=== PATIENT | male | born 1945 | race Caucasian/White ===

== ENCOUNTER 2020-04-03 17:05 | Inpatient (IN) | payer MEDICARE, OTHER ==
[~2020-04-03] VITALS: Ht 180.3 cm; Wt 101.6 kg
--- OUTSIDE RECORDS SUMMARY | ~2020-04-03 | XMS | Clinical Summary ---
Demographics + + + | Address | [address] | | | [place] [address] | + + + | Home Phone | | + + + | Preferred Language | Unknown | + + + | Marital Status | | + + + | Mandaen Affiliation | Unknown | + + + | Race | White | + + + | Ethnic Group | Unknown | + + + Author + + + | Author | [facility] | | | and [place] | + + + | Organization | [facility] | | | and [place] | + + + | Address | Unknown | + + + | Phone | Unavailable | + + + Support + + +---------+ + | Name | Relationship | Address | Phone | + + +---------+ + | Freya Rodriguez | ECON | Unknown | | + + +---------+ + Care Team Providers + +------+ + | Care [place] Supervisor Name | Role | Phone | + +------+ + | No, Physician | PCP | Unavailable | + +------+ + Allergies Not on File Medications Not on file Active Problems Not on file Social History + +-------+ +--------+------+ | Tobacco Use | Types | Packs/Day | Years | Date | | | | | Used | | + +-------+ +--------+------+ | Never Assessed | | | | | + +-------+ +--------+------+ + + + | Sex Assigned at | Date Recorded | | | | + + + | Not on file | | + + + Last Filed Vital Signs Not on file Plan of Treatment + + +-------+ + | Health Maintenance | Due Date | Last | Comments | | | | Done | | + + +-------+ + | Vaccine: | | | | | Dtap/Tdap/Td (1 - | 5 | | | | Tdap) | | | | + + +-------+ + | Vaccine: Zoster (1 | | | | | of 2) | 6 | | | + + +-------+ + | Vaccine: | | | | | Pneumococcal 65+ (1 | 1 | | | | of 1 - PPSV23) | | | | + + +-------+ + | Vaccine: Influenza | | | | | (#1) | 0 | | | + + +-------+ + Results Not on filefrom Last 3 Months"
--- OUTSIDE RECORDS SUMMARY | ~2020-04-03 | XMS | Encounter Summary ---
Demographics + + + | Address | [address] | | | [place] [address] | + + + | Home Phone | | + + + | Preferred Language | Unknown | + + + | Marital Status | | + + + | Judaism Affiliation | Unknown | + + + | Race | White | + + + | Ethnic Group | Unknown | + + + Author + + + | Author | [facility] | | | and [place] | + + + | Organization | [facility] | | | [...] Team Providers + +------+ + | Care County Demonstrator Name | Role | Phone | + +------+ + | Hernando Cummings DO | PCP | | + +------+ + Encounter Details +--------+ + + + + | Date | Type | Department | Care Team | Description | +--------+ + + + + | 06/23/ | Hospital | [facility] | Hernando Cummings | | | 2006 | Encounter | [facility] KEREN Smith DO [address] | | | | | [address] | [place] | | | | | [place], | [address] | | | | | [place] [address] | | | | | | [phone] | | | +--------+ + + + + Social History + +-------+ +--------+------+ | Tobacco [...] on file | | + + + documented as of this encounter Plan of Treatment Not on filedocumented as of this encounter Visit Diagnoses Not on filedocumented in this encounter"
--- OUTSIDE RECORDS SUMMARY | ~2020-04-03 | XMS | Encounter Summary ---
Demographics + + + | Address | [address] | | | [place] [address] | + + + | Home Phone | | + + + | Preferred Language | Unknown | + + + | Marital Status | | + + + | Nondenominational Affiliation | Unknown | + + + | Race | White | + + + | Ethnic Group | Unknown | + + + Author + + + | Author | [facility] | | | and [place] | + + + | Organization | [facility] | | | and [...] Team Providers + +------+ + | Care Post Framer Name | Role | Phone | + +------+ + | Hernando Cummings DO | PCP | | + +------+ + Encounter Details +--------+ + + + + | Date | Type | Department | Care Team | Description | +--------+ + + + + | 07/01/ | Hospital | [facility] | Hernando Cummings | | | 2006 | Encounter | [facility] IP Warren Smith DO [address] | | | | | [address] | [place] | | | | | [place], | [address] | | | | | [place] [address] | | | | | | [phone] | | | +--------+ + + + [...]
--- OUTSIDE RECORDS SUMMARY | ~2020-04-03 | XMS | Encounter Summary ---
Demographics + + + | Address | [address] | | | [place] [address] | + + + | Home Phone | | + + + | Preferred Language | Unknown | + + + | Marital Status | | + + + | Restoration Affiliation | Unknown | + + + [...] Team Providers + +------+ + | Care Senior Director Of [employer] Name | Role | Phone | + +------+ + PCP | Unavailable | + +------+ + Encounter Details +--------+ + + + + | Date | Type | Department | Care Team | Description | +--------+ + + + + | 10/26/ | Hospital | [facility] | PHYSICIAN, GUEST | | | 1989 | Encounter | [facility] | Physician, Er | | | | | [address]ERGENCY [address] | | | | | | [place] | | | | | | [address] | | | | | | [phone] | | | +--------+ + + + [...]
--- OUTSIDE RECORDS SUMMARY | ~2020-04-03 | XMS | Encounter Summary ---
Demographics + + + | Address | [address] | | | [place] [address] | + + + | Home Phone | | + + + | Preferred Language | Unknown | + + + | Marital Status | | + + + | Yazidi Affiliation | Unknown | + + + | Race | White | + + + | Ethnic Group | Unknown | + + + Author + + + | Author | [facility] | | | and [place] | + + + | Organization | [facility] | | | and [...] Team Providers + +------+ + | Care Tile Edger Name | Role | Phone | + +------+ + | Hernando Cummings DO | PCP | | + +------+ + Encounter Details +--------+ + + + + | Date | Type | Department | Care Team | Description | +--------+ + + + + | 05/19/ | Hospital | DO NOT USE-BAKARI | Hernando Cummings | | | 2006 - | Encounter | [facility] | DO [address] | | | | | [place] | [place] | | | 07/15/ | | | [address] | | | 2006 | | | | | +--------+ + + + [...] + + documented as of this encounter Discharge Summaries [facility] - 04/22/2008 12:00 AM PDT 13 5:43 AM PDTdocumented in this encounter [facility] 04/22/2008 12:00 AM PDT 13 5:43 AM PDTdocumented in this encounter H&P Notes [facility] 04/22/2008 12:00 AM PDT 13 5:43 AM PDTdocumented in this encounter Procedure Notes [facility] SC[facility] - 04/22/2008 12:00 AM PDT 13 5:43 AM PDTdocumented in this encounter Miscellaneous Notes Patient Care Conference - [facility] - 04/23/2008 12:00 AM PDT lan of Care - [facility] - 04/22/2008 12:00 AM PDT lan of Care - [facility] - 04/22/2008 12:00 AM PDT lan of Care - ON[facility] - 04/22/2008 12:00 AM PDT iscellaneous - ONBASE [facility]AN [facility] - 04/22/2008 12:00 AM P DT iscellaneous - ONBASE [facility] - 04/22/2008 12:00 AM PDT iscellaneous - ON[facility] - 04/22/2008 12:00 AM PDT sych - ON[facility] SC[facility] - 04/22/2008 12:00 AM PDTElectron ically signed by Andrez Thompson at 04/23/2013 5:43 AM PDTdocumented in this encounter Plan of Treatment Not on filedocumented as of this encounter Visit Diagnoses Not on filedocumented in this encounter"
--- OUTSIDE RECORDS SUMMARY | ~2020-04-03 | XMS | Encounter Summary ---
Demographics + + + | Address | [address] | | | [place] [address] | + + + | Home Phone | | + + + | Preferred Language | Unknown | + + + | Marital Status | | + + + | Holiness Affiliation | Unknown | + + + | Race | White | + + + | Ethnic Group | Unknown | + + + Author + + + | Author | [facility] | | | and [place] | + + + | Organization | [facility] | | | [...] Team Providers + +------+ + | Care Horse Race Timer Name | Role | Phone | + +------+ + | Hernando Cummings DO | PCP | | + +------+ + Encounter Details +--------+ + + + + | Date | Type | Department | Care Team | Description | +--------+ + + + + | 05/31/ | Hospital | [facility] | Hernando Cummings | | | 2006 | Encounter | [facility] IP Warern Smith DO [address] | | | | | [address] | [place] | | | | | [place], | [address] | | | | | [place] [address] | | | | | | [phone] | | | +--------+ + + + [...]
--- OUTSIDE RECORDS SUMMARY | ~2020-04-03 | XMS | Encounter Summary ---
Demographics + + + | Address | [address] | | | [place] [address] | + + + | Home Phone | | + + + | Preferred Language | Unknown | + + + | Marital Status | | + + + | Taoist Affiliation | Unknown | + + + | Race | White | + + + | Ethnic Group | Unknown | + + + Author + + + | Author | [facility] | | | and [place] | + + + | Organization | [facility] | | [...] Team Providers + +------+ + | Care Medical Lab Assistant Name | Role | Phone | + +------+ + | Hernando Cummings DO | PCP | | + +------+ + Encounter Details +--------+ + + + + | Date | Type | Department | Care Team | Description | +--------+ + + + + | 06/17/ | Hospital | [facility] | Hernando Cummings | | | 2006 | Encounter | [facility] KEREN Smith DO [address] | | | | | [address] | [place] | | | | | [place], | [address] | | | | | [place] [address] | | | | | | [phone] | | | +--------+ + + + [...]
--- OUTSIDE RECORDS SUMMARY | ~2020-04-03 | XMS | Clinical Summary ---
Demographics + + + | Address | [address] | | | [place] [address] | + + + | Home Phone | | + + + | Preferred Language | Unknown | + + + | Marital Status | | + + + | Jehovah'S Witness Affiliation | Unknown | + + + | Race | White | + + + | Ethnic Group | Unknown | + + + Author + + + | Author | [facility] | | | and [place] | + + + | Organization | [facility] | | | [...] Team Providers + +------+ + | Care Spring Layer Name | Role | Phone | + [...]
--- OUTSIDE RECORDS SUMMARY | ~2020-04-03 | XMS | Encounter Summary ---
Demographics + + + | Address | [address] | | | [place] [address] | + + + | Home Phone | | + + + | Preferred Language | Unknown | + + + | Marital Status | | + + + | Temple Affiliation | Unknown | + + + | Race | White | + + + | Ethnic Group | Unknown | + + + Author + + + | Author | [facility] | | | and [place] | + + + | Organization | [facility] | | [...] Team Providers + +------+ + | Care Counterperson Name | Role | Phone | + [...] [facility] IP Warren Smith DO [address] | | | | | [address] | [place] | | | | | [place], | [address] | | | | | [place] [address] | | | | | | [phone] | | | +--------+ + + + [...]
--- OUTSIDE RECORDS SUMMARY | ~2020-04-03 | XMS | Encounter Summary ---
Demographics + + + | Address | [address] | | | [place] [address] | + + + | Home Phone | | + + + | Preferred Language | Unknown | + + + | Marital Status | | + + + | Buddhism Affiliation | Unknown | + + + | Race | White | + + + | Ethnic Group | Unknown | + + + Author + + + | Author | [facility] | | | and [place] | + + + | Organization | [facility] | | | [...] Team Providers + +------+ + | Care Institutional Nutrition Consultant Name | Role | Phone | + [...] | | | [place] | [place] | | | 07/15/ | | | [address] | | | 2006 | | | [...] documented as of this encounter Discharge Summaries [facility] SC[facility] - 04/22/2008 12:00 AM PDT 13 5:43 AM PDTdocumented in this encounter [facility] 04/22/2008 12:00 AM PDT 13 5:43 AM PDTdocumented in this encounter H&P Notes [facility] 04/22/2008 12:00 AM PDT 13 5:43 AM PDTdocumented in this encounter Procedure Notes [facility] - 04/22/2008 12:00 AM PDT 13 5:43 AM PDTdocumented in this encounter Miscellaneous Notes Patient Care Conference - [facility] SC[facility] - 04/23/2008 12:00 AM PDT lan of Care - [facility] - 04/22/2008 12:00 AM PDT lan of Care - [facility] - 04/22/2008 12:00 AM PDT lan of Care - ON[facility] - 04/22/2008 12:00 AM PDT iscellaneous - ONBASE SCAN [facility] - 04/22/2008 12:00 AM P DT iscellaneous - ONBASE [facility] - 04/22/2008 12:00 AM PDT iscellaneous - ONBASE SCAN [facility] - 04/22/2008 12:00 AM PDT sych - ONBASE [facility] - 04/22/2008 12:00 AM PDTElectron ically signed by Andrez Thompson at 04/23/2013 5:43 AM PDTdocumented in this encounter Plan of Treatment Not on filedocumented as of this encounter Visit Diagnoses Not on filedocumented in this encounter"
--- OUTSIDE RECORDS SUMMARY | ~2020-04-03 | XMS | Encounter Summary ---
Demographics + + + | Address | [address] | | | [place] [address] | + + + | Home Phone | | + + + | Preferred Language | Unknown | + + + | Marital Status | | + + + | Baptism Affiliation | Unknown | + + + | Race | White | + + + | Ethnic Group | Unknown | + + + Author + + + | Author | [facility] | | | and [place] | + + + | Organization | [facility] | | | and [...] Team Providers + +------+ + | Care Consultant Education Name | Role | Phone | + [...] [facility] IP Warren Smith DO [address] | | | | | [address] | [place] | | | | | [place], | [address] | | | | | [place] [address] | | | | | | [phone] | | | +--------+ + + + [...]
--- OUTSIDE RECORDS SUMMARY | ~2020-04-03 | XMS | Encounter Summary ---
Demographics + + + | Address | [address] | | | [place] [address] | + + + | Home Phone | | + + + | Preferred Language | Unknown | + + + | Marital Status | | + + + | Yazidi Affiliation | Unknown | + + + | Race | White | + + + | Ethnic Group | Unknown | + + + Author + + + | Author | [facility] | | | and [place] | + + + | Organization | [facility] | | | and [...] Team Providers + +------+ + | Care High Lift Operator Name | Role | Phone | + [...] | [facility] KEREN Smith DO [address] | | | | | [address] | [place] | | | | | [place], | [address] | | | | | [place] [address] | | | | | | [phone] | | | +--------+ + + + [...]
--- OUTSIDE RECORDS SUMMARY | ~2020-04-03 | XMS | Encounter Summary ---
Demographics + + + | Address | [address] | | | [place] [address] | + + + | Home Phone | | + + + | Preferred Language | Unknown | + + + | Marital Status | | + + + | Latter-Day Affiliation | Unknown | + + + | Race | White | + + + | Ethnic Group | Unknown | + + + Author + + + | Author | [facility] | | | and [place] | + + + | Organization | [facility] | | | and [...] Team Providers + +------+ + | Care Physiognomist Name | Role | Phone | + +------+ + PCP | Unavailable | + +------+ + Encounter Details +--------+ + + + + | Date | Type | Department | Care Team | Description | +--------+ + + + + | 02/26/ | Hospital | [facility] | Kori Condon MD | | | 1996 | Encounter | [facility] | [place] | | | | | [address] | | | | | | [place], | | | | | | [place] [address] | | | | | | [phone] | | | +--------+ + + + [...]
--- OUTSIDE RECORDS SUMMARY | ~2020-04-03 | XMS | Encounter Summary ---
Demographics + + + | Address | [address] | | | [place] [address] | + + + | Home Phone | | + + + | Preferred Language | Unknown | + + + | Marital Status | | + + + | Yarsani Affiliation | Unknown | + + + | Race | White | + + + | Ethnic Group | Unknown | + + + Author + + + | Author | [facility] | | | and [place] | + + + | Organization | [facility] | | | and [...] Team Providers + +------+ + | Care Pump Room Operator Name | Role | Phone | [...] | | | | | | [place] [address] | | | | | | [phone] | | | +--------+ + + + [...]
--- OUTSIDE RECORDS SUMMARY | ~2020-04-03 | XMS | Encounter Summary ---
Demographics + + + | Address | [address] | | | [place] [address] | + + + | Home Phone | | + + + | Preferred Language | Unknown | + + + | Marital Status | | + + + | Rastafari Affiliation | Unknown | + + + | Race | White | + + + | Ethnic Group | Unknown | + + + Author + + + | Author | [facility] | | | and [place] | + + + | Organization | [facility] | | | [...] Team Providers + +------+ + | Care Group Leader [employer]iconductor Processing Name | Role | Phone | + [...] | [facility] KEREN Smith DO [address] | | | | | [address] | [place] | | | | | [place], | [address] | | | | | [place] [address] | | | | | | [phone] | | | +--------+ + + + [...]
--- OUTSIDE RECORDS SUMMARY | ~2020-04-03 | XMS | Encounter Summary ---
Demographics + + + | Address | [address] | | | [place] [address] | + + + | Home Phone | | + + + | Preferred Language | Unknown | + + + | Marital Status | | + + + | Latter Day Affiliation | Unknown | + + + | Race | White | + + + | Ethnic Group | Unknown | + + + Author + + + | Author | [facility] | | | and [place] | + + + | Organization | [facility] | | | and [...] Team Providers + +------+ + | Care Harness And Bag Inspector Name | Role | Phone | + [...] [place] | | | | | | [address] | | | | | | [phone] | | | +--------+ + + + [...]
[2020-04-03] MEDS ORDERED: ADULT ASPIRIN R81 MG PO (17:18)
[2020-04-03] MEDS ORDERED: VITAMIN B122500 MC1 PO (17:18)
[2020-04-03] MEDS ORDERED: VITAMIN D325 MCG PO (17:19)
--- NOTE | 2020-04-03 20:30 | NUR ---
ADMIT TO RM 128 PER STRETCHER FROM ED. PT IS AWAKE ALERT, ABLE TO MOVE SELF FROM STRETCHER TO BED. WILL REPEAT SOME QUESTIONS. TREMOR NOTED HANDS AND ALSO CHIN WHEN TEMP TAKEN. WHEN ASKED IF TREMOR WAS USUAL PT STATED NO. STATES HE IS DEHYDRATED FROM DOING YARD WORK. HR 140-160'S, DILTIAZEM GTT AT 10MG /HR, INCREASED TO 15MG/HR.
--- NOTE | 2020-04-03 21:25 | NUR ---
PER HE RN CALL PLACED TO DR. MARCIAL REGARDING IVF RATE INCREASE TO 200 MLS/HR AND DILTIAZEM 20 MG/HR. PT HR CURRENTLY 138-140. AFTER DISCUSSION OF PT PAST ETOH HX AND CURRENT SYMPTOMS OF TREMOR AND FORGETFULNESS, DR. MARCIAL TO START CIWA PROTOCOL. FURTHER ORDERS TO BE PLACED BY DR. MARCIAL. WILL UPDATE PRIMARY RN WHEN ADMISSION IS COMPLETE.
--- NOTE | 2020-04-03 21:30 | NUR ---
DILTIAZEMT GTT AT 20MG/HR HE CONTTO BE 130-140.
--- NOTE | 2020-04-03 22:15 | NUR ---
SECON IV STARTED AFTER SEVERAL ATTEMPTS. LAB DRAWN AND BLOOD CULTURES SENT. PT CONT TO BE VERY TALKATIVE AND REPETATIVE. GIVEN 5MG LOPRESSOR IV FOR HR. GIVEN 1MG ATIVAN FOR ANXIETY AND TREMORS.
--- NOTE | 2020-04-03 22:35 | NUR ---
ABLE TO TITRATE DILTIAZEM TO 10MG/HR BY 2215. DR MARCIAL NOTIFIED OF LACTIC ACID VALUE. WILL START 1 LNS BOLUS.
--- NOTE | 2020-04-04 00:30 | NUR ---
RESTING, BUT NOT SLEEPING. PT ASKING IF THE DIGITAL CLOCK ON WALL TALKED, WHEN NURSE MENTIONED THAT IV PUMPS MAKE NOISE PT THEN SPOKE ABOUT THEM SHOWING PICTURES OF PIONEERS. PT IS AWARE HE IS IN THE HOSPTITAL AND HAS PNUEMONIA. IS COOPERATIVE. CONT TO HAVE MILD TO MOD TREMOR. CONT ON DILTIAZEM GTT AT 10MG/HR. HR 95-110.
--- NOTE | 2020-04-04 02:38 | NUR ---
NOT HEARING VOICES NOW . HAS NOT REALLY SLEPT, GIVEN 1MG ATIVAN IV. IS SOMEWHAT ANXIOUS, ALSO CONT TO HAVE TREMORS. DILTIAZEM DEC TO 7.5MG/HR. DR MARCIAL GIVEN UPDATE AT 0120.
--- NOTE | 2020-04-04 03:57 | NUR ---
PT NOT SLEEPING, [employer] TREMORS [employer]. CIWA 18, DR MARCIAL CALLED AND ORDER FOR 2MG ATIVAN IV Q2HR PRN GIVEN.
--- NOTE | 2020-04-04 04:57 | NUR ---
SPEECH RAMBLING AND UNABLE TO FOLLOW INSTRUCTIONS/COMMANDS. REACHING OUT, PICKING THE AIR. UNDERWARE REMOVED AND ATTENDS PLACED. DID ATTEMPT TO HAVE PT VOID IN URINAL BUT PT UNABLE TO. IS VERY DIAPHORETIC.
--- NOTE | 2020-04-04 05:30 | NUR ---
PT SLEEPING. CARDIZEM AT 7.5MG
--- NOTE | 2020-04-04 07:26 | NUR ---
TRYING TO GET OOB. UNABLE TO FULLY SIT UP ON OWN. STATES WANTS TO GET UP. HAD PT TRY TO USE URIAN. VOIDED MFEW ML. DISORIENTED TO DATE TIME PLACE AND EVENT. GIVEN 2 MG ATIVAN IV.
--- NOTE | 2020-04-04 07:30 | NUR ---
REPORT RECIEVED. REMAINS RESTLESS AFTER AIVAN GIVEN. NOT MAKING SENSE WITH WORDS HE IS SAYING.
--- NOTE | 2020-04-04 08:00 | NUR ---
ATTEMPTING TO GET OOB. DIFFICULT TO REASON WITH PATIENT. IS SHORT OF BREATH, INCREASE WITH EXERTION.
--- NOTE | 2020-04-04 08:41 | NUR ---
VERY RESTLESS. IS NOT MAKING ANY SENSE WITH WHAT HE IS SAYING. NOT TRACKING AT ALL. IS ABLE TO FOLLOW COMMANDS, SUCH WIGGLING TOES. HAS BEEN TRYING TO GET OOB. UNABLE TO GET THROUGH TO PATIENT REGARDING NEED TO REMAINS IN BED. BREAKFAST HELD DUE TO CONDITION AT THIS TIME. CARDIZEM INFUSING AT 7.5 MG/HR. IVF PATENT AT 125 ML/HR. ROUNTINE MEDICATIONS GIVEN, INCLUDING LOPRESSOR 5 MG IV. PATIENT WILL NEED CLOSE OBSERVATION. WILL MEDICATE WITH ATIVAN NEEDED.
--- NOTE | 2020-04-04 08:50 | NUR ---
DR. MARCIAL UPDATE ON PATIENT CONDITION. ORDERS RECIEVED TO GIVE ATIVAN 2 MG IV NOW. PATIENT CONTINUES TO ATTEMPT TO GET OOB. IS NOT DIRECTABLE.
--- NOTE | 2020-04-04 10:50 | NUR ---
MORE RESTLESS. ATTEMPTING TO GET OOB. ATIVAN 2 MG IV GIVEN. KATIA LINEN CHANGED. PATIENT IS VERY RESISTANT TO MOVE IN BED. VERY DIFFICULT TO MOVE PATIENT. O2 INCREAED TO 4 L O2 SATS DOWN TO 88 ON 2 L .
--- NOTE | 2020-04-04 12:02 | NUR ---
TALKED WITH PATIENTS VIA PHONE. PATIENT IS MUCH MORE CALM AFTER ATIVAN 2 MG IV GIVEN AT 1055. CARDIZEM GTT REMAINS AT 5 MG/HR. IVF AT 125. HAS NOT VOIDED YET THIS SHIFT. ASSESSMENT DONE. IS MUMBLING FEW WORDS, IS DIFFICULT TO UNDERSTAND.
--- NOTE | 2020-04-04 12:26 | NUR ---
COOPERATIVE EDUCATION DIRECTOR HERE TO DO ECHO AT BEDSIDE.
--- NOTE | 2020-04-04 13:20 | NUR ---
PATIENT REMAINS VERY RESTLESS. DR. MARCIAL HERE TO SEE PATIENT. CONTINUES TO MUMBLE FEW WORDS, UNABLE TO UNDERSTAND. WILL ATTEMPT TO SIT UP IN BED. SWINGS LEGS TO SIDE OF BED.
--- NOTE | 2020-04-04 13:30 | NUR ---
MARTINEZ CATH PLACED WITH RETURN OF DARK ORANGE URINE. PATIENT IS RESTLESS. O2 TO OXYMASK AT [address] MARCIAL AWARE. UA SENT TO LAB. ORDERS RECIEVED. CARDIZEM GTT AT 5 MG/HR. NS AT 125 ML/HR. ATIVAN 2 MG IV REPEATED PATIENT IS SO RESTLESS. HAS BEEN RECIEVING 2 MG ATIVAN Q 2 HRS SINCE 07 THIS AM. LABS DRAWN.
--- NOTE | 2020-04-04 14:30 | NUR ---
DR. MARCIAL UPDATED ON PATIENT CONTINUE AGITATION AND VERY LOW URINE OUTPUT. . AWAITING LABS AT THIS TIME. D
--- NOTE | 2020-04-04 14:35 | EKG ---
[facility] [address] [facility] [place], [place] [address] Signed Atrial fibrillation with rapid ventricular response Possible Anterior infarct , age undetermined Abnormal ECG No previous ECGs available Confirmed by SUSIE MARCIAL MD ([id number]) on 04/04/2020 2:35:40 PM Electronically Signed By: SUSIE MARCIAL MD 04/04/20 1435 PATIENT NAME: ADRIENNE LANDRUM Electrocardiogram DATE OF : 45 PHYSICIAN: SUSIE MARCIAL MD REPORT #: [id number] REPORT IS CONFIDENTIAL AND NOT TO BE RELEASED WITHOUT AUTHORIZATION
--- NOTE | 2020-04-04 15:15 | NUR ---
LAB RESULTS, K= 5.2 BUN AND CREAT ARE INCREASING. NS BOLUS 1000 ML OVER 1 HR HUNG. WILL GIVE LACTULOSE ORDERED. AMMONIA LEVEL 47.
--- NOTE | 2020-04-04 15:45 | NUR ---
VALIUM 5 MG IV GIVEN PER ORDERS. LACTULOSE 200 MG IN 700 ML OF WATER GIVEN [place] ORDERS. TOLERATED POOR. NOT COOPERATIVE., NOT ABLE TO HOLD SOLUTION. PATIENT WAS UNABLE TO HOLD SOLUTION. IT RETURNED QUICKLY TO BED BRIDGES.
--- NOTE | 2020-04-04 16:20 | NUR ---
BOLUS INFUSED. IVF OF NS 125 HUNG. ASSESSMENT DONE. EXTREMLY POOR U/O OF 10ML OF ORANGE LIKE URINE OVER PAST HR. O2 INCREASED TO 8 LITERS EARLIER. REMAINS ON OXYMASK.
--- NOTE | 2020-04-04 16:50 | NUR ---
CARDIZEM GTT INCREASED TO 10 MG/HR HR UP TO 130-140'S.
--- NOTE | 2020-04-04 17:00 | NUR ---
DR. MARCIAL UPDATED ON PATIENT STATUS. IS AWARE OF CURRENT VITAL SIGNS. I/O. DECREASED U/O. O2 DEMAND INCREASE. ABD BREATHING WITH LONG EXP PHASE.
--- NOTE | 2020-04-04 17:40 | NUR ---
DR. MARCIAL IN UNIT. V.O. FOR ABGS GIVEN.
--- NOTE | 2020-04-04 18:14 | NUR ---
ABGS DRAWN. UPPER WHEEZES HEARD. LABORED RESP.
--- NOTE | 2020-04-04 18:35 | NUR ---
ABG RESULTS. PH-7.32, PCO2-40.0, PO2-83, HCO3-19.8. DR. ANIKET HOLGUIN.
--- NOTE | 2020-04-04 19:14 | NUR ---
REPORT TO NEXT SHIFT. CONTINUES ON O2 AT 8 L OXYMASK, CARDIZEM AT 15 MG/HR. HR 110-120 BPM. BP-131/79. IV SITES PATENT. HAS HAD NOTHING BY MOUTH ALL DAY. LAST SEDATION GIVEN AT 1545 THIS AFTERNOON. CONTINUES WITH UPPER AIRWAY WHEEZES WITH INCREASED EXERTION. HAS HAS TREMORS FOR MOST OF DAY. REMIANS CONFUSED TO ALL. FACE IS VERY ALLAN.
--- NOTE | 2020-04-04 20:15 | NUR ---
EVENING MEDS PROVIDED PER ORDER. PATIENT IS RESTLESS, RESPONDS MINIMALLY TO VERBAL COMMANDS. UNABLE TO ANSWER ANY ORIENTATION QUESTIONS. PATIENT REPOSITIONED IN BED. HOB ELEVATED. ABDOMINAL BREATHING NOTED. 8L OXY MASK IN PLACE, O2 SAT 92% AND RR 20'S. AND IS SOFT. MARTINEZ IN PLACE. MINIMAL DARK URINE OUTPUT. HR 120-125, CARDIZEM AT 15 MG/HR.
[2020-04-04] MEDS ORDERED: ENOXAPARIN40 MG/0.4 SUB-Q (20:43)
[2020-04-04] MEDS ORDERED: CEFTRIAXONE2 G1 IV (20:43)
[2020-04-04] MEDS ORDERED: METOPROLOL5 MG/5 M2 IV (20:43)
[2020-04-04] MEDS ORDERED: LACTULOSE10 GM/151 PR (20:44)
[2020-04-04] MEDS ORDERED: LORAZEPAM2 MG/1 M1 IV (20:44)
[2020-04-04] MEDS ORDERED: THIAMINE H100 MG/1 M IV (20:45)
[2020-04-04] MEDS ORDERED: PROTONIX IV40 MG IV (20:45)
--- NOTE | 2020-04-04 21:02 | PATH ---
[facility] [address] [facility] [facility] [place], [place] [address] Signed ORDERING PHYSICIAN: Everton Yañez MD PATIENT NAME: ADRIENNE LANDRUM GENDER: Paulie : 1945 SPECIMEN(S): MOLECULAR PATHOLOGY RESULTS: SARS-CoV-2 Not Detected ADDITIONAL NOTES.: The [place] Fusion SARS-CoV-2 Assay is a multiplex real-time PCR (RT-PCR) in vitro diagnostic test intended for the qualitative detection of RNA from SARS-CoV-2 from individuals who meet COVID-19 clinical and/or epidemiological criteria. In general, SARS-CoV-2 RNA can be detected during the acute phase of infection. Positive results indicate the presence of SARS-CoV-2 RNA. Clinical correlation with patient history and other diagnostic information is necessary to determine patient infection status. Positive results do not rule out bacterial infection or co-infection with other viruses. Negative results do not preclude SARS-CoV-2 infection and should not be used as the sole basis for patient management decisions. Negative results must be combined with other clinical observations, patient history, and epidemiological information. The [place] Fusion SARS-CoV-2 Assay is not yet approved or cleared by the [place] FDA. When there are no FDA-approved or cleared tests available, and other criteria are met, FDA can make tests available under an emergency access mechanism called an Emergency Use Authorization (EUA). The EUA for this test is supported by the [place] of Health and Human Service's (HHS's) declaration that circumstances exist to justify the emergency use of in vitro diagnostics for the detection and/or diagnosis of the virus that causes COVID-19. This EUA will remain in effect for the duration of the COVID-19 declaration justifying emergency of IVDs, unless it is terminated or revoked by FDA, after which the test may no longer be used. The [place] Fusion SARS-CoV-2 Assay is for use only under EUA in US laboratories certified under the Clinical Laboratory Improvement Amendments of 1988 (CLIA) to perform high complexity tests. [facility] is certified under CLIA to perform high complexity PATIENT NAME: ADRIENNE LANDRUM PATHOLOGY DATE OF : 45 REPORT #: [id number] PHYSICIAN: CHARO ESQUIVEL PCP: LEONORA LANDRUM REPORT IS CONFIDENTIAL AND NOT TO BE RELEASED WITHOUT AUTHORIZATION [address] [address] Signed clinical laboratory testing. PERFORMING LABORATORY.: Molecular testing was performed by [facility] [address] [place], [place] [address], [place] [address] ([employer]: Sunny Randhawa D.O.; CLIA#: [id number]) Diagnostician: System Interface Pathologist Electronically Signed 04/04/2020 Copies: ~ PATIENT NAME: ADRIENNE LANDRUM PATHOLOGY DATE OF : 45 REPORT #: [id number] PHYSICIAN: CHARO ESQUIVEL PCP: LEONORA LANDRUM REPORT IS CONFIDENTIAL AND NOT TO BE RELEASED WITHOUT AUTHORIZATION
--- NOTE | 2020-04-04 21:42 | NUR ---
PATIENT RESTING MORE PEACEFULLY. HR 100-110, VS STABLE.
--- NOTE | 2020-04-04 22:49 | NUR ---
2200 [facility] ARRIVED. PATIENT RESTLESS WHEN STIMULATED. PRN ATIVAN GIVEN FOR TRANSFER. PATIENT CONTINUED ON CARDIZEM DRIP AND IV FLUIDS PER ORDER. VS STABLE UPON DEPARTURE. 2215 REPORT GIVEN TO ACCEPTING HOSPITAL. 2220 FAMILY UPDATED
== END 2020-04-04 22:20 | disposition short-term general hospital (02) | DRG 308 ==
LOC: ED 17:05 → CCU 19:30
PROVIDERS: ADMIT Internal Medicine
DX: I48.91 Unspecified atrial fibrillation (principal); N17.0 Acute kidney failure with tubular necrosis; E87.2 Acidosis; F10.231 Alcohol dependence with withdrawal delirium; Z20.828 Contact with and (suspected) exposure to other viral communicable diseases; K21.9 Gastro-esophageal reflux disease without esophagitis; E53.8 Deficiency of other specified B group vitamins; K70.9 Alcoholic liver disease, unspecified; D69.59 Other secondary thrombocytopenia; I42.9 Cardiomyopathy, unspecified; E86.0 Dehydration; Z79.899 Other long term (current) drug therapy; Z79.82 Long term (current) use of aspirin
CPT/HCPCS: 36600; 71045; 80048; 80053; 80076; 81001; 82140; 82607; 82803; 83605; 83615; 83735; 84484; 85025; 85379; 85610; 93005; 93010; 93306; 96374; 96376; 99285-25; C9113; C9803; G0480; J0456; J0696; J1100; J1650; J2060; J2405; J3360; J3411; J7030; J7060

== ENCOUNTER 2023-07-14 22:38 | Inpatient (IN) | payer MEDICARE ==
[~2023-07-14] VITALS: Ht 180.3 cm; Wt 101.6 kg
[~2023-07-14 22:38] MED LIST: ADULT ASPIRIN R81 MG PO; ATORVASTATIN CA40 MG PO; AZO BLADDER CO300 MG PO; B-100 COMPLEX100 MG PO; CEFTRIAXONE2 G1 IV; ENOXAPARIN40 MG/0.4 SUB-Q; K-TAB ER20 MEQ PO; LACTULOSE10 GM/151 PR; LANOXIN125 MCG PO; LASIX20 MG PO; LIDODERM1 EACH TOP; LISINOPRIL5 MG PO; LORAZEPAM2 MG/1 M1 IV; METOPROLOL SUCC25 MG PO; METOPROLOL5 MG/5 M2 IV; OMEPRAZOLE20 MG PO; PROTONIX IV40 MG IV; SIMVASTATIN20 MG PO; SLOW-MAG71.5 MG PO; THIAMINE H100 MG/1 M IV; TOPROL XL100 MG PO; VITAMIN D325 MCG PO; WARFARIN SODIUM5 MG PO; ZESTRIL2.5 MG PO
[2023-07-14 23:21] LABS: BASOPHILS 0.5 % (0-2); EOSINOPHILS 2.3 % (0-6); HEMATOCRIT 24.7 % (35.0-50.0); HEMOGLOBIN 8.6 g/dL (12.0-18.0); LYMPHOCYTES 15.4 % (24-44); MCH 34.6 (27-36); MCHC 34.7 g/dl (30-36); MCV 99.6 fl (81-99); MONOCYTES 10.2 % (0-12); NEUTROPHILS 71.6 % (39-80); PLATELET COUNT 131 K/uL (140-440); RBC 2.48 M/ul (4.3-5.7); RDW 13.7 (10.5-15.0)
[2023-07-14 23:30] LABS: INR 17.92 (0.80-1.30)
[2023-07-14 23:36] LABS: ALBUMIN 3.2 g/dL (3.4-5.0); ANION GAP 16.2 (7-21); BILIRUBIN, TOTAL 0.8 ng/dL (0.2-1.0); BUN/CREATININE RATIO 29.45 (6.0-28.6); CALCIUM 8.3 mg/dL (8.5-10.1); CREATININE, SERUM 1.29 mg/dL (0.70-1.30); POTASSIUM 4.2 mmol/L (3.5-5.1); PROTEIN, TOTAL 6.4 g/dL (6.4-8.2)
[2023-07-15] VITALS (19 sets, daily range): BP systolic 85–159; BP diastolic 43–102
[2023-07-15 00:44] LABS: ABO O; ANTIBODY SCREEN NEGATIVE; RH POSITIVE
--- NOTE | 2023-07-15 07:30 | NUR ---
REPORT RECEIVED FROM [facility] HOUSE FLOAT - PT RESTING IN BED AWAKE AND ALERT. ORIENTED X4. NOTED TO HAVE EMESIS - CLEAR, APPROX 50ML. PT STATES HE HASNT EATEN ANYTHING "ALL DAY" AND THAT IS WHY HE IS NAUSEATED. LAB IN ROOM TO DRAW LABS. NOTED THAT BLOOD BAND DOES NOT HAVE CORRECT LAST NAME, ORDER ENTERED FOR NEW TYPE AND SCREEN. BLOOD BAND REPLACED WITH LAB. LACERATION ON TOP OF HEAD NO LONGER BLEEDING - FRESH MOIST WASH RAG PLACED ON HEAD PER PT REQUEST. LEFT LOWER LEG SIGNIFICANT NON PITTING EDEMA WITH MULTIPLE STAGES OF BRUISING ALL OVER. PT STATES THIS HAS BEEN ONGOING FOR SEVERAL DAYS WITHOUT KNOWN INJURY.
--- NOTE | 2023-07-15 08:05 | NUR ---
PRN MORPHINE 2MG ADMINISTERED FOR 7/10 PAIN IN LEFT LOWER LEG. PEDAL PULSE FOUND WITH DOPPLER - FAINT - CONSISTENT WITH RATE ON HEART MONITOR. PT STATES NAUSEA IS IMPROVED, SIPPING APPLE JUICE. ORAL PROTONIX SWALLOWED WITHOUT DIFFICULTY.
[2023-07-15 08:11] LABS: HEMOGLOBIN 7.7 g/dL (12.0-18.0)
[2023-07-15 08:13] LABS: BASOPHILS 0.3 % (0-2); EOSINOPHILS 0.1 % (0-6); HEMATOCRIT 22.8 % (35.0-50.0); MCH 34.2 (27-36); MCHC 33.9 g/dl (30-36); MCV 100.9 fl (81-99); MONOCYTES 9.5 % (0-12); NEUTROPHILS 84.1 % (39-80); PLATELET COUNT 123 K/uL (140-440); RBC 2.26 M/ul (4.3-5.7); RDW 13.6 (10.5-15.0)
[2023-07-15 08:18] LABS: INR 2.32 (0.80-1.30); PROTIME 24.5 Sec (11.2-14.2)
--- NOTE | 2023-07-15 08:29 | NUR ---
PT RESTING IN BED WITH EYES CLOSED. RR EVEN AND UNLABORED. AT BEDSIDE.
[2023-07-15 09:05] LABS: ABO O; RH POSITIVE
--- NOTE | 2023-07-15 09:05 | NUR ---
PT EXPERIENCING EMESIS - 5MG COMPAZINE ADMINISTERED IV. EMESIS REMAINS CLEAR/LIGHT GREEN IN COLOR. CIWA SCORE REMAINS AT 10, POSISTIVE FOR TREMORS, NAUSEA/VOMITING AND DIAPHORESIS. WILL CONTINUE TO ASSESS.
[2023-07-15 09:06] LABS: ANTIBODY SCREEN NEGATIVE
--- NOTE | 2023-07-15 09:06 | NUR ---
VOMITED 100 ML OF LIGHT YELLOW STOMACH CONTENTS.
--- NOTE | 2023-07-15 09:10 | NUR ---
Spoke with pt for CM assessment. Pt has some trouble giving history. He states he lives with his in a one story home. Per nurse, states he is a heavy drinker. Pt states he is active, he cont. to work and does [place], and [facility]. Pt states he has had problems for a few years with AFIB and he had an incident with his R leg 2-3 years ago and it does not work well. He is unable to remember why/how his leg was injured. He does state he was shipped and had surgery. There was possible neuro injury to leg, he cannot remember. Pt states he has 2 canes, walker, wc, walking sticks, and grab bars in the shower and near the toilet. He states some of the DME was his in laws. Pt denies financial issues as he cont to work. Pt. drives. Pt states he came to the ER after falling and lacerated his head. Pt states he is a but is unsure if he has VA insurance. He asks I call his for details and he states he cannot remember. Dr Rojo arrives and plans on checking pressures in pt swollen leg on the left.
--- NOTE | 2023-07-15 10:00 | NUR ---
THIS RN IN ROOM ROUNDING WITH DR. GARCIA. PT EDUCATED ON S/S OF COMPARTMENT SYNDROME AND ADVISED TO PREFORM NEEDLE COMPARTMENT PRESSURE TEST. CONSENT OBTAINED AND PROCEDURE COMPLETED WITHOUT DIFFICULTY. MEDIAL CALF PRESSURE MEASURED 37 - LATERAL 7. PT ADVISED OF NEED FOR FASCIOTOMY OF LOWER LEG TO RELIEVE PRESSURE TO PREVENT FURTHER TISSUE INJURY. PT STATES HE IS UNSURE AT THIS TIME AND WOULD LIKE TIME TO THINK ABOUT IT.
[2023-07-15 10:35] LABS: INR 2.16 (0.80-1.30); PROTIME 23.2 Sec (11.2-14.2)
--- NOTE | 2023-07-15 10:45 | NUR ---
Requested by staff to return. Spoke with Rn and Dr. would like to complete a fasciotomy to reduce pressure. Pt. is declining and he is concerned his insurance will not cover. Let the pt know, emergency surgery should be covered. He is wanting to wait until tomorrow. He and Dr. Rojo attempted to call the but were unable to reach. I called Freya and she states she is pulling into the parking lot. 1050 into room and speaking with Pt. I updated the , Dr. Rojo would like to complete the surgery [place]. She and patient have multiple questions regarding surgery. Naz from Anesthesia arrives and attempts to answer questions. I texted Dr. Rojo and asked if he could return to the room to answer questions and he arrived at 1055.
--- NOTE | 2023-07-15 10:55 | NUR ---
AND CASE MANAGMENT IN ROOM TO DISCUSS SURGERY AND ANSWER QUESTIONS PT HAS ABOUT MOVING FORWARD. THIS RN AND CASE MANAGEMENT BOTH EDUCATED PT ON HARM ASSOCIATED WITH NOT COMPLETING SURGERY. OR CREW ALSO AVAILABLE AT BEDSIDE FOR QUESTIONS.
--- NOTE | 2023-07-15 11:15 | NUR ---
PT OFF FLOOR TO OR WITH OR STAFF
--- NOTE | 2023-07-15 13:02 | NUR ---
PT BACK FROM OR WITH PACU STAFF AT BEDSIDE FOR RECOVERY
--- NOTE | 2023-07-15 13:36 | EKG ---
[facility] [address] [place] [address] Signed Normal sinus rhythm with sinus arrhythmia Normal ECG When compared with ECG of 03-APR-2020 17:22, Sinus rhythm has replaced Atrial fibrillation Vent. rate has decreased BY 111 BPM Nonspecific T wave abnormality, improved in Inferior leads Nonspecific T wave abnormality no longer evident in Lateral leads Confirmed by REINA PUENTE MD ([id number]) on 07/15/2023 1:35:41 PM Electronically Signed By: REINA PUENTE 07/15/23 1336 PATIENT NAME: ADRIENNE LANDRUM Electrocardiogram DATE OF : 45 PHYSICIAN: REINA PUENTE REPORT #: [id number] REPORT IS CONFIDENTIAL AND NOT TO BE RELEASED WITHOUT AUTHORIZATION
--- NOTE | 2023-07-15 13:45 | NUR ---
RECIEVED REPORT FROM MELVIN CHICAS. PT WAKES TO VOICE EASILY. REPORTS BEING COLD. GIVEN WARM BLANKETS. POST TIBIAL AND PEDAL PULSES FELT. PTS AT BEDISE
--- NOTE | 2023-07-15 14:10 | NUR ---
THIS RN BACK FROM LUNCH BREAK - PT RESTING IN BED ON BACK WITH EYES CLOSED RR EVEN AND UNLABORED. HR MONITOR AND CPOX IN PLACE, WNL. LEFT LEG REMAINS ELEVATED ON PILLOWS. IV SITE PATENT WITH FLUIDS INFUSING WITHOUT DIFFICULTY.
--- NOTE | 2023-07-15 14:11 | NUR ---
07/15/23 1411 Lupe Reyes 1300 PT ARRIVED IN PACU NON RESPONSIVE. CHIN LIFT HELD BY RN. L LEG ELEVATED ON ONE PILLOW WITH TASHA DRAIN PRESENT. 1310 ANESTHESIA AT BEDSIDE. NO CHANGE IN PT STATUS. 1320 PT AWAKENS AND TALKS TO STAFF, THEN FALLS BACK ASLEEP. 1330 OXYGEN MASK REMOVED AND O2 @ 4L VIA NC PLACED. 1340 DR AT BEDSIDE. NEW ORDERS TO ELEVATE LEG ABOVE THE HEART. 3 PILLOWS PLACED UNDER L LEG. 1345 OXYGEN DECREASED TO 2L. REPORT GIVEN TO WAREHOUSE SHIPPING CLERK. BED PLUGGED IN.
[2023-07-15 14:14] LABS: BASOPHILS 0.2 % (0-2); HEMATOCRIT 19.3 % (35.0-50.0); HEMOGLOBIN 6.5 g/dL (12.0-18.0); LYMPHOCYTES 6.6 % (24-44); MCH 34.4 (27-36); MCHC 33.7 g/dl (30-36); MCV 101.8 fl (81-99); MONOCYTES 10.2 % (0-12); PLATELET COUNT 121 K/uL (140-440); RDW 13.7 (10.5-15.0)
[2023-07-15 14:47] LABS: IS CROSSMATCH COMPATIBLE
--- NOTE | 2023-07-15 15:10 | NUR ---
THIS RN IN ROOM TO ASSIST PT WITH URINAL AND ADMINISTER IV ANTIBIOTICS. SUDDEN ONSET OF SVT NOTED ON MONITOR WITH RATES HIGH 200. PT ASYMPTOMATIC, RESTING QUIETLY IN BED. MD NOTIFIED VIA TELEPHONE. ORDER RECEIVED TO PUSH 5MG LOPRESSOR Q5MIN X3. HR SLOWED BUT LARGLY UNRESPONSIVE TO DOSES. ORDER RECEIVED TO PUSH 10MG CARDIZEM IV. RATES SLOWED TO LOW 100'S. PRESSURES REMAIN STABLE TOLERATING MEDICATION PUSHES. EKG COMPLETE - AFIB WITH RVR. MD REMAINS AT BEDSIDE MONITORING PT.
--- NOTE | 2023-07-15 15:35 | NUR ---
1 UNIT PRBC STARTED USING RIGHT AC IV SITE.
--- NOTE | 2023-07-15 16:20 | NUR ---
ASSESSMENT COMPLETE - BLOOD UNIT CONTINUES TO ADMINISTER INTO RIGHT AC IV SITE WITHOUT DIFFICULTY. LEFT LOWER LEG PULSES AUSCULTATED WITH DOPPLER. SURGICAL SITES REMAIN WRAPPED WITH SARA BANDAGE FROM OR - SATURATED WITH SANGUINEOUS DRAINAGE ON SARA WRAP AND CHUX, ELEVATED ON SEVERAL PILLOWS. PT DENIES PAIN OR NAUSEA AT THIS TIME. APPLE JUICE PROVIDED. ABLE TO HOLD URINAL BY SELF TO VOID 50ML URINE. SLIGHT TREMORS NOTED, INCREASING SINCE SURGERY, NEGATIVE FOR OTHER CIWA SCORES AT THIS TIME.
--- NOTE | 2023-07-15 16:26 | NUR ---
medications reconciled using pharmacy records, PCP chart notes, and patient interview from recent AC visit
--- NOTE | 2023-07-15 16:57 | NUR ---
DR. GARCIA UPDATED VIA PHONE CALL ON PT STATUS. IF LATERAL ASPECT CONTINUES TO SATURATE DRESSING OVERBAL ORDERS RECEIVED TO TAKE SARA WRAP DOWN AND REPLACE SOILED GAUZE WITH PLAIN GAUZE AND REWRAP, CALL IF CONCERN FOR LARGE HEMATOMA UNDER FLAP.
--- NOTE | 2023-07-15 17:29 | NUR ---
PRBC INFUSION COMPLETE - VS STABLE, NO REACTION NOTED. DILT DRIP STARTED AT 2.5MG/HR TO TITRATE. PT DENIES PAIN AT THIS TIME. TOLERATING CLEAR LIQS WITHOUT NAUSEA. CIWA SCORE DOES NOT INDICATE NEED FOR ATIVAN AT THIS TIME.
--- NOTE | 2023-07-15 18:18 | NUR ---
PT REMAINS RESTING IN BED - VISITING WITH . DILT DRIP TITRATION TO 10MG/HR. PT COMPLAINS OF NAUSEA - PRN ADMINISTERED. DENIES PAIN AT THIS TIME.
[2023-07-15 18:48] LABS: BASOPHILS 0.3 % (0-2); EOSINOPHILS 0.1 % (0-6); HEMATOCRIT 20.8 % (35.0-50.0); HEMOGLOBIN 7.3 g/dL (12.0-18.0); LYMPHOCYTES 8.1 % (24-44); MCH 34.1 (27-36); MCHC 35.2 g/dl (30-36); MCV 96.8 fl (81-99); MONOCYTES 12.8 % (0-12); NEUTROPHILS 78.7 % (39-80); PLATELET COUNT 109 K/uL (140-440); RBC 2.15 M/ul (4.3-5.7); RDW 14.6 (10.5-15.0)
--- NOTE | 2023-07-15 18:57 | NUR ---
1MG ATIVAN ADMINISTERED FOR CIWA SCORE 8 - PTS TREMORS APPEAR TO BE INCREASING WELL DIAPHORESIS.
--- NOTE | 2023-07-15 19:30 | NUR ---
REPORT RECEIVED FROM CRICKET CHICAS. IN TO DO BEDSIDE HANDOFF AND ASSESS LLE AND DRESSING.
--- NOTE | 2023-07-15 20:24 | NUR ---
PT JUST CONVERTED TO SINUS RHYTHM WITH RATE 80-90'S. DR PADILLA ROUNDING ON UNIT AND AWARE, ORDER GIVEN FOR 1 MORE UNIT OF PRBC'S. PT RESTING WITH EYES CLOSED, RESP EVEN AND UNLABORED.
[2023-07-15 21:11] LABS: IS CROSSMATCH COMPATIBLE
--- NOTE | 2023-07-15 21:45 | NUR ---
2 OF 2 UNITS OF PRBCS STARTED INFUSING, SLOW RATE FOR FIRST 15 MINUTES, PT TOLERATED WELL AND INFUSION INCREASED TO 150ML/HR. PT HAS NO C/O AT THIS TIME, CONTINUES TO HAVE LLE ELEVATED ON PILLOWS. NOW TRYING SIPS OF WATER.
--- NOTE | 2023-07-15 22:29 | EKG ---
[facility] [address] [place] [address] Signed Atrial fibrillation with rapid ventricular response Abnormal ECG When compared with ECG of 14-JUL-2023 23:43, Atrial fibrillation has replaced Sinus rhythm Vent. rate has increased BY 58 BPM Confirmed by Milena Dover MD () on 07/15/2023 10:28:55 PM Electronically Signed By: MILENA DOVER MD 07/15/232228 PATIENT NAME: LANDRUMADRIENNE DAVIS Electrocardiogram DATE OF : 45 PHYSICIAN: MILENA DOVER MD REPORT #: [id number] REPORT IS CONFIDENTIAL AND NOT TO BE RELEASED WITHOUT AUTHORIZATION
--- NOTE | 2023-07-15 23:40 | NUR ---
2/2 UNIT OF PRBCS COMPLETED. PT AWAKE IN BED, JUICE AND WATER GIVEN PER REQUEST.
[2023-07-16] VITALS (20 sets, daily range): BP systolic 110–151; BP diastolic 61–104
--- NOTE | 2023-07-16 00:15 | NUR ---
LAB IN TO DRAW CBC.
[2023-07-16 00:31] LABS: BASOPHILS 0.6 % (0-2); EOSINOPHILS 0.3 % (0-6); HEMATOCRIT 19.3 % (35.0-50.0); HEMOGLOBIN 6.8 g/dL (12.0-18.0); LYMPHOCYTES 12.7 % (24-44); MCH 33.5 (27-36); MCHC 35.4 g/dl (30-36); MCV 94.8 fl (81-99); MONOCYTES 14.7 % (0-12); NEUTROPHILS 71.7 % (39-80); PLATELET COUNT 110 K/uL (140-440); RBC 2.04 M/ul (4.3-5.7); RDW 16.1 (10.5-15.0)
--- NOTE | 2023-07-16 01:31 | NUR ---
NEWEST CBC RESULTS CALLED TO DR PADILLA, ORDER GIVEN TO TRANSFUSE ONE MORE UNIT OF PRBC'S. LAB NOTIFIED, AWAITING BLOOD FROM LAB.
[2023-07-16 01:57] LABS: IS CROSSMATCH COMPATIBLE
--- NOTE | 2023-07-16 03:00 | NUR ---
PT HAS BEEN AWAKE THE LAST COUPLE OF HOURS, APPLE JUICE GIVEN PER REQUEST AND HE WAS ABLE TO TOLERATE IT WELL. PT IS ON HIS PHONE, REPOSITIONING SELF IN BED FROM TIME TO TIME. IS A BIT DISORIENTED TO TIME BUT SEEMS TO REORIENT EASILY.
--- NOTE | 2023-07-16 04:02 | NUR ---
PT IS RESTING WITH EYES CLOSED, RESP EVEN AND UNLABORED, HR 80'S SINUS RHYTHM, BLOOD INFUSING.
--- NOTE | 2023-07-16 04:45 | NUR ---
3/3 PRBCS COMPLETED INFUSION, PT IS NOW RESTING WITH EYES CLOSED, RRR HR 87 NSR.
--- NOTE | 2023-07-16 05:21 | NUR ---
PT RESTING WITH EYES CLOSED, LLE UP ON PILLOWS.
[2023-07-16 05:29] LABS: HEMOGLOBIN 8.7 g/dL (12.0-18.0); MCH 32.4 (27-36); MCHC 34.7 g/dl (30-36); MCV 93.5 fl (81-99); PLATELET COUNT 121 K/uL (140-440); RBC 2.68 M/ul (4.3-5.7); RDW 16.6 (10.5-15.0)
[2023-07-16 05:36] LABS: INR 1.83 (0.80-1.30); PROTIME 20.4 Sec (11.2-14.2)
[2023-07-16 05:44] LABS: ANION GAP 11.2 (7-21); BUN/CREATININE RATIO 20.96 (6.0-28.6); CALCIUM 7.7 mg/dL (8.5-10.1); CREATININE, SERUM 1.24 mg/dL (0.70-1.30); PHOSPHORUS, INORGANIC 2.2 mg/dL (2.5-4.9); POTASSIUM 4.2 mmol/L (3.5-5.1)
--- NOTE | 2023-07-16 05:44 | NUR ---
SARA WRAP REMOVED FROM LLE DRESSING, SATURATED WITH SEROSANG FLUID AND SOME BLOOD, FRESH SARA WRAP APPLIED. PT HAS CONT TO HAVE SMALL AMOUNT OF SEEPING OF SANGUINOUS FLUID FROM DRESSING, EDWIN UNDERNEATH PTS LEG HAS BEEN CHANGED TWICE THIS SHIFT WITH MODERATE AMOUNT OF DRAINAGE ON PAD. PT DID C/O SOME PAIN WITH THE WRAPING OF HIS LEG BUT DENIES PAIN WHEN LEG IS AT REST. LLE IS UP ON PILLOWS. CMS INTACT WITH PEDAL PULSE PALPABLE TO LLE, SKIN IS STILL WARM WITH SOME BRISING NOTED TO BOTTOM OF FOOT AND ANKLE AREA.
--- NOTE | 2023-07-16 06:00 | NUR ---
MIGUEL LYLES HAS BEEN TURNED OFF FOR NOW, ANTICIPATE GIVING AM LOPRESSOR.
[2023-07-16 06:22] LABS: BANDS, MANUAL DIFF 2; BASOPHILS, MANUAL DIFF 1; LYMPHOCYTES, MANUAL DIFF 17; MONOCYTES, MANUAL DIFF 11; NEUTROPHILS, MANUAL DIFF 69
[2023-07-16 07:35] LABS: ABO O; RH POSITIVE
--- NOTE | 2023-07-16 08:05 | NUR ---
ASSESSMENT COMPLETE. PT AWAKE AND ALERT. EATING CLEAR LIQUID TRAY, TOLERATING WELL, REPORTS NO NAUSEA. LEFT LEG ELEVATED ON 4 PILLOWS AND WITH BED. PT REPORTS 7/10 PAIN IN LEFT LEG. PRN MEDICATION ADMINISTERED. DRESSING WITH OLD SANGUINEOUS DRAINAGE. TASHA WITH SCANT SANGUINEOUS DRAINAGE. DOPPLER PULSES STRONG TO LLE. BRUISING NOTED TO BILTERAL SIDES OF HEEL. PT A&O X4, CIWA 4, MILDLY SWEATING AND TREMORS. PT DENIES FURTHER NEEDS AT THIS TIME. CALL LIGHT IN REACH.
--- NOTE | 2023-07-16 08:07 | NUR ---
VITALS CHARTED, PATIENT RESTING IN BED WITH BREAKFAST TRAY IN FRONT. RN AT BEDSIDE. RN AWARE OF 99.3 TEMP. CALL LIGHT IN EASY REACH
--- NOTE | 2023-07-16 09:20 | NUR ---
DR GARCIA IN ROOM, TOOK DRESSING DOWN. VERBAL ORDER TO REPLACED WITH WET GAUZE, KERLIX AND SARA WRAP. PT TOLERATED WELL. PT STATES PAIN IS 3/10 AND TOLERABLE AT THIS TIME. IN ROOM. PARTIAL LINEN CHANGE. PT DENIES FURTHER NEEDS AT THIS TIME. CALL LIGHT IN REACH.
--- NOTE | 2023-07-16 10:47 | NUR ---
PT SITTING AWAKE IN BED. STATES PAIN IS TOLERABLE AT THIS TIME 10/24. LLE REMAINS ELEVATED ON 3 PILLOWS AND WITH BED ABOVE LEVEL OF HEART. DRESSING CDI AT THIS TIME. PALPABLE PEDAL PULSE TO LLE. PT DENIES FURTHER NEEDS AT THIS TIME. CALL LIGHT IN REACH.
--- NOTE | 2023-07-16 11:52 | NUR ---
DRESSING TO LATERAL LEFT LEG SATURATED WITH SANGUINEOUS DRAINAGE. ATTEMPTED DRESSING CHAGE, WET GAUZE DIFFICULT TO REMOVE, ADHERE TO SUTURES/WOUND. DID NOT REMOVE AT THIS TIME. ATTEMPTED CALL TO DR GARCIA TO INFORM OF BLEEDING, NO ANSWER. LEFT MESSAGE WITH OR CHARGE FOR DR GARCIA TO CALL.
[2023-07-16 12:14] LABS: BASOPHILS 0.2 % (0-2); HEMATOCRIT 22.7 % (35.0-50.0); HEMOGLOBIN 7.9 g/dL (12.0-18.0); LYMPHOCYTES 9.8 % (24-44); MCH 32.9 (27-36); MCHC 34.9 g/dl (30-36); MCV 94.2 fl (81-99); MONOCYTES 14.4 % (0-12); NEUTROPHILS 75.6 % (39-80); PLATELET COUNT 119 K/uL (140-440); RBC 2.41 M/ul (4.3-5.7); RDW 16.6 (10.5-15.0)
--- NOTE | 2023-07-16 12:15 | NUR ---
DR GARCIA CALLED BACK, INFORMED OF BLEEDING TO LATERAL WOUND. VERBAL ORDER TO TAKE DRESSING DOWN AND APPLY QUICK CLOT DRESSING. ASKED DR GARCIA IS HE WOULD STILL LIKE ORDERED LOVENOX GIVEN, ORDER TO REDUCE TO ONCE DAILY ADMINISTRATION OF 40MG. ALSO ASKED IF HE WOULD LIKE TO WAIT FOR 1200 LAB DRAW BEFORE ADMINISTRATION, DR GARCIA REPLY NO, GIVE LOVENOX.
--- NOTE | 2023-07-16 12:36 | NUR ---
UR NOTE MCG MUSCULOSKELETAL SURGERY OR PROCEDURE (GRG) 07/15/23 MET CLINICAL INDICATIONS FOR PROCEDURE FASCIOTOMY STAGE 1
--- NOTE | 2023-07-16 12:47 | NUR ---
DRESSING REMOVED, QUICK CLOT DRESSING APPLIED WITH ASSISTANCE OF LOPEZ CHICAS AND LYNETTE CHICAS. ABD AND KERLIX GAUZE APPLIED. PT TOLERATED WELL. DENIES NEEDS AT THIS TIME. CALL LIGHT IN REACH.
--- NOTE | 2023-07-16 12:52 | NUR ---
UR NOTE [facility]CG MUSCULOSKELETAL SURGERY OR PROCEDURE (GRG) INPATIENT 07/16/23 VARIANCE STAGE 2
--- NOTE | 2023-07-16 13:15 | NUR ---
DR PADILLA UPDATED ON 1200 CBC RESULTS, LATERAL LLE WOUND BLEEDING AND ORDER FOR LOVENOX IN REGARDS TO EARLIER DISCUSSION OF RESUMING PT COUMADIN. ORDER PLACED BY DR PADILLA FOR 1700 CBC. NO NEW ORDERS AT THIS TIME.
--- NOTE | 2023-07-16 13:20 | NUR ---
IN TO ADMINISTER LOVENOX, PT VERBALIZED RELUCTANCE IN RECEIVEING MEDICATION. EDUCATED ON MEDICATION AND REASON FOR ORDER. PT CONTINUES TO REFUSE MEDICATION STATING HE WOULD "LIKE TO WAIT UNTIL NEXT BLOOD DRAW THIS EVENING" DENIES FURTHER NEEDS AT THIS TIME. CALL LIGHT IN REACH AND IN ROOM.
--- NOTE | 2023-07-16 13:51 | NUR ---
PT AWAKE AND ALERT, STATES PRN PAIN MEDICATION IMPROVED PAIN TO 3/10, STATES TOLERABLE AT THIS TIME. SANGINEOUS DRAINAGE BEGINNING TO SHOW THROUGH DRESSING ON LATERAL LLE. LLE REMAINS ELEVATED ABOVE LEVEL OF HEART WITH BED AND PILLOWS. PEDAL PULSES PALPABLE TO LLE. URINAL EMPTIED AND FRESH ICE WATER PROVIDED. PT DENIES FURTHER NEEDS AT THIS TIME. CALL LIGHT IN REACH.
--- NOTE | 2023-07-16 15:20 | NUR ---
PARTIAL BED BATH AND LINEN CHANGE COMPLETE. PT TOLERATED WELL. CALL LIGHT IN REACH.
--- NOTE | 2023-07-16 16:55 | NUR ---
PT REPOSITIONED IN BED. LLE ELEAVTED ON PILLOWS AND IN BED. PT TOLERATED WELL. STATES PAIN IS IMPROVED, RATED 2/10. PT IN ROOM. CALL LIGHT IN REACH.
--- NOTE | 2023-07-16 17:00 | NUR ---
PATIENT RESTING IN BED, PERSONAL UNDERWEAR ON WITH ASSISTANCE. CLEAN DRAW SHEET UNDER PATIENT. PATIENT REPOSITIONED FOR COMFORT, LEFT LEG ELEVATED ELEVATED ON THREE PILLOWS. SCD ON RIGHT LEG, CALL LIGHT IN EASY REACH. IN ROOM. URINAL EMPTIED.
[2023-07-16 17:14] LABS: HEMATOCRIT 21.1 % (35.0-50.0); HEMOGLOBIN 7.3 g/dL (12.0-18.0); MCH 32.7 (27-36); MCHC 34.7 g/dl (30-36); MCV 94.4 fl (81-99); PLATELET COUNT 122 K/uL (140-440); RBC 2.24 M/ul (4.3-5.7); RDW 16.5 (10.5-15.0)
[2023-07-16 17:32] LABS: LYMPHOCYTES, MANUAL DIFF 22; MONOCYTES, MANUAL DIFF 1; NEUTROPHILS, MANUAL DIFF 77
--- NOTE | 2023-07-16 18:31 | NUR ---
REPOSITIONED PT IN BED. PT STATES PAIN IS TOLERABLE AT THIS TIME. DENIES NEEDS AT THIS TIME. REQUESTING LIGHTS OFF. CALL LIGHT IN REACH.
--- NOTE | 2023-07-16 18:53 | NUR ---
DISCUSSED CURRENT LABS WITH DR PADILLA. MADE AWARE PT REFUSED LOVENOX, ORDER STILL ACTIVE. NO NEW ORDERS AT THIS TIME.
--- NOTE | 2023-07-16 19:25 | NUR ---
REPORT RECEIVED AND CARE ASSUMED FROM OFFGOING RN. PT VSS VIA CONTINUOUS MONITOR.
--- NOTE | 2023-07-16 20:36 | NUR ---
SHIFT ASSESSMENT COMPLETE. SEE [facility] FOR DETAILS. PT STATES "MY LEG FEELS BETTER TODAY". PT NOTICED LLE EDEMA DECREASED. PT DENIES NEEDS AT THIS TIME. PT ALERT AND ORIENTED, COMMUNICATIVE AND PLEASANT. NO SIGNS OF WD AT THIS TIME. PT VERBALIZES UNDERSTANDING TO USE CALL LIGHT WITH NEEDS. BED IN LOW, LOCKED POSITION. LLE ELEVATED WITH CDI DRSG. VSS NAD NAD NOTED VIA DIRECT OBS, PT STATEMENT AND CONTINUOUS MONITOR.
--- NOTE | 2023-07-16 21:16 | NUR ---
PT ATTEMPT TO GET OUT OF BED. PT STATES HE FELL ASLEEEP AND WOKE UP CONFUSED. PT EASILY REORIENTED. PT REPOSITIONED IN BED. BED ALARM RESET. PT REQUESTED AND PROVIDED ICE WATER. NO OTHER NEEDS STATED. VSS NAD NAD NOTED VIA DIRECT OBS, PT STATEMENT AND CONTINUOUS MONITOR.
[2023-07-16 22:07] LABS: BASOPHILS 0.3 % (0-2); EOSINOPHILS 0.3 % (0-6); HEMATOCRIT 18.7 % (35.0-50.0); HEMOGLOBIN 6.6 g/dL (12.0-18.0); LYMPHOCYTES 13.6 % (24-44); MCH 32.9 (27-36); MCHC 35.1 g/dl (30-36); MCV 93.7 fl (81-99); MONOCYTES 14.3 % (0-12); NEUTROPHILS 71.5 % (39-80); PLATELET COUNT 113 K/uL (140-440); RDW 16.3 (10.5-15.0)
--- NOTE | 2023-07-16 22:15 | NUR ---
PT RESTING IN BED WITH EYES CLOSED. EASILY AWAKENED WHEN STAFF ENTERS ROOM. PT DENIES NEEDS. CALL LIGHT IN REACH. BED IN LOW, LOCKED POSITION, BED ALARM ON. LLE ELEVATED WITH CDI DRSG. VSS NAD NAD NOTED VIA CONTINUOUS MONITOR, DIRECT OBS AND PT STATEMENT.
--- NOTE | 2023-07-16 22:19 | NUR ---
DR PADILLA NOTIFIED OF PT HGB 6.6 AND HCT 18.7. TO ENTER ORDER FOR PRBC INFUSION.
[2023-07-16 23:00] LABS: IS CROSSMATCH COMPATIBLE
[2023-07-17] VITALS (44 sets, daily range): BP systolic 95–155; BP diastolic 53–127
--- NOTE | 2023-07-17 00:43 | NUR ---
SHIFT ASS[facility]PLETE. [facility] PT RESTING IN BED WITH EYES CLOSED. EASILY AWAKENED TO VOICE WHEN STAFF ENTER ROOM. PT INITIALLY CONFUSED UPON AWAKENING. EASILY REORIENTED. PT DENIES ADDITIONAL NEEDS. CALL LIGHT IN REACH. BED IN LOW, LOCKED POSITION WITH BED ALARM ON FOR PT SAFETY. VSS AD NAD NOTED PER PT STATEMENT, DIRECT OBS ABD CONTINUOUS MONITOR.
--- NOTE | 2023-07-17 02:00 | NUR ---
PT CONTINUES TO WAKE UP DISORIENTED. ATTEMPTS TO GET OOB AND PULLS AT LINES. PT EASILY REORIENTED. UPON REORIENTATION PT APOLOGIZES FOR BEING CONFUSED. PT REPOSITIONED. DENIES ADDITIONAL NEEDS. CALL LIGHT AND PERSONAL ITEMS IN REACH. BED IN LOW, LOCKED POSITION WITH BED ALARM ON. VSS AND NAD NOTED VIA DIRECT OBS, CONTINUOUS MONITOR AND PT STATEMENT.
--- NOTE | 2023-07-17 04:11 | NUR ---
SHIFT ASSESSMENT COMPLETE. SEE [facility]. 2U PRBC INFUSED. PT CONTINUES TO WAKE UP CONFUSED. WHEN REORIENTING PT ARGUMENTATIVE. PT ATTEMPTING TO GET OOB AND REMOVE MONITORING EQUIPMENT. PT REORIENTED. UPON CONTINUED REORIENTATION PT DOES COMPLY WITH REQUESTS AND FOLLOW DIRECTIONS. PT CIWA =4. LLE DRSG CDI AND ELEVATED. BED IN LOW, LOCKED POSTION WITH BED ALARM ON. PT VERBALIZES UNDERSTANDING TO USE CALL LIGHT WITH NEEDS. PT APPROPRIATELY USING REMOTE FOR TELEVISION VIEWING. PT DENIES ADDITIONAL NEEDS. VSS AND NAD NOTED VIA DIRECT OBS AND CONTINUOUS MONITOR.
[2023-07-17 05:29] LABS: BASOPHILS 0.2 % (0-2); EOSINOPHILS 0.3 % (0-6); HEMATOCRIT 26.7 % (35.0-50.0); HEMOGLOBIN 9.3 g/dL (12.0-18.0); LYMPHOCYTES 12.2 % (24-44); MCH 32.1 (27-36); MCHC 34.8 g/dl (30-36); MCV 92.2 fl (81-99); MONOCYTES 14.1 % (0-12); NEUTROPHILS 73.2 % (39-80); PLATELET COUNT 103 K/uL (140-440); RDW 16.3 (10.5-15.0)
[2023-07-17 05:46] LABS: BUN/CREATININE RATIO 13.54 (6.0-28.6); CALCIUM 7.6 mg/dL (8.5-10.1); CREATININE, SERUM 0.96 mg/dL (0.70-1.30); PHOSPHORUS, INORGANIC 1.6 mg/dL (2.5-4.9)
[2023-07-17 05:55] LABS: INR 1.56 (0.80-1.30)
--- NOTE | 2023-07-17 06:18 | NUR ---
PT AWAKE, ALERT AND ORIENTED. PT LEFT AC PERIPHERAL IV DRSG CHANGED, PT GOWN AND PILLOW CASES CHANGED. PT APOLOGIZED STATES "I'M SORRY I WAS CRANKY. I WAKE UP CONFUSED SOMETIMES." PT REASSURED. PT DENIES PAIN. PT STATES "I'M GOING TO ASK THE DR IF I CAN JUST GO HOME AND COME BACK FOR TREATMENT." PT EDUCATED TO REASONS FOR NECESSARY IN PATIENT STAY. PT DENIES ADDITIONAL NEEDS AT THIS TIME. CALL LIGHT IN REACH, BED IN LOW, LOCKED POSITION WITH BED ALARM ON. VSS AND NAD NOTED VIA DIRECT OBS AND CONTINUOUS MONITOR.
--- NOTE | 2023-07-17 07:30 | NUR ---
REPORT RECEIVED FROM ANTHONY CHICAS AND CARE ASSUMED OF PT.
--- NOTE | 2023-07-17 07:45 | NUR ---
PT AWAKE AND SITTING UP IN BED, HE IS ADAMANT THAT HE IS GOING HOME THIS MORNING, UX ENGINEER AND THIS RN ATTEMPTING TO REASSURE PT AND EXPLAIN PLAN OF CARE TO PT REGARDING HIS MEDICAL NEEDS, PT INSISTING ON GOING HOME AND IS TRYING TO GET OUT OF BED TO GET HIS CLOTHES ON. HE IS ABLE TO ANWER THAT HE IS IN [facility] IN [place], BUT IS VERY CONFUSED TO SITUATION AND THOUGHTS ARE NOT TRACKING PROPERLY. HE CALLED HIS TO ASK HER TO COME GET HIM, HE THEN LET THIS RN TALK TO HER TO EXPLAIN SITUATION AND SHE STATES SHE WILL BE IN TO HELP CALM PT. THIS RN AND UX ENGINEER REPOSITIONED PT UP IN BED WITH LLE SEVERAL TIMES AND PT CONTINUED TO TRY TO GET HIMSELF UP OUT OF BED. DURING THIS TIME SARA WRAP TO LLE BECAME MORE AND MORE SATURATED EXPECIALLY ON THE POSTERIOR/MEDIAL SIDE WITH FLUID AND SOME BLOOD. ASSESSMENT WAS DONE, GOOD CMS TO LLE WITH PALPABLE PEDAL PULSES. HR IS SR IN THE 90'S, PT ON ROOM AIR. PT DENIES PAIN TO HIS LEG ALTHOUGH AT TIMES HE DOES SHOW SOME PHYSICAL SIGNS OF PAIN. PT REMAINS AGITATED AND IRRITATED AT STAFF FOR KEEPING HIM HERE AND CONTINUALLY IS TRYING TO GET UP OUT OF BED TO WALK OUT OF HERE. PLAN TO DO CIWA SCORE AND GIVE ATIVAN PRN.
--- NOTE | 2023-07-17 08:00 | NUR ---
PATIENT RESTLESS AND CONTINUES TO TRY AND CLIMB OUT OF BED TO "LEAVE." PATIENT STATES HE HAS "BUSINESS TO TAKE CARE OF" AND STATES HE WILL CHECK BACK IN LATER TO DAY. THIS BUSINESS ASSISTANT AND RN BEREKET ABLE TO REDIRECT AFTER SEVERAL MINUTES, HOWVER THIS LASTS ONLY A FEW MINUTES BEFORE PATIENT BECOMES RESTLESS AGAIN, ADAMENT TO LEAVE. LINEN CHANGED, BEDBATH PROVIDED. PATIENT HAS SOAKED THROUGH DRESSING ON LLE. PATIENT PLACED ON NEDPAN FOR BM. DARK TARRY STOOL NOTED, RN AND MD AWARE. CALL LIGHT AND PERSONAL ITEMS IN EASY REACH.
--- NOTE | 2023-07-17 09:57 | NUR ---
CCU ROUNDS. UNABLE TO VISIT PT. CARE TEAM IN ROOM. PROVIDED PRAYER.
--- NOTE | 2023-07-17 10:18 | NUR ---
PT CONT TO HAVE INCREASINGLY SEVERE TREMORS, CALL TO MD, ORDER GIVEN FOR PHENOBARBITOL. IN AT BEDSIDE ATTEMPTING TO CALM PT.
--- NOTE | 2023-07-17 10:58 | NUR ---
PT RESPONDED TO PHENOBARBITOL FAIRLY QUICKLY, SETTLED DOWN AND WENT TO SLEEP, SOME OCCASIONAL SNORING NOTED WITH SPO2 DROPPING DOWN TO 70'S, OXYGEN APPLIED, OXYMASK AT 4L/O2 WITH SATS NOW RANGING FROM 96-100%.
--- NOTE | 2023-07-17 11:41 | NUR ---
PT WITH HR 150-170, AVIVA ALEXANDER NOTIFIED DR. PADILLA, VERBAL ORDER FOR NS 1000 BOLUS AND IV METOPROLOL 15MG AT 5 MG INTERVALS. BOLUS STARTED AND 5MG GIVEN, PROVIDER AT BEDSIDE. NEW ORDER FOR EKG, RT AT BEDSIDE.
[2023-07-17 12:12] LABS: BASE EXCESS, BLOOD GAS 2.8 mmol/L (-2-2); HCO3, BLOOD GAS 27.7 mmol/L (22-26); PCO2, BLOOD GAS 42.8 mmHg (35-45); PH, BLOOD GAS 7.42 (7.35-7.45); PO2, BLOOD GAS 104 mmHg (80-100)
[2023-07-17 12:13] LABS: O2 SATURATION, BLOOD GAS 99.6 % (95.0-100.0); OXYGEN RECEIVED, BLOOD GAS 4 L
--- NOTE | 2023-07-17 12:47 | NUR ---
PT WENT INTO AFIB AT 1122 WITH RATE 170'S. RN IN TO CHECK ON HIM, HE WAS RESTFUL/SLEEPING WITH SITTER AT THE BEDSIDE REPORTING PT HAS BEEN CALM. MD NOTIFIED AND INTO BEDSIDE TO ASSESS PT, RT IN TO DO EKG. PT WAS GIVEN 5MG IV LOPRESSOR AT 1140 WITH ONLY SMALL DECREASE IN HR-DOWN TO 150'S, 15MG CARDIZEM IVP WAS GIVEN AT 1147 WITH HR THEN TRENDING SLOWLY DOWN TO 120-140'S. CARDIZEM DRIP STARTED AT 2.5 AND HAS BEEN TITRATED UP. PT OVERALL REMAINED SLEEPING BUT WAS RESPONSIVE TO STIMULI, CONTINUES TO HAVE TREMORS WHILE SLEEPING, MORE SEVERE WHILE AWAKE. PT NO LONGER ATTEMPTING TO CLIMB OUT OF BED AND LLE REMAINS ELEVATED ABOVE THE HEART.
--- NOTE | 2023-07-17 13:16 | NUR ---
IV SITE IN RIGHT AC WAS INFILTRATED FROM IVF BOLUS, CATHETER REMOVED WITH TIP INTACT. NEW IV SITES X2 PLACED IN LEFT FOREARM. IV SITE VERY LEAKY IN LEFT AC ALTHOUGH IT DOES HAVE GOOD BLOOD RETURN-THAT IV WAS REMOVED WELL. PT WAS AWAKE DURING THIS TIME, SOMEWHAT AGITATED AND COMBATIVE, TREMORS CONT, PT IS SWEATY AND VERY WARM TO THE TOUCH. HR 130'S AFIB, CARDIZEM DRIP TITRATED UP TO 7.5MG/HR. PT CONT ON OXYGEN 4L/OXYMASK WITH SPO2 100%, ETCO2 HIGH IN 50-60'S.
--- NOTE | 2023-07-17 14:00 | NUR ---
MARTINEZ CATHETER PLACED BY PRODUCE MANAGER PER DR PADILLA ORDER
--- NOTE | 2023-07-17 14:00 | NUR ---
UR NOTE [facility] MUSCULOSKELETAL SURGERY OR PROCEDURE (GRG) INPATIENT 07/17/23 VARIANCE STAGE 2
[2023-07-17 14:25] LABS: BASOPHILS 1.2 % (0-2); EOSINOPHILS 0.7 % (0-6); HEMATOCRIT 24.6 % (35.0-50.0); HEMOGLOBIN 8.4 g/dL (12.0-18.0); LYMPHOCYTES 10.7 % (24-44); MCHC 34.1 g/dl (30-36); MCV 93.7 fl (81-99); NEUTROPHILS 77.4 % (39-80); PLATELET COUNT 110 K/uL (140-440); RBC 2.63 M/ul (4.3-5.7); RDW 16.2 (10.5-15.0)
--- NOTE | 2023-07-17 14:58 | OR ---
[facility] [address] [place], [place] [address] Signed DATE OF OPERATION: 07/15/2023 SURGEON: Nuria Garcia MD PREOPERATIVE DIAGNOSES: 1. Left lower leg compartment syndrome (Daryl superficial posterior compartment greater than 36 mmHg). 2. Chronic anticoagulation with excessive anticoagulation (INR 18, now 2.13). 3. Chronic alcoholism. 4. Anemia and history of contusion of left leg. 5. Left popliteal deep venous thrombosis. POSTOPERATIVE DIAGNOSES: 1. Left lower leg compartment syndrome, superficial posterior compartment. 2. Intramuscular hematoma, left gastrocnemius accounting for compartment syndrome. 3. Normal-appearing deep posterior and lateral and anterior compartments. PROCEDURES: 1. Exam under anesthesia. 2. Four-compartment fasciotomy left lower leg including medial incision, lateral incision (superficial posterior, deep posterior, anterolateral and lateral compartment decompression. 3. Evacuation of intramuscular hematoma, gastrocnemius left side. ANESTHESIA: General LMA, Naz Crandall CRNA. DRAIN: 7 mm Bertrand. ESTIMATED BLOOD LOSS: 150 mL in total. INDICATION: This 77-year-old white man has chronic alcoholism, although he is relatively high functioning otherwise. He is chronically anticoagulated with Coumadin for chronic paroxysmal atrial fibrillation. His primary provider is SHAWN Lucas. He presented at about midnight to the emergency room where he was evaluated for recent ground level fall and progressive left lower calf swelling, edema and bruising. He does Electronically Signed By: NURIA GARCIA MD 07/17/23 1458 PATIENT NAME: ADRIENNE LANDRUM OPERATIVE REPORT DATE OF : 45 REPORT #: [id number] PHYSICIAN: NURIA GARCIA MD PCP: LEONORA LANDRUM NP REPORT IS CONFIDENTIAL AND NOT TO BE RELEASED WITHOUT AUTHORIZATION [facility] [address] [place], [place] [address] Signed not admit to a fall causing his left leg problem. He has been able to walk on it, increasingly more uncomfortable for him. Evaluation in the emergency room by Dr. Bettina Arambula included a CT scan of the head and neck showing no sign of intracranial hematoma or bleeding and a duplex ultrasound of the left leg showing a deep venous thrombosis of the popliteal vein. He was noted to have exquisite tenderness of the calf muscles, edema and evolving ecchymosis. His INR was found to be elevated at 18. He was admitted by Dr. Perez Cavazos, underwent anticoagulation reversal (largely) with a resultant INR of 2.14, using only vitamin K for reversal. I was consulted this morning about this and he was found to have clinical findings highly suggestive of compartment syndrome as suspected by Dr. Cavazos. This include exquisite tenderness of the calf and extreme tenderness on and plantar flexion. A 3ROAM pressure catheter was used confirming a posterior compartment pressure of the calf at 36 (normal less than 25). The lateral compartment was normal with a pressure of approximately 6. I have recommended to the patient and his immediate decompression of the compartment syndrome, which may likely include four compartment decompression. The special risks of bleeding, infection, progression of deep venous thrombosis already identified. Failure to cure the problem, and other unforeseen complications including nerve injury were all reviewed in detail. They understand and wished to proceed. FINDINGS: A fair amount of edema of the subcutaneous tissue was noted. Medial fasciotomy was undertaken 1st showing extreme ecchymosis and firmness of the posterior muscle compartment. Fasciotomy of this area allowed muscle to bulge through the confines of the fascia. Within the parenchyma of the gastrocnemius was a hematoma which was additionally evacuated. There was no sign of ongoing active bleeding particularly, however. Complete decompression of the superficial posterior compartment was accomplished. Additionally, the deep posterior compartment was decompressed, which showed normal muscle. No sign of hemorrhage, inflammation, or significant swelling. The lateral and anterolateral compartments were decompressed through the lateral incision as well. Those areas appeared to be uninvolved by compartment syndrome so far as could be told. A drain was placed in the parenchyma of the left gastrocnemius on the high probability of oozing of old blood. In aggregate approximately 150 mL of blood was lost. DESCRIPTION OF PROCEDURE: The patient was brought to the operating room, given a general LMA type anesthetic. Electronically Signed By: NURIA GARCIA MD 07/17/23 1458 PATIENT NAME: ADRIENNE LANDRUM RYAN OPERATIVE REPORT DATE OF : 45 REPORT #: [id number] PHYSICIAN: NURIA GARCIA MD PCP: LEONORA LANDRUM NP REPORT IS CONFIDENTIAL AND NOT TO BE RELEASED WITHOUT AUTHORIZATION [address] [address] Signed Special care was taken given his extremely poor dentition. Protective devices were used during the course of intubation to protect the teeth tenuously they were in place. Preoperative antibiotic Ancef was given. Sequential compression device stocking was used on the right leg. The left leg was then examined more fully and prepared with a chlorhexidine solution and draped sterilely. The foot was isolated and separately draped. The left tibia was identified through the edematous soft tissue and its course was marked with a pen. Medial and posterior to this, an incision was made in the skin extending inferiorly towards the ankle a few cm from the tibial bone. Meticulous care was taken in dissecting through the subcutaneous tissue. It was noted to be quite edematous and with venous oozing as might be expected. Once hemostasis was assured, the underlying fascia was well identified, showing very tense muscle compartment predominantly the gastrocnemius (posterior superficial compartment). The fascia overlying this was incised with electrocautery and the muscle was noted to be intensely violaceous and bulging. The fasciotomy was extended cephalad and inferiorly. Notably, the superficial cutaneous nerve in the inferior aspect was identified and preserved (this allowed for impressive decompression of the posterior superficial compartment). Dissection laterally and posteriorly identified what likely represented intramuscular hematoma. Incision in the muscle did identify hematoma. The hematoma was evacuated and the area was copiously irrigated and electrocautery used for hemostasis. The wound was then packed with plain gauze in all areas. Uncertain as to whether a deep compartment syndrome existed. The decompression of the deep posterior compartment was deemed advisable. Staying close to the tibial bone laterally, an incision was made freeing the muscle and ultimately encountering the fascial layer itself. This was incised superiorly and inferiorly with all due care revealing muscle that appeared uninvolved by compartment syndrome, hematoma or other problem. This was extended proximally and distally as far as it is considered safe. This too was packed with laparotomy pack. Attention was turned towards the lateral lower leg. The fibular head was identified and marked and the area for lateral compartment release identified. An incision was made longitudinally with a 15 blade and the incision extended through the subcutaneous tissue which was edematous and with fair amount of venous oozing with electrocautery. The fascia was ultimately identified and incised longitudinally revealing the anterior compartment. This compartment appeared to be uninvolved by compartment syndrome from clinical appearance. The fascial layer was elevated and the septum between the anterior and lateral compartments identified and this compartment was incised again revealing the lateral compartment to be uninvolved by likely compartment syndrome. Full extension of the fasciotomy was undertaken as would be appropriate. Electrocautery was additionally used for hemostasis. The wound was then packed with gauze. Reinspection of the medial aspect of the leg showed reasonably good hemostasis considering his semi-anticoagulated state. Any large venous oozing or arterial bleeding was secured with electrocautery. Through a separate stab incision in the popliteal space, a 7 mm flat Bertrand drain was Electronically Signed By: NURIA GARCIA MD 07/17/23 1458 PATIENT NAME: ADRIENNE LANDRUM OPERATIVE REPORT DATE OF : 45 REPORT #: [id number] PHYSICIAN: NURIA GARCIA MD PCP: LEONORA LANDRUM NP REPORT IS CONFIDENTIAL AND NOT TO BE RELEASED WITHOUT AUTHORIZATION [address] [address] Signed insinuated into the parenchymal defect area of the gastrocnemius where hematoma had been evacuated. Using aerosolized fibrin glue (Tisseel) the wound was additionally covered so as to maintain hemostasis. The closure of the wound was with a dynamic tension system using the yellow vessel loop and a stapling device in a "corset closure." Inspection in the lateral leg showed no sign of ongoing bleeding or other problems. It too was closed in a similar way with dynamic tension. Moist saline gauze was applied to each open wound. The wounds were then wrapped with Kerlix and ultimately an Martin wrap. The patient was ultimately extubated and transferred to recovery room in good condition having suffered no complication. Sponge, needle, and instrument counts were reported as correct x3. MD LUTHER Celis/BLANCHEL /[id number] cc: SHAWN Lucas MD Kelly Pridgen, MD Copies: ~ Electronically Signed By: NURIA GARCIA MD 07/17/23 1458 PATIENT NAME: ADRIENNE LANDRUM OPERATIVE REPORT DATE OF : 45 REPORT #: [id number] PHYSICIAN: NURIA GARCIA MD PCP: LEONORA LANDRUM NP REPORT IS CONFIDENTIAL AND NOT TO BE RELEASED WITHOUT AUTHORIZATION
--- NOTE | 2023-07-17 14:58 | OR ---
[facility] [address] [place], [place] [address] Signed DATE OF OPERATION: 07/15/2023 SURGEON: Nuria Garcia MD PREOPERATIVE DIAGNOSIS: Suspicion of left lower leg compartment syndrome. POSTOPERATIVE DIAGNOSES: Compartment syndrome, left posterior compartment. No evidence of left lateral compartment, hypertension. PROCEDURE: Percutaneous Daryl compartment pressure measurement. ANESTHESIA: 1% lidocaine. DESCRIPTION OF PROCEDURE: In the supine position, the left leg medially and laterally was prepared with Betadine solution. A 1% lidocaine was injected beneath the skin. A small incision was made with an 11 blade. Using a Daryl kit per solar applications development engineer instructions, puncture of the left posterior compartment was undertaken showing a peak pressure of 36 mmHg. The device was removed and flushed and on the left side with similar technique pressure was obtained. This pressure was between 6 and 9 mmHg. Band-Aids were applied to each puncture site. CONCLUDING DIAGNOSIS: Compartment syndrome, likely posterior compartment, left lower leg. PLAN: We will anticipate fasciotomy of the left leg promptly. MD LUTHER Celis/BLANCHEL /[id number] Electronically Signed By: NURIA GARCIA MD 07/17/23 1458 PATIENT NAME: ADRIENNE LANDRUM OPERATIVE REPORT DATE OF : 45 REPORT #: [id number] PHYSICIAN: NURIA GARCIA MD PCP: LEONORA LANDRUM NP REPORT IS CONFIDENTIAL AND NOT TO BE RELEASED WITHOUT AUTHORIZATION [place] [address] [place] [address] Signed cc: MD Dr. Perez Palmer Copies: TOMMY BARBOSA MD ~ Electronically Signed By: NURIA GARCIA MD 07/17/23 1458 PATIENT NAME: ADRIENNE LANDRUM OPERATIVE REPORT DATE OF : 45 REPORT #: [id number] PHYSICIAN: NURIA GARCIA MD PCP: LEONORA LANDRUM NP REPORT IS CONFIDENTIAL AND NOT TO BE RELEASED WITHOUT AUTHORIZATION
--- NOTE | 2023-07-17 14:58 | CONS ---
[facility] [address] [place], [place] [address] Signed DATE OF CONSULTATION: 07/15/2023 REQUESTING PHYSICIAN: Dr. Cavazos. PROBLEM: Left lower extremity swelling, ecchymosis and tenderness. Concerns for compartment syndrome. HISTORY OF PRESENT ILLNESS: This 77-year-old white man is an [employer] . He is chronically anticoagulated with Coumadin for atrial fibrillation. He presented to the emergency room at approximately midnight last night and evaluated by Dr. Tommy Barbosa, having had increasing pain in the left lower extremity with ecchymosis and edema and increasing pain on ambulation. Additionally, he had a ground level fall with scrapes on the top of his head and some small amount of bleeding. Evaluation in the emergency room include a protime and INR, which was quite markedly abnormal with his INR at 18. On that basis, a CT scan of the head and neck was performed which showed only a scalp hematoma of the right frontal convexity, but no sign of intracranial injury. He was noted to have marked tenderness of the left calf with ecchymosis and swelling and an ultrasound was performed which showed "probable deep venous thrombosis in the popliteal vein and peroneal veins" of the calf. I was called this morning by Dr. Cavazos with concerns regarding possible compartment syndrome given his tenderness, swelling and firmness of the calf for consideration of compartment syndrome. PAST MEDICAL HISTORY: Said to be notable for chronic alcoholism. MEDICATIONS: Include: 1. Coumadin. 2. Magnesium chloride. 3. Metoprolol. 4. Lisinopril. 5. Simvastatin. 6. Vitamin D3. 7. B complex vitamin supplement. LABORATORY STUDIES: At presentation show an elevated creatinine of 1.29. Electrolytes and liver enzymes are Electronically Signed By: NURIA GARCIA MD 07/17/23 1458 PATIENT NAME: ADRIENNE RODRIGUEZ CONSULTATION DATE OF : 45 REPORT #: [id number] PHYSICIAN: NURIA GARCIA MD PCP: KAY RODRIGUEZ NP REPORT IS CONFIDENTIAL AND NOT TO BE RELEASED WITHOUT AUTHORIZATION [facility] [address] [place], [place] [address] Signed normal. Troponin was 12.8, which was normal. His white count was 7.7, hematocrit 24.7, platelets 131,000. He was admitted by Dr. Cavazos and I was called this morning for consultation regarding the aforementioned problem. Lab studies were repeated this morning after administration of vitamin K. This shows his protime to be markedly improved to 24.5 with an INR of 2.32. His indication for Coumadin is chronic atrial fibrillation, though at the moment I see normal sinus rhythm. He likely has paroxysmal atrial fibrillation as the indication for anticoagulation. REVIEW OF SYSTEMS: He denies any shortness of breath or chest pain. He has significant pain in the left lower extremity above the knee and swelling. The patient does note that he has been "walking on it a lot" hoping to improve though it has only worsened the symptoms. His right leg is generally weak but far better now than previously. I do not see that he has undergone COVID testing. Notably, his alcohol level was 257 at admission. SOCIAL HISTORY: The patient is an [employer] . He is . His (Enzo, phone number is [phone]). His primary provider is Kay Rodriguez, SQL REPORT ANALYST. PHYSICAL EXAMINATION: GENERAL: This is an elderly white man who is alert and oriented. On his scalp, there is an abrasion with caked blood. I did not see a deep laceration at this time, though blood obscures much of the exam. VITAL SIGNS: Weight is 101.6 kg, BMI is 31.2. NECK: Trachea is midline. He has no neck tenderness. He is alert and oriented. HEENT: Pupils equal, round, reactive to light. CHEST: Shows normal respiratory excursion. There is no tachypnea. HEART: Regular on palpation and monitor shows at this time normal sinus rhythm. ABDOMEN: Soft. Easily palpated. There is no tenderness or mass. He has no ascites. EXTREMITIES: Right lower extremity is entirely normal. It is warm without swelling and no tenderness. The left lower extremity has significant ecchymosis and resolving probable hematoma or subcutaneous blood extending above the knee. The left calf is markedly tender to palpation. The lateral compartment is tender as well. Passive dorsiflexion and extension show marked tenderness. His Doppler evaluation does show preserved dorsalis pedis flow. ASSESSMENT: The patient has clinical findings highly suggestive of compartment syndrome. He may have had intramuscular bleeding related to excessive anticoagulation. It is unusual Electronically Signed By: NURIA GARCIA MD 07/17/23 1458 PATIENT NAME: ADRIENNE RODRIGUEZ RYAN CONSULTATION DATE OF : 45 REPORT #: [id number] PHYSICIAN: NURIA GARCIA MD PCP: KAY RODRIGUEZ NP REPORT IS CONFIDENTIAL AND NOT TO BE RELEASED WITHOUT AUTHORIZATION [address] [address] Signed that vitamin K administration would so profoundly improve his INR from greater than 18 to 2.32, but it is certainly possible. The ultrasound finding of popliteal vein thrombosis is notable and problematic but may additionally account for compartment swelling. On the basis of his possibility of compartment syndrome, I did perform a Daryl pressure monitoring of the medial calf and lateral compartment. The medial compartment has an excessive pressure at 36 mmHg (normal should be less than 25 at most). The lateral compartment is between 3 and 6 and normal. On the basis of these findings, we will repeat his protime and INR to assess where he is on anticoagulation. I would advise compartment release certainly medially and posteriorly and laterally as well. The risk of bleeding, infection, cosmetic deformity, variable methods of closure as possibly were also reviewed. The patient has underlying alcoholism for which withdrawal prophylaxis will be ongoing under the direction of Dr. Cavazos. As regard to the anticoagulation for the deep venous thrombosis, it would be a consideration and likely necessary once the compartments are released of excessive pressure so as to avoid muscle and nerve damage. All this was discussed with the patient. I have reviewed the situation with Dr. Cavazos as well. I did attempt to call his , but there is no answer at the phone and she is not presently available. The patient is pondering whether he will proceed with the recommended treatment. For now, he will be kept n.p.o. and monitored closely. MD LUTHER Celis/DEMETRIS /[id number] cc: MD Kay Palmer, SHAWN Cavazos Electronically Signed By: NURIA GARCIA MD 07/17/23 1458 PATIENT NAME: ADRIENNE RODRIGUEZ CONSULTATION DATE OF : 45 REPORT #: [id number] PHYSICIAN: NURIA GARCIA MD PCP: KAY RODRIGUEZ NP REPORT IS CONFIDENTIAL AND NOT TO BE RELEASED WITHOUT AUTHORIZATION [facility] [address] [place] [address] Signed Copies: TOMMY BARBOSA MD ~ Electronically Signed By: NURIA GARCIA MD 07/17/23 1458 PATIENT NAME: ADRIENNE RODRIGUEZ CONSULTATION DATE OF : 45 REPORT #: [id number] PHYSICIAN: NURIA GARCIA MD PCP: KAY RODRIGUEZ NP REPORT IS CONFIDENTIAL AND NOT TO BE RELEASED WITHOUT AUTHORIZATION
--- NOTE | 2023-07-17 15:32 | NUR ---
PT WAS GIVEN PHONBARBITAL 65 MG IV IN 2 DIVIDED DOSES TO ASSESS RESPONSE- BEFORE MED PT WAS RESTLESS AND ATTEMPTING TO GET HIMSELF UP, AFTER MED PT DID RELAX AND SLEEP FOR SHORT PERIODS OF TIME. IT IS NOW APPROX 45 MINUTES AFTER MEDICATION WAS GIVEN AND PT IS AWAKE, PULLING AT MONITOR CORDS AND IV LINES, REMOVING GOWN AND TRYING TO GET HIMSELF UP OUT OF BED, VETERINARY MEDICAL OFFICER IN WITH PT, PT REQUIRING ONE TO ONE CARE AT THIS TIME.
--- NOTE | 2023-07-17 17:15 | NUR ---
PT WAS GIVEN 130MG IV PHENOBARBITAL IN 2 DIVIDED DOSES, FIRST DOSE AT [address] PADILLA ORDER-65MG. ANOTHER 65 MG IV WAS GIVEN FOR CONTINUED AGITATION, RESTLESSNESS PT CONTINUES TO INTERITTENTLY TRY TO CLIMB OUT OF BED, KICKING LEGS IN THE AIR AND NOT KEEPING LLE.
--- NOTE | 2023-07-17 19:03 | NUR ---
DR PADILLA CAME BY TO ROUND ON PTS, UPDATES GIVEN. PT CONT IN AFIB WITH RATE 90'S, CARDIZEM DRIP AT 15MG/HR. PT HAS BEEN OVERALL MORE RESTFUL THE LAST HOUR SINCE PHENOBARBITAL WAS GIVEN. PT REQUIRES OXYGEN AFTER MEDICATION SATS DROP WITH PERIODS OF APNEA, SATS REMAIN HIGH 90'S WITH OXYMASK IN PLACE.
--- NOTE | 2023-07-17 20:00 | NUR ---
REPORT TAKEN FROM PREVIOUS NURSE. BOTH RN AT BEDSIDE. PT IS ATTEMPTING TO CRAWL OUT OF BED, PT IS DISORIENTATED TO PLACE, EVENT, AND YEAR. PT DOES FOLLOW SOME COMMANDS BUT MINIMAL. PT IS HALLUCINATING WELL. PRN MEDICATION PREVIOUSLY GIVEN. CIWA AT 21. RN DID PERFORM INDEPTH NEURO CHECK, WHICH WAS POSITIVE FOR WITHDRAWLS. SENSATION AND MOVEMENT IN ALL EXTRMTIES ARE INTACT. PT BEGAN TO DRIFT OF TO SLEEP SHORTLY. VITAL SIGNS REVIEWED. ALARMS REVIEWED AND CHECKED. BED ALARM IN PLACE. PIV CHECKED. CALL LIGHT WITH IN REACH.
--- NOTE | 2023-07-17 20:21 | NUR ---
Spoke to via phone. Verified dressing on left leg is to be left until morning.
--- NOTE | 2023-07-17 22:00 | NUR ---
PT IS RESTING IN BED. PT DOES OCCASIONALLY REPOSITION SELF. PT IS NOT ALERT AND ORIENTATED TO HIS SURROUNDINGS. BED IS LOCKED IN THE LOWEST POSITION AND BED ALARM IS ON. VITAL SIGNS REVIEWED. PT IS NOT COMPLAINING OF PAIN AT THIS TIME.
[2023-07-17 22:08] LABS: HEMATOCRIT 24.5 % (35.0-50.0); HEMOGLOBIN 8.3 g/dL (12.0-18.0)
[2023-07-17 22:11] LABS: MCV 94.2 fl (81-99); PLATELET COUNT 118 K/uL (140-440)
[2023-07-17 22:45] LABS: BASOPHILS, MANUAL DIFF 2; EOSINOPHILS, MANUAL DIFF 1; LYMPHOCYTES, MANUAL DIFF 12; MONOCYTES, MANUAL DIFF 9; NEUTROPHILS, MANUAL DIFF 76
--- NOTE | 2023-07-17 22:46 | EKG ---
[facility] [address] [facility] [place] [address] Signed Atrial fibrillation with rapid ventricular response with premature ventricular or aberrantly conducted complexes Nonspecific ST and T wave abnormality Abnormal ECG When compared with ECG of 15-JUL-2023 15:24, Vent. rate has increased Confirmed by Milena Padilla MD () on 07/17/2023 10:46:42 PM Electronically Signed By: MILENA PADILLA MD 07/17/23 2246 PATIENT NAME: ADRIENNE LANDRUM Electrocardiogram DATE OF : 45 PHYSICIAN: MILENA PADILLA MD REPORT #: [id number] REPORT IS CONFIDENTIAL AND NOT TO BE RELEASED WITHOUT AUTHORIZATION
[2023-07-18] VITALS (45 sets, daily range): BP systolic 94–143; BP diastolic 55–105
--- NOTE | 2023-07-18 00:30 | NUR ---
PT IS RESTING IN BED. ASSESSMENT PERFORMED, NO SIGNIFICANT CHANGES AT THIS TIME. CIWA ELEVATED AND PT ATTEMPTING TO CRAWL OUT OF BED, UNAWARE OF HIS SURROUNDINGS OR HIS CURRENT SITUATION. PRN MEDICATION GIVEN. PT CAN FOLLOW SIMPLE COMMANDS AT TIMES AND ABLE TO MOVE ALL EXTREMTIES. PT IS REPOSITIONED. VS REVIEWED. IVF STARTED. CALL LIGHT WITH IN REACH. BED IS LOWERED AND LOCKED WITH BED ALARM ON.
--- NOTE | 2023-07-18 02:00 | NUR ---
PT IS RESTING INBED. PT IS REPOSITIONED. WHEN PT IS STIMULATED PT BECOMES AGITATED MORE AWAKE BUT CONFUSED. PT CAN FOLLOW SIMPLE COMMANDS AT TIMES. VITAL SIGNS REVIEWED. BED LOWERED AND LOCKED. BED ALARM ON, CALL LIGHT WITH IN REACH.
--- NOTE | 2023-07-18 04:00 | NUR ---
PT IS RESTING IN BED. VITAL SIGNS REVIEWED. NO SIGNIFICANT ASSESSMENT CHANGES. WITH STIMULATION, PT DOES WAKE AND BECOME AGITATED AND RESTLESS. PT STARTS PICKING AT THINGS IN THE AIR AND ATTEMPTING TO PULL OUT LINES AND TUBES. PT REDIRECTED AND PT FELL BACK TO SLEEP. BED IS LOWERED AND LOCKED. BED ALARM IS ON. CALL LIGHT WITH IN REACH.
[2023-07-18 05:34] LABS: BASOPHILS 0.3 % (0-2); EOSINOPHILS 0.7 % (0-6); HEMATOCRIT 22.9 % (35.0-50.0); HEMOGLOBIN 7.9 g/dL (12.0-18.0); LYMPHOCYTES 10.6 % (24-44); MCH 32.4 (27-36); MCHC 34.3 g/dl (30-36); MCV 94.5 fl (81-99); MONOCYTES 11.2 % (0-12); NEUTROPHILS 77.2 % (39-80); PLATELET COUNT 124 K/uL (140-440); RBC 2.43 M/ul (4.3-5.7); RDW 16.3 (10.5-15.0)
[2023-07-18 05:43] LABS: ANION GAP 7.3 (7-21); BUN/CREATININE RATIO 8.04 (6.0-28.6); CALCIUM 7.1 mg/dL (8.5-10.1); CREATININE, SERUM 0.87 mg/dL (0.70-1.30); POTASSIUM 3.3 mmol/L (3.5-5.1)
[2023-07-18 06:05] LABS: ALBUMIN 2.1 g/dL (3.4-5.0); ALBUMIN/GLOBULIN RATIO 0.75 (1.1-2.4); BILIRUBIN, DIRECT 0.5 mg/dL (0.0-0.2); BILIRUBIN, INDIRECT 0.9 (0.1-0.7); BILIRUBIN, TOTAL 1.4 ng/dL (0.2-1.0); PROTEIN, TOTAL 4.9 g/dL (6.4-8.2)
[2023-07-18 06:09] LABS: ABO O; ANTIBODY SCREEN NEGATIVE; RH POSITIVE
[2023-07-18 06:14] LABS: INR 1.2 (0.80-1.30); PROTIME 14.6 Sec (11.2-14.2)
--- NOTE | 2023-07-18 06:30 | NUR ---
PT RESTING IN THE BED. PT LINEN CHANGED, MINIMAL DRAINAGE FROM LEFT LEG THROUGHOUT THE NIGHT. PT DOES WAKE UP AND IS AGITATED AND HIGHLY RESTLESS AND STILL CONFUSED BUT WILL FOLLOW SIMPLE COMMANDS WITH ALL EXTREMETIES. PT DID FALL BACK TO SLEEP. BED IS LOWERED AND LOCKED WITH BED ALARM ON. CALL LIGHT WITH IN REACH.
--- NOTE | 2023-07-18 07:30 | NUR ---
REPORT RECEIVED FROM SHAHNAZ CHICAS. PT IS RESTING IN BED WITH EYES CLOSED, RESP EVEN AND UNLABORED, APPEARS RESTFUL. HR 90-100'S, AFIB WITH CARDIZEM DRIP INFUSING AT 15MG/HR.
--- NOTE | 2023-07-18 08:05 | NUR ---
IN TO GIVE SODPHOS INFUSION AND DO ASSESSMENT, PT REMAINS SLEEPING DURING ASSESSMENT. OXYMASK IN PLACE 4L WITH SPO2 97%. LLE IS ELEVATED UP ON PILLOWS, SRAA WRAP TO LLE IS CDI WITH GOOD PULSES TO FOOT. MARTINEZ DRAINING DARK YELLOW URINE. BED ALARM IS ON.
--- NOTE | 2023-07-18 09:00 | NUR ---
PT CONT TO REST WITH EYES CLOSED, RESP EVEN AND UNLABORED, HR 80-100'S AFIB, SPO2 98% AND RR 14.
--- NOTE | 2023-07-18 10:15 | NUR ---
PT HAS REMAINED SLEEPING, HAS NOT WOKEN TO TAKE AM PO MEDICATION, AWARE AND CECIL WITH SKIPPING METOPRLOL FOR NOW. CARDIZEM DRIP IS INFUSING AT 15MG/HR, HR 90-100'S.
[2023-07-18 12:57] LABS: BASOPHILS 0.2 % (0-2); EOSINOPHILS 0.6 % (0-6); HEMATOCRIT 28.4 % (35.0-50.0); HEMOGLOBIN 9.5 g/dL (12.0-18.0); LYMPHOCYTES 7.6 % (24-44); MCH 32.1 (27-36); MCHC 33.4 g/dl (30-36); MCV 96.2 fl (81-99); MONOCYTES 8.3 % (0-12); NEUTROPHILS 83.3 % (39-80); PLATELET COUNT 136 K/uL (140-440); RBC 2.96 M/ul (4.3-5.7); RDW 16.2 (10.5-15.0)
--- NOTE | 2023-07-18 14:00 | NUR ---
DR GARCIA IN TO SEE PT. DRESSING TO LLE WAS REMOVED, DR GARCIA TIGHTENED UP BANDS ON BOTH FASCIOTOMY SITES. PT AWOKE EASILY WITH AROUSAL, WAS CALM AND COOPERATIVE. ABLE TO STATE THAT HE WAS IN THE HOSPITAL IN [facility], ALTHOUGH HE IS SOMEWHAT CONFUSED TO SITUATION. HE TOLERATED THE DRESSING CHANGE WITH MINIMAL PAIN. SALINE SOAKED GAUZE WAS PLACED OVER BOTH SITES AND WRAPPED WITH KERLIX AND THEN A CLEAN SARA WRAP AND LLE WAS THEN ELVATED ON PILLOWS WITH PT REPOSITIONED. PT BACK TO SLEEP AFTER THIS. BED ALARM ON.
--- NOTE | 2023-07-18 15:30 | NUR ---
PT RESTING WITH EYES CLOSED, RESP EVEN AND UNLABORED, [id number]% AND HR 90'S AFIB WITH CARDIZEM AT 12.5MG/HR.
--- NOTE | 2023-07-18 16:48 | NUR ---
DR PADILLA AROUND TO ROUND ON UNIT AND LOOK IN AND PT AND HR, NO NEW ORDERS AT THIS TIME.
--- NOTE | 2023-07-18 18:00 | NUR ---
LAB IN TO DRAW PT, PT AWOKE EASILY AND IS CALM AND COOPERATIVE. PT FEELS WARM TO THE TOUCH, TEMP CHECKED IS 100.4 TEMPORAL, 98.6 ORAL AND 100.4 AXILLARY.
[2023-07-18 18:20] LABS: BASOPHILS 0.2 % (0-2); EOSINOPHILS 0.5 % (0-6); HEMATOCRIT 26.8 % (35.0-50.0); LYMPHOCYTES 9.5 % (24-44); MCH 32.3 (27-36); MCHC 33.6 g/dl (30-36); MCV 95.9 fl (81-99); MONOCYTES 10.1 % (0-12); NEUTROPHILS 79.7 % (39-80); PLATELET COUNT 137 K/uL (140-440); RBC 2.79 M/ul (4.3-5.7); RDW 16.6 (10.5-15.0)
--- NOTE | 2023-07-18 18:30 | NUR ---
DR PADILLA CALLED TO UPDATE HIM ON RECENT LAB RESULTS AND TEMP OF 100.4, ORDERS RECEIVED FOR UA, CHEST XRAY AND BLOOD CULTURES. PT AWAKE IN BED USING HIS PHONE.
--- NOTE | 2023-07-18 19:30 | NUR ---
RN RECIEVED REPORT. PT CONDITION REVIEWED AT BEDSIDE. PT ALERT AND ORIENTATED AND IN OVER ALL GOOD SPIRITS. PT IS ASKING FOR A BEER OR A GLASS OF WINE. PT STILL CONFUSED ABOUT EVENTS AND SURROUNDINGS BUT APPROPRIATE. ALL QUESTIONS AND CONCERNS ADDRESSED AT THIS TIME. PT DENIES PAIN. CALL LIGHT WITH IN REACH AND BED IS LOCKED WITH BED ALARM SET.
[2023-07-18 19:50] LABS: BILIRUBIN, URINE NEGATIVE (negative); BLOOD/HGB, URINE TRACE-I (Negative); KETONE, URINE NEGATIVE (Negative); LEUK ESTERASE, URINE NEGATIVE (negative); NITRITE, URINE NEGATIVE (negative); PH, URINE 7.5 (5-7)
[2023-07-18 19:57] LABS: EPITHELIAL CELLS, URINE SQUAMOUS 1+ /lpf (0-1+)
[2023-07-18 19:58] LABS: BACTERIA, URINE RARE /hpf (negative); REFLEX CULTURE, URINE Yes (No)
--- NOTE | 2023-07-18 22:15 | NUR ---
PT IS RESTING IN BED. CHEST X-RAY OBTAINED AROUND 2100. PT REPOSITIONED AT THIS TIME. IV ANTIBIOTICS STARTED. PT IS ALERT AND PLEASENT. CALL LIGHT IS WITH INREACH, PT CALLS APPROPRIATLY. PT DENIES ANY PAIN AT THIS TIME. ALL QUESTIONS AND CONCERNS ADDRESSED. BED IS LOWERED AND LOCKED. BED ALARM IS SET.
[2023-07-19] VITALS (28 sets, daily range): BP systolic 15–137; BP diastolic 50–78
--- NOTE | 2023-07-19 | NUR ---
PT IS REPOSITIONED. PT IS ALERT AND AWAKE, HE IS AWARE OF HIS SURROUNDINGS AND HAS INCREASING UNDERSTANDING TO HIS SITUATION AND PLAN OF CARE. PT DOES CONTINUE TO ASK FOR BEER. PT DENIES ANY PAIN AT THIS TIME. VS ARE REVIEWED. MINIMAL CHANGES TO HIS OVERALL ASSESSMENT. CALL LIGHT IS WITH IN REACH AND PT USES IT APPROPRIATLY. BED IS LOWERED AND LOCKED. BED ALARM IS SET.
--- NOTE | 2023-07-19 02:00 | NUR ---
PT IS REPOSITIONED. PT IS NOT IN NEED OF ANYTHING AT THIS TIME. PT DENIES PAIN. ALL QUESTIONS AND CONCERNS ARE ADDRESSED. CALL LIGHT IS WITHIN REACH. BED IS LOCKED AND LOWERED. BED ALARM IS SET.
--- NOTE | 2023-07-19 03:55 | NUR ---
PT IS RESTING IN BED. PT REPOSITIONED. VS ARE REVIEWED. NO SIGNIFICANT CHANGES IN PT ASSESSMENT. PT IS ALERT AND ORIENTATED AND COOPERATIVE. PT DENIES ANY PAIN. CALL LIGHT WITH IN REACH. BED IS LOWERED AND LOCKED. BED ALARM ON. ALL QUESTIONS AND CONCERNS ADDRESSED.
[2023-07-19 05:23] LABS: BASOPHILS 0.2 % (0-2); EOSINOPHILS 0.6 % (0-6); HEMATOCRIT 25.9 % (35.0-50.0); HEMOGLOBIN 8.9 g/dL (12.0-18.0); LYMPHOCYTES 8.6 % (24-44); MCH 32.7 (27-36); MCHC 34.5 g/dl (30-36); MCV 94.9 fl (81-99); MONOCYTES 10.3 % (0-12); NEUTROPHILS 80.3 % (39-80); PLATELET COUNT 147 K/uL (140-440); RBC 2.73 M/ul (4.3-5.7)
[2023-07-19 05:28] LABS: INR 1.2 (0.80-1.30); PROTIME 14.6 Sec (11.2-14.2)
[2023-07-19 05:31] LABS: ANION GAP 10.3 (7-21); BUN/CREATININE RATIO 7.77 (6.0-28.6); CALCIUM 7.6 mg/dL (8.5-10.1); CREATININE, SERUM 0.9 mg/dL (0.70-1.30); POTASSIUM 3.3 mmol/L (3.5-5.1)
--- NOTE | 2023-07-19 06:45 | NUR ---
PT REPOSITIONED IN BED. PT AWAKE AND ALERT. PT IS UP FOR THE DAY AND HAS AN INCREASED HEART RATE, CARDIZEM INCREASED TO 15MG/HR. PT LEFT WRIST IV LEAKING, RN REMOVED AND PLACED NEW PIV IN LEFT AC. PT ALSO COMPLAINED OF HEADACHE, PRN TYLENOL GIVEN. ALL QUESTIONS AND CONCERNS ADDRESSED AT THIS TIME. CALL LIGHT WITH IN REACH. BED LOWERED AND LOCKED. BED ALARM IS ON.
--- NOTE | 2023-07-19 08:08 | NUR ---
HR 110-120'S AFIB, CARDIZEM DRIP TUNRED UP TO 17.5MG. TRIED PT ON ROOM AIR, 88-90% SITTING BACK IN BED, PLACED PT BACK ON 2L/O2.
--- NOTE | 2023-07-19 11:20 | NUR ---
PT UP TO BSC FOR BOWEL MOVMENT, BED BATH AND LINEN CHANGE. 2PA WITH WALKER, PT WAS FAIRLY WEEK ON RIGHT LEG, MINIMAL WEIGHT ON LEFT LEG. PT BACK TO BED WITH LLE ELEVATED. STOOL WAS HEME TESTED AND WAS POSITIVE IN ONE SECTION, NEGATIVE IN THE SECOND SECTION. HR DID GET UP TO 120'S WHILE UP THEN WENT DOWN TO 90'S ONCE IN BED, CONTINUES IN AFIB. PT LAID BACK TO GO TO SLEEP, OXYGEN WAS 90% ON ROOM AIR SO O2/2L/NC PLACED AND SATS UP TO 94%.
--- NOTE | 2023-07-19 12:57 | NUR ---
DR GARCIA AND DR PADILLA IN TO SEE PT, DRESSING CHANGE DONE, WET GAUZE APPLIED TO BOTH SITES ON LL AND WRAPPED IN KERLEX AND SARA.
[2023-07-19 18:34] LABS: BASOPHILS 0.3 % (0-2); EOSINOPHILS 0.7 % (0-6); HEMOGLOBIN 8.6 g/dL (12.0-18.0); LYMPHOCYTES 8.2 % (24-44); MCHC 34.3 g/dl (30-36); MCV 96.2 fl (81-99); MONOCYTES 13.1 % (0-12); NEUTROPHILS 77.7 % (39-80); PLATELET COUNT 154 K/uL (140-440); RDW 16.1 (10.5-15.0)
--- NOTE | 2023-07-19 20:00 | NUR ---
REPORT RECIEVED. PT IS RESTING IN BED. PT COMPLAINS OF SLIGHT HEADACHE BUT IS HEADED BACK TO SLEEP. PT DOES HAVE A SLIGHT MEMORY PROBLEM, WE DID HAVE THE SAME CONVERSATION FOR THE SECOND TIME WITHIN THE LAST 24 HRS. OVERALL PT IS ALERT AND ORIENTATED TO PLACE, PERSON, AND TIME. HE DOES NOT FULLY UNDERSTAND HIS SITUATION. VITAL SIGNS WERE REVIEWED. PIV FLUSHED. PT WAS REPOSITIONED. CALL LIGHT WITH IN REACH. BED IS LOWERED AND LOCKED. BED ALARM IS ON.
--- NOTE | 2023-07-19 22:00 | NUR ---
PT IS RESTING IN BED, PT REPOSITIONED. PT DENIES PAIN AT THIS TIME. VS ARE REVIEWED. CALL LIGHT WITH IN REACH. BED IS LOWERED AND LOCKED. TATIANA ALARM SET.
[2023-07-20] VITALS (22 sets, daily range): BP systolic 99–140; BP diastolic 60–86
--- NOTE | 2023-07-20 00:30 | NUR ---
PT IS RESTING IN BED. VITAL SIGNS REVIEWED. PT DOES COMPLAIN OF LEFT LEG PAIN WELL A HEADACHE. PRN MEDICATION GIVEN. PT IS REPOSITIONED. PT IS STILL ALERT AND ORIENTATED TO TIME, PERSON, PLACE. STILL DISORIENTATED TO SITUATION. ALL QUESTIONS AND CONCERNS ADDRESSED. CALL LIGHT WITHIN REACH. BED IS LOWERED AND LOCKED. BED ALARM ON. PT IS NOW NPO, ALL FLUIDS REMOVED FROM PT ROOM.
--- NOTE | 2023-07-20 02:00 | NUR ---
PT IS RESTING IN BED. PT REFUSES TO BE TURNED. PT DENIES ANY PAIN AT THIS TIME. VS REVIEWED. ALL QUESTIONS AND CONCERNS ADDRESSED. CALL LIGHT WITH IN REACH. BED IS LOWERED AND LOCKED. BED ALARM IS ON.
--- NOTE | 2023-07-20 04:00 | NUR ---
PT IS RESTING IN BED, PT IS REPOSITIONED. PT IS HAVING A HEADACHE, PRN MEDICATION GIVEN. PT IS ALERT AND PLEASENT. VITAL SIGNS ARE REVIEWED. ALL QUESTIONS AND CONCERNS ARE ADDRESSED. CALL LIGHT IS WITH IN REACH, BED IS LOWERED AND LOCKED. BED ALARM IS SET.
[2023-07-20 05:42] LABS: BASOPHILS 0.2 % (0-2); EOSINOPHILS 1.1 % (0-6); HEMATOCRIT 24.3 % (35.0-50.0); HEMOGLOBIN 8.3 g/dL (12.0-18.0); LYMPHOCYTES 7.7 % (24-44); MCHC 34.3 g/dl (30-36); MCV 96.2 fl (81-99); MONOCYTES 12.7 % (0-12); NEUTROPHILS 78.3 % (39-80); PLATELET COUNT 154 K/uL (140-440); RBC 2.53 M/ul (4.3-5.7); RDW 16.7 (10.5-15.0)
[2023-07-20 05:52] LABS: ANION GAP 11.4 (7-21); BUN/CREATININE RATIO 7.86 (6.0-28.6); CALCIUM 7.5 mg/dL (8.5-10.1); CREATININE, SERUM 0.89 mg/dL (0.70-1.30); POTASSIUM 3.4 mmol/L (3.5-5.1)
[2023-07-20 05:54] LABS: INR 1.36 (0.80-1.30); PROTIME 16.3 Sec (11.2-14.2)
--- NOTE | 2023-07-20 07:00 | NUR ---
PT IS RSTING IN BED, PT IS REPOSITIONED. PT DENIES ANY PAIN THIS MOMENT. PRECHECKLIST STARTED. VITAL SIGNS REVIEWED. WALLET IS PLACED IN LOCKBOX IN THE ROOM. CALL LIGHT WITH IN REACH. BED LOWERED AND LOCKED, BED ALARM SET.
--- NOTE | 2023-07-20 07:30 | NUR ---
REPORT RECEIVED FROM SHAHNAZ CHICAS. PT IN BED AWAKE ON PHONE, NO REQUESTS AT THIS TIME, AWAKE AND ALERT, MAKING JOKES AND SEEMS TO BE IN A CHEERFUL MOOD. CARDIZEM DRIP INFUSING AT 10MG/HR WITH HR 100-110 AFIB.
--- NOTE | 2023-07-20 08:00 | NUR ---
RT IN WITH PT.
--- NOTE | 2023-07-20 08:11 | NUR ---
IN TO DO ASSESSMENT, PT DENIES PAIN AT THIS TIME, LLE ELEVATED ON PILLOW WITH DRESSING CDI. LUNGS CLEAR, IS ENCOURAGED. PT REMINDED OF NPO STATUS. MARTINEZ DRAINING DARK URINE, IVF INFUSING AND SITES LOOK GOOD. PT ANSWERING QUESTIONS APPROPRIATELY ALTHOUGH HE DOES SEEM A BIT FORGETFUL REGARDING EVENTS OF THIS MORNING SO FAR BUT HE IS AWARE AND AGREEABLE TO THE PLAN FOR THE UPPER ENDOSCOPY THIS MORNING. HR 100-110'S AND CARDIZEM DRIP AT 10MG/HR.
--- NOTE | 2023-07-20 10:00 | NUR ---
DR PADILLA IN TO SEE PT AND DISCUSS PLAN FOR SCOPE TODAY. PT VERY EAGER TO EAT BUT AGGREEABLE TO PLAN.
--- NOTE | 2023-07-20 12:30 | NUR ---
PHYSICAL THERAPY IN TO WORK WITH PT, HR WAS MOSTLY 90-110'S DURING THIS TIME. PT TOLERATED ACTIVITY.
--- NOTE | 2023-07-20 14:02 | NUR ---
CCU ROUNDS. PT LEAVING FOR PROCEDURE. PROVIDED PRAYER.
--- NOTE | 2023-07-20 14:15 | NUR ---
PT LEAVING CCU WITH SURGERY FOR PLANNED SCOPE TODAY.
--- NOTE | 2023-07-20 15:34 | NUR ---
PT STILL DOWN IN SURGERY FOR SCOPE.
--- NOTE | 2023-07-20 15:50 | NUR ---
PT RECEIVED BACK FORM SURGERY DEPARTMENT AFTER UPPER ENDOSCOPY. PT IS AWAKE AND ALERT, ASKING MANY QUESTIONS, VERY ANXIOUS TO EAT.
--- NOTE | 2023-07-20 16:09 | NUR ---
[facility] [facility] AND RECOVERED BY AVIVA CUBA.
--- NOTE | 2023-07-20 16:30 | NUR ---
PT AWARE OF PLAN TO DO COLONOSCOPY TOMORROW PER DR GARCIA, INFORMED OF NEED TO CONTINUE CLEAR LIQUIDS AND NPO AT MIDNIGHT. PT DOES AGREE TO SCOPE AND TO STAY ON CLEAR LIQUIDS FOR NOW.
--- NOTE | 2023-07-20 17:58 | NUR ---
PT SITTING UP TALKING WITH , HR 100-120'S AFIB, UPDATE GIVEN TO DR JONAS. PLAN TO CONT CARDIZEM DRIP THROUGH THE NIGHT UNTIL AFTER COLONOSCOPY. DRIP AT 10MG/HR, WILL TURN UP TO 13MG/HR PER DR JONAS.
--- NOTE | 2023-07-20 18:45 | NUR ---
PT WAS ATTEMPTING TO GET UP TO BSC FOR BOWEL MOVEMENT AND HR WENT UP TO 150-170'S AFIB. PT DENIED FEELING SHORT OF BREATH AT THIS TIME OR ANY CHEST PAIN. DR JONAS ON UNIT AND AWARE, ORDER GIVEN TO TITRATE CARDIZEM DRIP UP TO 15MG/HR AND GIVE A 5MG IVP OF CARDIZEM. MED GIVEN, PT BACK OFF OF COMMODE AND HR DOWN TO 115-120'S. IV SITE TO LEFT ARM LEAKING, SITE DCD AND NEW SITE PLACED IN RAC. DRESSING CHANGE DONE TO LLE, SURGICAL SITE ON BOTH SIDES OF LEG DRESSED WITH SALINE SOAKED GAUZE AND THEN WRAPPED IN KERLEX AND SARA WRAP. PT TOLERATED WELL WITH MINIMAL PAIN. SURGICAL SITES LOOKED GOOD, WITH NO PURULENT DRAINAGE, TISSUE INSIDE LOOKING RED/PINK.
--- NOTE | 2023-07-20 19:00 | NUR ---
THIS RN IN TO ASSIST PRIMARY RN AND PATIENT TO HAVE BM. PATIENT HAS INCREASED HR. PATIENT PUT ON BEDPAN IN BED. PATIENT GIVEN PRN MEDICATION PER MD VERBAL ORDER. PATIENTS HR DECREASED AND PATIENT TRANSFERED TO BSC. PATIENT HAD MORE SOFT STOOL. PATIENTS BEDDING CHANGED AND PATIENT IS BACK IN BED RESTING. PATIENTS REMAINS ON MONITOR. CALL LIGTH IN REACH. BED ALARM ON FOR SAFETY.
--- NOTE | 2023-07-20 20:51 | NUR ---
DRESSING CHANGE COMPLETED WITH LORENZO RN. PATIENT TOLERATED ACTIVITY WELL. ASSESMENT COMPLETED. PATIENTS PM MEDS GIVEN PER ORDER. PATIENT RATES PAIN AT A 2/10 AND DENIES THE NEED FOR PAIN MEDICATION AT THIS TIME. PATIENT HAS IV FLUIDS IN FUSING PER ORDER. PATIENTS LLE ELEAVTED ON X2 PILLOWS. NEW IV PLACED IN LEFT AC. PATIENT IS DRINKING BOWEL PREP AT THIS TIME. PATIENT DENIES ANY FURTHER NEEDS. PATIENT IS FORGEFUL. BED ALARM PLACED ON FOR PATIENT SAFETY. PATIENTS CALL LIGHT AND BELONGINGS ARE WITHIN REACH.
--- NOTE | 2023-07-20 22:08 | NUR ---
PATIENT PLACED ON BED BRIDGES. PATIENT HAD 550ML OF LIQUID STOOL. RADHA CARE COMPLETED. ATTEND IN PLACE. PATIENT CONTINUES TO DRINK BOWEL PREP. NO FURTHER NEEDS NOTED. CALL LIGHT IN REACH.
[2023-07-21] VITALS (17 sets, daily range): BP systolic 100–143; BP diastolic 51–93
--- NOTE | 2023-07-21 00:39 | NUR ---
PATIENT COMPLETED BOWEL PREP. PATIENT ASSISTED ONTO THE BEDPAN. PATIENT HAD 650ML OF BROWN LIQUID STOOL WITH MINIMAL SEDIMENT NOTED. RADHA CARE COMPLETED. MARTINEZ CARE COMPLETED. NEW ATTEND IN PLACE. PATIENT EDUCATED THAT HE IS NOW NPO. PATIENT REPORTS A HEADACHE 3/10, PRN MEDICATION GIVEN PER ORDER. PATIENT DENIES ANY FURTHER NEEDS. CALL LIGHT IN REACH. BED ALARM ON FOR SAFETY. IVS INFUSING PER ORDER.
--- NOTE | 2023-07-21 03:21 | NUR ---
PATIENT ASSISTED ONTO BED BRIDGES. PATIENT HAD LIQUID BM LIGHT BROWN IN COLOR AND NO SEDIMENT NOTED. RADHA CARE COMPLETED. CLEAN ATTEDN IN PLACE. PATIENT REPOSITIONED IN BED. PATIENTS LLE ELEVATED ON X2 PILLOWS. PATIENT HAS IVS INFUSING PER ORDER. PATIENT DENIES ANY PAIN. PATIENT DENIES ANY NEEDS. CALL LIGHT AND BELONGINGS ARE WITHIN REACH.
--- NOTE | 2023-07-21 04:47 | NUR ---
PATIENT IS RESTING IN BED ON LEFT SIDE WITH EYES CLSOED, RR 11. HR 98. CALL LIGHT AND BELONGINGS ARE WITHIN REACH. IV INFUSING PER ORDER.
[2023-07-21 05:40] LABS: HEMATOCRIT 26.5 % (35.0-50.0); HEMOGLOBIN 9.1 g/dL (12.0-18.0); MCH 32.9 (27-36); MCHC 34.3 g/dl (30-36); MCV 95.9 fl (81-99); PLATELET COUNT 180 K/uL (140-440); RBC 2.77 M/ul (4.3-5.7)
[2023-07-21 05:56] LABS: INR 1.35 (0.80-1.30); PROTIME 16.2 Sec (11.2-14.2)
[2023-07-21 06:01] LABS: ALBUMIN/GLOBULIN RATIO 0.61 (1.1-2.4); ANION GAP 11.5 (7-21); BILIRUBIN, TOTAL 1.1 ng/dL (0.2-1.0); BUN/CREATININE RATIO 5.81 (6.0-28.6); CREATININE, SERUM 0.86 mg/dL (0.70-1.30); MAGNESIUM 1.7 mg/dL (1.8-2.4); PHOSPHORUS, INORGANIC 2.8 mg/dL (2.5-4.9); POTASSIUM 3.5 mmol/L (3.5-5.1); PROTEIN, TOTAL 5.3 g/dL (6.4-8.2)
[2023-07-21 06:07] LABS: LYMPHOCYTES, MANUAL DIFF 27; MONOCYTES, MANUAL DIFF 4; NEUTROPHILS, MANUAL DIFF 68
--- NOTE | 2023-07-21 06:13 | NUR ---
PATIENT REPOSITIONED IN BED. PATIENTS LLE ELEVATED ON X2 PILLOWS. PATIENTS DRESSING C/D/I. PATIENTS VITALS TAKEN AND RECORDED. PATIENT DENIES ANY PAIN. PATIENTS MARTINEZ EMPTIED AND MARTINEZ ACRE COMPLETED. PATIENTS IVS INFUSING PER ORDER. PATIENT DENIES ANY FURTHER NEEDS. CALL LIGHT IN REACH. BED ALARM ON FOR PATIENT SAFETY.
--- NOTE | 2023-07-21 07:28 | NUR ---
PATIENT ASSISTED TO USE THE BEDPAN. PATIENT HAD 50ML OF LIGHT BROWN LIQUID STOOL AND NO SEDIMENT NOTED. PATIENT TOLERATED ACITIVTY WELL. PATIENT DENIES ANY PAIN. PATIENT REPOSITIONED IN BED. PATIENTS CALL LIGHT AND BELONGINGS ARE WITHIN REACH.
--- NOTE | 2023-07-21 07:30 | NUR ---
REPORT RECEIVED. PATIENT IS RESTING IN BED AT THIS TIME. DENIES PAIN. DRESSING TO LEFT LEG IS INTACT. LEFT LEG ELEVATED ON 2 PILLOWS. PATIENT FOLLOWING COMMANDS.
--- NOTE | 2023-07-21 08:10 | NUR ---
Spoke with Benja. He will have colonoscopy today. Discussed tenative plan for dc in the next few days. Pt does not want placement. He has had HH in the past and would like to use [facility]. Will follow up tomorrow with him.
--- NOTE | 2023-07-21 10:10 | NUR ---
PHYSICAL THERAPY HERE TO WORK WITH PATIENT.
--- NOTE | 2023-07-21 10:31 | NUR ---
SITTING UP IN CHAIR. PATIENT DENIES PAIN. IS IN ROOM. REMAINS NPO, PENDING COLONOSCOPY. IVF PATENT.
--- NOTE | 2023-07-21 11:09 | NUR ---
CCU ROUNDS. 15 MINUTES. PT AND EXHIBITED CONGRUENT RESPONSES CONSISTENT WITH SITUATION. PROVIDED HOSPITALITY; FACILITATED STORY TELLING; LISTENED EMPATHETICALLY; COMFIRMED INFORMATION FROM TREATMENT TEAM; PROVIDED LIFE SCIENCES INSTRUCTOR EDUCATION; PROVIDED PRAYER. PT AND EXPRESSED APPRECIATION.
--- NOTE | 2023-07-21 11:45 | NUR ---
BACK TO BED AFTER WORKING WITH OT. REMAINS ON CARDIZEM GTT AT 15 MG/HR. IVF AT 125 ML/HR. MARTINEZ CATH PATENT. HOB ELEVATED
--- NOTE | 2023-07-21 13:34 | NUR ---
DRESSING TO LEFT LEG REDRESED. PATIENT TOLERATED WELL.
--- NOTE | 2023-07-21 16:15 | NUR ---
RETURNED TO CCU. REPORT RECEIVED FROM OCCUPATIONAL HEALTH AND SAFETY OFFICER. PATIENT IS AWAKE AND ALERT. DENIES PAIN. LLL ELEVATED ON 2 PILLOWS.
--- NOTE | 2023-07-21 16:20 | NUR ---
MIGUEL GRIFFITH DC'D WHILE IN PACU.
--- NOTE | 2023-07-21 17:00 | NUR ---
PATIENT SITTING UP IN BED, VITALS CHARTED. DINNER PROVIDED. AT BEDSIDE. CALL LIGHT IN EASY REACH
--- NOTE | 2023-07-21 17:31 | PATH ---
[facility] [address] [facility] [place], [place] [address] Signed SPECIMEN(S): A LEFT LEG HEMATOMA SPECIMEN SOURCE: A. LEFT LEG HEMATOMA CLINICAL HISTORY: S/p fall compartment syndrome. Sup INR anemia, soft tissue bleeding left leg. FINAL PATHOLOGIC DIAGNOSIS: Left leg hematoma: - Blood clot and fragments of fibroadipose and vasculature. JVR:clv MICROSCOPIC EXAMINATION: Histologic sections of all submitted blocks are examined by light microscopy. These findings, together with the gross examination, support the pathologic diagnosis. GROSS DESCRIPTION: The specimen, labeled and designated "Jennifer, Dominic" and designated on the requisition "left leg hematoma," is received in formalin and consists of a portion of kincaid soft to red-brown clot-like tissue (6.0 x 6.0 x 3.4 cm in aggregate). The tissue is serially sectioned to reveal a red-brown soft cut surfaces. Front End Developer Designer sections are submitted in cassette A1. AC (under the direct supervision of a pathologist) The Gross Description was prepared using a voice recognition system. The report was reviewed for accuracy; however, sound-alike word errors, addition and/or deletions may occur. If there is any question about this report, please contact Client Services. ADDITIONAL NOTES: Immunohistochemical and/or in situ hybridization studies if performed in this case included appropriate positive controls that reacted as expected. This test was developed and its performance characteristics determined by [facility]. It has not been cleared or approved by the U.S. Food and Drug Administration. The FDA has determined that such clearance or approval is not necessary. This test is used for clinical purposes. It should not be regarded as investigational or for research. [facility] is certified under the Clinical Laboratory Improvement PATIENT NAME: ADRIENNE LANDRUM PATHOLOGY DATE OF : 45 REPORT #: [id number] PHYSICIAN: CHARO PATHOLOGY PCP: LEONORA LANDRUM NP REPORT IS CONFIDENTIAL AND NOT TO BE RELEASED WITHOUT AUTHORIZATION [facility] [address] [place], [place] [address] Signed Amendments of 1988 (CLIA) as qualified to perform high complexity clinical laboratory testing. PERFORMING LABORATORY: Technical component was performed by [facility], [address] [place] [id number] (CLIA# [id number]). Professional interpretation was performed by [facility], [address] [place] [id number] (CLIA#: [id number]). Diagnostician: Del Way MD Pathologist Electronically Signed 07/21/2023 Copies: ~ PATIENT NAME: ADRIENNE LANDRUM PATHOLOGY DATE OF : 45 REPORT #: [id number] PHYSICIAN: CHARO PATHOLOGY PCP: LEONORA LANDRUM NP REPORT IS CONFIDENTIAL AND NOT TO BE RELEASED WITHOUT AUTHORIZATION
--- NOTE | 2023-07-21 17:34 | NUR ---
07/21/23 1734 Lupe Reyes 1549 PT ARRIVED IN PACU SLEEPY. ABD SOFT. 1555 PT AWAKE AND TALKING TO STAFF. NO C/O'S. 1600 DR AT BEDSIDE. ALL QUESTIONS ANSWERED. 1615 TO CCU. REPORT GIVEN TO RN.
--- NOTE | 2023-07-21 18:41 | NUR ---
TOOK DINNER WELL. DR. JONAS UPDATED ON PATIENT. ORDERS RECEIVED. PO MEDS GIVEN. IVF INFUSING AND MG INFUSING.
--- NOTE | 2023-07-21 19:06 | OR ---
[facility] [address], [place] [address] Signed DATE OF OPERATION: 07/20/2023 SURGEON: Nuria Garcia MD PREOPERATIVE DIAGNOSES: 1. Anemia at presentation hematocrit 24, subsequent transfusion requirement. 2. Excessive anticoagulation, INR 18 ultimately corrected. 3. Left lower extremity compartment syndrome related to intramuscular hematoma, status post drainage and four-compartment fasciotomy, left lower leg. 4. Chronic and acute alcoholism and alcohol withdrawal syndrome (resolved). POSTOPERATIVE DIAGNOSIS: Normal esophagus, stomach and duodenum. PROCEDURE: Esophagogastroduodenoscopy with biopsy. ANESTHESIA: Intravenous sedation, propofol, Naz Albert CRNA. INDICATION: This 77-year-old white man is a patient generally of SHAWN Lucas. He has chronic alcoholism. He was admitted by Lance Cavazos MD on 07/15/2023 following presentation for a sore and distended left leg. He was found to have ecchymosis and findings suggestive of compartment syndrome. He underwent four-compartment fasciotomy by me having found his posterior compartment on the left side to have a pressure of 36 mmHg. He is also found to have an intramuscular hematoma of the posterior compartment. He improved quite markedly regarding his pain and so forth, but did have anemia requiring transfusion. He was said to have at least one large black bowel movement at some point. The patient then suffered alcohol withdrawal syndrome and was promptly managed with phenobarbital, which has completely allowed for clearance of his delirium. As he has had anemia at the time of presentation and required transfusion and the findings at operation could not account for such a profound level of anemia requiring such transfusion, upper endoscopy has been recommended to assess for a source of bleeding. This is particularly important as he is likely to need repeat anticoagulation due to atrial fibrillation and a documented left popliteal deep venous thrombosis. Upper endoscopy risks were reviewed with him including, but not limited to bleeding, infection, and perforation. He understands and wished to proceed. FINDINGS: Electronically Signed By: NURIA GARCIA MD 07/21/23 1906 PATIENT NAME: ADRIENNE LANDRUM OPERATIVE REPORT DATE OF : 45 REPORT #: [id number] PHYSICIAN: NURIA GARCIA MD PCP: LEONORA LANDRUM NP REPORT IS CONFIDENTIAL AND NOT TO BE RELEASED WITHOUT AUTHORIZATION [facility] [address], [place] [address] Signed There was no sign of lesion to account for anemia. His esophagus, stomach and duodenum were normal. CLOtest was negative and antral biopsy was obtained to assess no underlying other occult abnormality. DESCRIPTION OF PROCEDURE: The patient was brought to the endoscopy suite and placed in the lateral decubitus position, given intravenous sedation with propofol infusional technique by the manager restaurant. Special care was taken in applying mouth guards to his teeth, which were very precarious in their poor health. A bite block was additionally placed. An Olympus video upper endoscope was passed in the hypopharynx and advanced into the esophagus without problem. The vocal cords were normal. Esophagus was normal. There was no sign of varices, inflammation or other problem. The stomach was insufflated with air. Rugal folds were normal. The pylorus was normal. Scope was passed through into the duodenum, which was normal. Scope was withdrawn and biopsies then taken of the antrum for both ROSHAN and pathologic test in retroflexed view was normal. There was no sign of Kathy-Mccormick tear, gastric varices, or other problem. The scope was carefully withdrawn to the esophagus and photographs were taken, but no additional biopsies required. The scope was removed and the patient was taken to the recovery room in good condition. CONCLUDING DIAGNOSIS: No abnormality on upper endoscopy. PLAN: Consideration will be made for bowel prep and consideration also for a colonoscopy given his underlying situation. I have reviewed this with Dr. Dover, the covering hospitalist at this time. MD LUTHER Celis/BLANCHEL /[id number] cc: SHAWN Lucas. Lance Cavazos MD Electronically Signed By: NURIA GARCIA MD 07/21/23 1906 PATIENT NAME: ADRIENNE LANDRUM OPERATIVE REPORT DATE OF : 45 REPORT #: [id number] PHYSICIAN: NURIA GARCIA MD PCP: LEONORA LANDRUM NP REPORT IS CONFIDENTIAL AND NOT TO BE RELEASED WITHOUT AUTHORIZATION [facility] [address] [facility] [place], [place] [address] Signed Kavon Dover MD Copies: ~ Electronically Signed By: NURIA GARCIA MD 07/21/23 1906 PATIENT NAME: ADRIENNE LANDRUM OPERATIVE REPORT DATE OF : 45 REPORT #: [id number] PHYSICIAN: NURIA GARCIA MD PCP: LEONORA LANDRUM NP REPORT IS CONFIDENTIAL AND NOT TO BE RELEASED WITHOUT AUTHORIZATION
--- NOTE | 2023-07-21 21:22 | NUR ---
IN TO DO HS MEDS/CARE. PT HAS LLE ELEVATED UP ON PILLOW, DENIES PAIN. HR 90-100'S AFIB. HE IS WATCHING TV IN BED, STATES HE IS JUST ABOUT READY TO TRY TO GO TO SLEEP. BED ALARM ON.
[2023-07-22] VITALS (11 sets, daily range): BP systolic 104–149; BP diastolic 56–89
--- NOTE | 2023-07-22 03:57 | NUR ---
PT AWAKENS BRIEFLY FOR ASSESSMENT, DENIES NEEDS, BACK TO SLEEP.
--- NOTE | 2023-07-22 06:34 | OR ---
[facility] [address] [place], [place] [address] Signed DATE OF OPERATION: 07/21/2023 SURGEON: Nuria Garcia MD PREOPERATIVE DIAGNOSES: 1. Recent excessive anticoagulation, INR greater than 18 with uncertain cause of anemia. 2. Recent exploration of left leg including extraction of gastrocnemius hematoma and four-compartment fasciotomy. 3. Recent normal upper endoscopy. POSTOPERATIVE DIAGNOSES: Extensive sigmoid and left-sided diverticulosis. No evidence of bleeding or neoplasm or colitis. PROCEDURE: Total colonoscopy to cecum. ANESTHESIA: Intravenous sedation, propofol infusion, Aryan Gonzalez CRNA INDICATIONS: This 77-year-old white man is now on the hospitalist service with Dr. Santillan and primary provider, SHAWN Lucas. On 07/15/2023, he was admitted to the hospital with severe left lower extremity pain and various areas of bruising on his body. He was ultimately found to have a compartment syndrome of the left lower leg and underwent exploration by me with evacuation of a left posterior lower leg hematoma and underwent four-compartment fasciotomy for hypertension of the posterior compartment. This has largely resolved. He was noted to be anemic at presentation with hematocrit of 24, with no overt bleeding per rectum or hematemesis. He did have what was thought to be a dark bowel movement in the perioperative period. He was additionally noted to have a left popliteal vein thrombosis (DVT without associated pulmonary embolism). He has essentially resolved the compartment syndrome of the left leg and sequential closure of his fasciotomy wounds is ongoing with elastic bands. Concern was maintained for an occult source of GI bleeding that may account for his profound anemia requiring nearly 6 units of blood transfusion since admission. Upper endoscopy was performed yesterday which showed no lesion to account for anemia. On that basis, he is undergoing colonoscopy at this time. He understands as does his the risk of bleeding, infection, and perforation and wished to proceed. FINDINGS: Electronically Signed By: NURIA GARCIA MD 07/21/23 4986 Electronically Signed By: NURIA GARCIA MD 07/23/23 1326 PATIENT NAME: ADRIENNE LANDRUM RYAN OPERATIVE REPORT DATE OF : 45 REPORT #: [id number] PHYSICIAN: NURIA GARCIA MD PCP: LEONORA LANDRUM NP REPORT IS CONFIDENTIAL AND NOT TO BE RELEASED WITHOUT AUTHORIZATION [facility] [address] [place], [place] [address] Signed The prep was good. Complete colonoscopy was undertaken of the cecum without question. He had numerous diverticula of the sigmoid and left colon. He had scattered diverticula more proximally. There was no evidence of polyp, colitis, cancer, or sign of active bleeding at this time. Of special note, the posterior aspect of his left leg does show a fair amount of ecchymosis at this point, which was not apparent few days ago and may be a reveal of intramuscular bleeding he may have had previously. PROCEDURE IN DETAIL: The patient was brought to the endoscopy suite and placed in lateral decubitus position, given intravenous sedation with propofol infusional technique. Full cardiopulmonary monitoring was maintained. Digital rectal examination was normal. An Olympus video colonoscope was passed in the rectum and manipulated throughout the colon noting numerous diverticula of the sigmoid and left colon with a fair amount of effort in time. The scope carefully advanced to the cecum. The ileocecal valve and appendiceal orifice were normal. Scope was withdrawn from that point and scattered diverticula were noted including the right colon, transverse, but most dominantly left colon and sigmoid. There was no evidence of polyps or neoplasm or colitis and certainly no sign of ischemic colitis. Retroflexed view of the rectum was normal. The scope was removed. The patient was taken to the recovery room in good condition. CONCLUDING DIAGNOSIS: Diverticulosis. No lesion to account for anemia. ASSESSMENT: I believe it is possible that perhaps his anemia was multifactorial including his underlying chronic alcoholism, poor nutritional status, bleeding into the gastrocnemius as verified by exploration and hematoma evacuation and perhaps additional microvascular bleeding in the more proximal (thigh) area. In any case, I do not see an overt contraindication to anticoagulation as has been planned by the hospitalist team now including Dr. Santillan. Nuria Garcia MD /[facility] /[id number] Electronically Signed By: NURIA GARCIA MD 07/21/23 1906 Electronically Signed By: NURIA GARCIA MD 07/23/23 1326 PATIENT NAME: ADRIENNE LANDRUM OPERATIVE REPORT DATE OF : 45 REPORT #: [id number] PHYSICIAN: NURIA GARCIA MD PCP: LEONORA LANDRUM NP REPORT IS CONFIDENTIAL AND NOT TO BE RELEASED WITHOUT AUTHORIZATION [address] [address] Signed cc: Dr. Jacque LANDRUM NP Copies: ~ Electronically Signed By: NURIA GARCIA MD 07/21/23 1906 Electronically Signed By: NURIA GARCIA MD 07/23/23 1326 PATIENT NAME: ADRIENNE LANDRUM OPERATIVE REPORT DATE OF : 45 REPORT #: [id number] PHYSICIAN: NURIA GARCIA MD PCP: LEONORA LANDRUM NP REPORT IS CONFIDENTIAL AND NOT TO BE RELEASED WITHOUT AUTHORIZATION
--- NOTE | 2023-07-22 06:48 | NUR ---
PT REPORTS 6/10 LEFT LEG PAIN DESCRIBED CONSTANT THROBBING. PRN PAIN MED PROVIDED. COFFEE PROVIDED. PT STATES NO OTHER NEEDS. CALL LIGHT IN REACH.
--- NOTE | 2023-07-22 09:49 | NUR ---
MORNING ASSESSMENT COMPLETE. PT AWAKE, ALERT AND ORIENTED IN BED. LLE ELEVATED ON PILLOWS IN BED. LLE STRONG PEDAL PULSES PRESENT. DRESSING CDI. EDEMA MINIMAL TO LLE. PT DENIES PAIN AT THIS TIME. PT GIVEN PO MEDS SCHEDULED, SEE EMAR. PT DISCUSSING DISCHARGE IN INPT REHAB, EXPLAINED CASE MANAGMENT WOULD DISCUSS THIS WITH HIM. PT VERBALIZED UNDERSTANING. PT HEART RATE 110-120S ON MONITOR. OTHER VSS. CALL LIGHT IN REACH. P DENIES NEEDS AT THIS TIME.
--- NOTE | 2023-07-22 10:08 | NUR ---
PT SITTING UP IN BED, VISITING WITH . PT DENIES PAIN OR NEEDS AT THIS TIME. CALL LIGHT IN REACH.
--- NOTE | 2023-07-22 10:20 | NUR ---
Spoke with pt and his . Updated concern of PT and Dr. They feel pt needs a SNF and are concerned will not be able to care for pt in the home. Pt initially stating he can go home with HH, but then states he has changed his mind. He does want to go to [facility] for rehab, then OP therapy or to the [facility] for PT. Discussed I will send his chart to at [facility]. They will let me know this afternoon or tomorrow. We did discuss if pt stays more than 20 days, they may have a copay. He depends on how the insurance has contracted. and pt state they are not concerned.
--- NOTE | 2023-07-22 10:50 | NUR ---
pt to mri via stretcher
--- NOTE | 2023-07-22 11:30 | NUR ---
Pt arrived to room via bed, transferred by AVIVA Reece. Report received from AVIVA Stevens. Pt is A&O x4, supine in bed, left leg elevated on pillows. Denies any pain at this time. Call light, bedside table, and personal belongings placed in reach. Pt oriented to his room and advised to use the call light if he feels he wants to get up to the chair, or have a bowel movement. Pt verbalized understanding. Skin assessment performed with AVIVA Stevens. Bruising noted, extensively, to the back and lateral side of his left leg, and scattered bruising noted about his person. LLE is covered with antonio wrap and I was advised that beneath that, against the wound, is saline moistened gauze, kerlex, and then the antonio wrap. Dr. Subramanian has not been in to see pt yet, therefore we have not taken down the dressing to change it yet.
--- NOTE | 2023-07-22 11:45 | NUR ---
PT TRANSFERED TO RM 111 VIA BED, REPORT GIVEN TO CAROL CHICAS, ALL QUESTIONS ANSWERED.
--- NOTE | 2023-07-22 14:00 | NUR ---
Faxed Face sheet, H$P, surgery notes, consults, labs, imaging to EMILY at [facility]. He called and had questions regarding length of stay and need. He will have nurse review and will submit for auth. for admit on Thursday. They are not accepting at this time, but will let me know tomorrow.
--- NOTE | 2023-07-22 14:30 | NUR ---
DR. GARCIA IN WITH PT TO REMOVE DRESSING AND ASSESS FASCIOTOMY. SMALL AMOUNT OF SEROSANGUINOUS DRAINAGE TO GAUZE. DR. GARCIA RE-DRESSED THE WOUNDS AND DISCUSSED WITH THE PT THAT HE WOULD LIKE TO CLOSE UP THE FASCIOTOMY TOMORROW. PT VERBALIZED UNDERSTANDING AND LATER SIGNED CONSENT WITH STAR RIVERA RN WITNESS.
--- NOTE | 2023-07-22 15:54 | NUR ---
EMILY called and requested CWA assessments and order to dc. Faxed the assessments with a note for protocol. Protocol shows when pt less than 8, may stop assessments. Pts numbers less than8 on Jul 18 and . PT note and CWA's faxed.
--- NOTE | 2023-07-22 16:00 | NUR ---
PATIENT'S DIET WAS ADVANCED TO REGULAR FOR DINNER YESTERDAY. HIS APPETITE IS GOOD. HE ATE 100% OF BREAKFAST AND 75% OF LUNCH TODAY. HE MAY GO TO A SNF UPON DISCHARGE FOR SHORT TERM REHAB. WILL MONITOR PATIENT FOR ANY OTHER NUTRITION NEEDS WHILE HERE.
--- NOTE | 2023-07-22 16:14 | PATH ---
[facility] [address] [facility] [place] [address] Signed SPECIMEN(S): A ANTRUM/PYLORUS BIOPSY SPECIMEN SOURCE: A. ANTRUM/PYLORUS BIOPSY CLINICAL HISTORY: Anemia FINAL PATHOLOGIC DIAGNOSIS: Antrum/pylorus biopsy: - Benign gastric-type mucosa with focal slight chronic inflammation. - Negative for evidence of Helicobacter organisms on routine HE-stained sections. JVR:elsa MICROSCOPIC EXAMINATION: Histologic sections of all submitted blocks are examined by light microscopy. These findings, together with the gross examination, support the pathologic diagnosis. GROSS DESCRIPTION: The specimen, labeled and designated "Landrum, antrum/pylorus biopsy," is received in formalin and consists of three kincaid soft tissue fragments, ranging from 0.2-0.6 cm. Entirely submitted in (A1). VB (under the direct supervision of a pathologist) The Gross Description was prepared using a voice recognition system. The report was reviewed for accuracy; however, sound-alike word errors, addition and/or deletions may occur. If there is any question about this report, please contact Client Services. PERFORMING LABORATORY: Technical component was performed by [facility], [address] [place] [id number] (CLIA# [id number]). Professional interpretation was performed by [facility] - [facility], [address] [place] [id number] (CLIA#: [id number]). Diagnostician: Del Way MD Pathologist Electronically Signed 07/22/2023 PATIENT NAME: ADRIENNE LANDRUM PATHOLOGY DATE OF : 45 REPORT #: [id number] PHYSICIAN: CHARO ESQUIVEL PCP: LEONORA LANDRUM NP REPORT IS CONFIDENTIAL AND NOT TO BE RELEASED WITHOUT AUTHORIZATION [address] [place], [place] [address] Signed Copies: ~ PATIENT NAME: ADRIENNE LANDRUM PATHOLOGY DATE OF : 45 REPORT #: [id number] PHYSICIAN: CHARO ESQUIVEL PCP: LEONORA LANDRUM NP REPORT IS CONFIDENTIAL AND NOT TO BE RELEASED WITHOUT AUTHORIZATION
[2023-07-22 17:22] LABS: BASOPHILS 0.4 % (0-2); EOSINOPHILS 2.4 % (0-6); HEMOGLOBIN 10.4 g/dL (12.0-18.0); LYMPHOCYTES 11.2 % (24-44); MCH 31.5 (27-36); MCHC 32.5 g/dl (30-36); MCV 97.2 fl (81-99); MONOCYTES 19.4 % (0-12); NEUTROPHILS 66.6 % (39-80); PLATELET COUNT 272 K/uL (140-440); RDW 18.1 (10.5-15.0)
[2023-07-22 17:41] LABS: ANION GAP 10.2 (7-21); BUN/CREATININE RATIO 9.34 (6.0-28.6); CALCIUM 8.4 mg/dL (8.5-10.1); CREATININE, SERUM 1.07 mg/dL (0.70-1.30); MAGNESIUM 1.9 mg/dL (1.8-2.4); POTASSIUM 4.2 mmol/L (3.5-5.1)
--- NOTE | 2023-07-22 19:30 | NUR ---
Patient resting in bed watching TV, no noted distress, Report provided by day shift RN. caqll light within reach.
--- NOTE | 2023-07-22 21:54 | NUR ---
VSS, PATIENT DENIES PAIN, LEFT LOWER LEG SARA WRAPPED DRESSING DRY CLEAN AND INTACT, CMS INTACT, LEG SWOLLEN AND PATIENT FEELS IT IS GOING DOWN, BRUISING NOTED (SCATTERED AREAS). TELE INTACT WITH HR AT 83, PATIENT DENIES CP OR SOB, PATIENT TALKATIVE AND PLEASNAT, HE IS A/O BUT REPEATS INFORMATION IN CONVERSATION. LIGHTS ARE OUT AT THIS TIME, PATIENT APPEARS COMFORTABLE, CALL LIGHT WITHIN REACH.
--- NOTE | 2023-07-22 22:31 | NUR ---
Patient appears sleeping, light snore, appears comfortable, call light within reach.
[2023-07-23] VITALS (10 sets, daily range): BP systolic 102–126; BP diastolic 47–89
--- NOTE | 2023-07-23 00:15 | NUR ---
Patient sleeping comfortable, HR jumping up to high 120's, lopressor 5mg IV given. Initial BP 125/67 (80) HR 128, mcc through administration BP 120/60 (60) HR 106, end of administration BP 111/52 (64) HR 97. Patient awoke for short period with no compliants. Cullen intact below level of bed. 1000ml output. Tele remains intact.
--- NOTE | 2023-07-23 02:05 | NUR ---
Patient remains a sleep, appears comfortable, tele intact and HR has remained < 100. no distress noted, RR 18 even and unlabored. call light within reach.
--- NOTE | 2023-07-23 04:10 | NUR ---
Patient remains a sleep with light snore. appears comfortable, ansari intact below level of bed. call light within reach.
[2023-07-23 05:25] LABS: BASOPHILS 0.6 % (0-2); EOSINOPHILS 2.7 % (0-6); HEMATOCRIT 29.5 % (35.0-50.0); HEMOGLOBIN 9.9 g/dL (12.0-18.0); LYMPHOCYTES 15.1 % (24-44); MCH 32.1 (27-36); MCHC 33.4 g/dl (30-36); MCV 96.3 fl (81-99); MONOCYTES 21.9 % (0-12); NEUTROPHILS 59.7 % (39-80); PLATELET COUNT 249 K/uL (140-440); RBC 3.07 M/ul (4.3-5.7); RDW 17.9 (10.5-15.0)
[2023-07-23 05:45] LABS: ALBUMIN 2.1 g/dL (3.4-5.0); ALBUMIN/GLOBULIN RATIO 0.66 (1.1-2.4); ANION GAP 11.1 (7-21); BILIRUBIN, TOTAL 0.8 ng/dL (0.2-1.0); BUN/CREATININE RATIO 9.8 (6.0-28.6); CALCIUM 8.2 mg/dL (8.5-10.1); CREATININE, SERUM 1.02 mg/dL (0.70-1.30); POTASSIUM 4.1 mmol/L (3.5-5.1); PROTEIN, TOTAL 5.3 g/dL (6.4-8.2)
--- NOTE | 2023-07-23 06:04 | NUR ---
Patient awake, slept well last night, Has been NPO since MN. VSS, Has had minimal discomfort, CMS to left lower extremety intact, bruising without change. dressing intact and dry. leg elevated. patient watching TV. ansari remains intact below level of bed. Pre op surgical scrubs done. call light within reach.
--- NOTE | 2023-07-23 07:05 | NUR ---
Pt report received from AVIVA Madrigal. Pt is awake, resting in bed supine, television on. A&O x4. Pt is aware that he is going to go to surgery today to close the fasciotomies. Pt requested that we place his wallet, watch, and cell phone into the pt lock box in his room, which was done. Call light in reach. Denies needs at this time. Kaitlin reports that the wipe down is complete, LR is hanging on straight tubing, IV Flagyl administered, pre-procedure check list is complete, and anesthesia summary on chart as well as the signed consent.
--- NOTE | 2023-07-23 08:12 | NUR ---
RN from Day Surgery here to transfer pt to Day Surgery. Administered pt's A.M. medications per Dr. Subramanian (Day surgery RN confirmed over the phone with someone that the pt can have his meds). Pt is A&O x4. IV site is patent, no blood return, but no swelling, redness, leaking, no pain or burning at site, flushes well. Pt transferred to day surgery via bed by YARIEL CHICAS.
--- NOTE | 2023-07-23 10:00 | NUR ---
Pts chart faxed to [facility]& as I was notified by Nolvia they are not able to take any patients at this time. I spoke with Danika at [facility]&R.
--- NOTE | 2023-07-23 10:09 | NUR ---
07/23/23 1009 Mehnaz Null 0275 PT ARRIVED TO PACU ON RA AND REPORTS PAIN IN LEG 03/26. PT AWAKE AND TALKING TO RN. PT REQUESTS HIS GLASSES AND GLASSES PLACED. 4451 PAIN MEDICATION GIVEN, PT GRIMACING OFF AND ON.
--- NOTE | 2023-07-23 10:40 | NUR ---
Pt arrived back in room from surgery via hospital bed, transferred by Mehnaz Gonzalez RN. Pt is A&O x4, reports his pain is 4 out of 10. Pt report received from AVIVA Darby at this time. VSS. Pt is currently on 2LPM O2 via NC. Fingers are pale. Good sensation and motion, cap refill about 3 seconds in Upper and Lower extremities. Pedal pulses palpable and pt is moving all 4 extremeties well. is at bedside. Dressing to LLE is intact, shadowing noted. Call light, personal belongings, and bedside table in reach.
--- NOTE | 2023-07-23 11:41 | NUR ---
MS ROUNDS. PHYSICAL THERAPHY IN WITH PATIENT. DID NOT INTERRUPT. PROVIDED PRAYER.
--- NOTE | 2023-07-23 11:42 | NUR ---
Patient and spouse, Freya, notified [facility] is unable to take admissions at this time. Informed them chart has been sent to [facility]. Request chart be sent to [facility] in [place] due to difficulty with weather this time of year to [place], however, spouse is agreeable to [facility] if no bed availability in [place]. Called Michelle at [facility], no answer. Message left that chart is being sent. Chart faxed to [facility] in [place] for review.
--- NOTE | 2023-07-23 12:01 | NUR ---
IN FOR VS. PT UP IN CHAIR AFTER WORKING WITH PHYSICAL THERAPY. PT IS IN A PLEASANT MOOD. PT IS CURRENTLY EATING JELLO AND CRACKERS AND ASKING FOR SOUP. CALL LIGHT IN REACH. NO NAUSEA, PAIN 4 OUT OF 10. WILL ADMINISTER TYLENOL PER EMAR.
--- NOTE | 2023-07-23 12:20 | NUR ---
UR NOTES [facility] MUSCULOSKELETAL SURGERY OR PROCEDURE (GRG) INPATIENT 07/20/23 VARIANCE STAGE 2 07/21/23 VARIANCE STAGE 2 07/22/23 MET GRG MILESTONE 2 07/23/23 VARIANCE STAGE 3
--- NOTE | 2023-07-23 12:27 | NUR ---
PT IS UP IN CHAIR. TOLERATED CRACKERS AND JELLO WELL WITHOUT NAUSEA. PT'S HR HAS BEEN SUSTAINING ABOVE 100-144 WHILE SEATED IN HIS CHAIR AND 5MG LOPRESSOR ADMINISTERED IV PER EMAR. PT IS REQUESTING SOUP. CALLED DIETARY.
--- NOTE | 2023-07-23 13:26 | OR ---
[facility] [address] [place], [place] [address] Signed DATE OF OPERATION: 07/23/2023 SURGEON: Nuria Garcia MD PREOPERATIVE DIAGNOSES: 1. History of left lower leg four-compartment fasciotomy via two incisions on July 15, 2023. 2. Recent compartment syndrome of left lower extremity related to intramuscular hematoma secondary to excessive anticoagulation and probable trauma. 3. Chronic anemia. 4. Chronic alcoholism. 5. Dynamic skin closure of fasciotomy, medial and lateral leg (yellow vessel loop type) 26 cm and 19 cm. POSTOPERATIVE DIAGNOSES: 1. History of left lower leg four-compartment fasciotomy via two incisions on July 15, 2023. 2. Recent compartment syndrome of left lower extremity related to intramuscular hematoma secondary to excessive anticoagulation and probable trauma. 3. Chronic anemia. 4. Chronic alcoholism. 5. Dynamic skin closure of fasciotomy, medial and lateral leg (yellow vessel loop type) 26 cm and 19 cm. PROCEDURE: Closure of fasciotomy wounds x2, 26 cm medial left leg and 19 cm left lateral leg. ANESTHESIA: Intravenous sedation, Marquise Quick, FORENSIC DNA ANALYST INDICATIONS: This 77-year-old white man was admitted by Dr. Perez Cavazos with severe leg pain and excessive anticoagulation, related to Coumadin with an INR of 18.2. He was found to have tense swelling of his left lower extremity, bruising to some degree and bruising elsewhere and was suspected by Dr. Cavazos to have compartment syndrome of the left leg. Surgical consultation was undertaken and Daryl compartment pressure management was undertaken showing the posterior compartment of the left lower extremity to have a pressure of 36 mmHg, lateral compartment normal at 6-9 mmHg. He underwent urgent four-compartment fasciotomy after reversal of his anticoagulation. He was found to have hematoma in the muscle of the medial aspect of the left leg posteriorly. The drain was Electronically Signed By: NURIA GARCIA MD 07/23/23 1326 PATIENT NAME: ADRIENNE LANDRUM OPERATIVE REPORT DATE OF : 45 REPORT #: [id number] PHYSICIAN: NURIA GARCIA MD PCP: KAY LANDRUM NP REPORT IS CONFIDENTIAL AND NOT TO BE RELEASED WITHOUT AUTHORIZATION [facility] [address] [place], [place] [address] Signed placed and a complete fasciotomy undertaken. Obvious violaceous tense muscle was noted in the posterior lateral and posterior medial compartment; three other compartments showed no evidence of pathologic findings. Dynamic wound closure (yellow vessel loop type) was used to minimize drift of the skin. Over the ensuing days, he had marked improvement. He was noted to be anemic preoperatively. It was uncertain that operative bleeding or even the intramuscular hematoma account for that level of anemia. He did undergo upper endoscopy and colonoscopy showing no lesion to account for anemia. Over time, ecchymosis has developed to the posterior upper thigh indicative of additional bleeding elsewhere that is now likely considered the underlying source of anemia combined with chronic alcoholism and nutritional deficit related to that. He did suffer alcohol withdrawal syndrome, which was quickly addressed and fully addressed. He is now anticipating discharge soon. Sequential tightening of the dynamic wound closure with the yellow vessel loops has been undertaken, but more definitive closure of the wounds is necessary prior to discharge. The edema and swelling of his leg are much improved, ecchymosis and the yellowish hue to the subcutaneous tissues is resolving. He is anticipated to restart anticoagulation with Eliquis soon. Closure of the wounds was discussed with him as he is now fully lucid and of complete mental capacity. The risk of bleeding, infection, recurrent compartment syndrome, and other unforeseen complications was reviewed in detail. He understands and wished to proceed. FINDINGS: Skin edges were kept in check by the dynamic wound closure system. Closure was undertaken without complication with interrupted vertical mattress of 2-0 nylon suture. Both wounds were closed completely and without untoward finding. The underlying muscle quite viable. The medial incision was 26 cm in length, the lateral 19 cm. DESCRIPTION OF PROCEDURE: The patient was brought to the operating room, given intravenous sedation. Preoperative antibiotics had been ongoing. The lower leg was prepared with a Betadine based solution and draped sterilely. The yellow vessel loops and clips were prepped in situ so as to avoid loss of the dynamic tension on the skin edges. The medial incision was closed first. Removal of rafal and yellow vessel loop inferiorly extending superiorly over time was undertaken with closure of the wound with interrupted 2-0 nylon suture in a vertical mattress configuration. The medial incision measured 26 cm in length. With similar technique, the lateral fasciotomy skin defect was similarly closed, it measured Electronically Signed By: NURIA GARCIA MD 07/23/23 1326 PATIENT NAME: ADRIENNE LANDRUM OPERATIVE REPORT DATE OF : 45 REPORT #: [id number] PHYSICIAN: NURIA GARCIA MD PCP: KAY LANDRUM NP REPORT IS CONFIDENTIAL AND NOT TO BE RELEASED WITHOUT AUTHORIZATION [address] [address] Signed 19 cm. Acticoat dressings were applied to each site. After cleansing of the leg, he was ultimately allowed to emerge from sedation and taken to the recovery room in good condition, having suffered no complication. Blood loss was minimal. Complications, none. MD LUTHER Celis/BLANCHEL /[id number] cc: MD Kay Venegas Dr., FNP Copies: TOMMY BARBOSA MD ~ Electronically Signed By: NURIA GARCIA MD 07/23/23 1326 PATIENT NAME: ADRIENNE LANDRUM OPERATIVE REPORT DATE OF : 45 REPORT #: [id number] PHYSICIAN: NURIA GARCIA MD PCP: KAY LANDRUM NP REPORT IS CONFIDENTIAL AND NOT TO BE RELEASED WITHOUT AUTHORIZATION
--- NOTE | 2023-07-23 13:53 | NUR ---
CONFIRMED OK TO TAKE PATIENT OFF TELEMETRY AT THIS TIME
--- NOTE | 2023-07-23 14:00 | NUR ---
IN WITH PT FOR MED ADMINISTRATION. DR. JONAS IN TO SEE PT. AT BEDSIDE. PT IS UP IN CHAIR. DISCUSSED PLACEMENT FOR REHAB AND THEY ARE HOPING TO GO TO [place]. IV IS PATENT, NOT LEAKING, NO PAIN, SWELLING, OR REDNESS NOTED. LEFT FOREARM WHERE OLD IV WAS IS STILL RED, WARM TO THE TOUCH, WITH SOME SWELLING. NO PAIN. HOT PACK PROVIDED TO LEFT FOREARM. IV ABX RUNNING AFTER IV FLUSHED WITH 10ML NS. DRESSING INTACT. TELE DC'D AND PT PLACED ON CPOX. PT DENIES FURTHER NEEDS AT THIS TIME. LOWER EXTREMETIES ELEVATED. TYLENOL PROVIDED FOR 4 OUT OF 10 PAIN IN LEFT LEG. CALL LIGHT, BEDSIDE TABLE, AND PERSONAL BELONGINGS IN REACH.
--- NOTE | 2023-07-23 14:00 | NUR ---
Spoke with pts , they would now like to go the [facility]. Let them know I will pass this on to Vance MONET
--- NOTE | 2023-07-23 14:24 | NUR ---
[facility] has no bed availability. SPoke with Michelle. Patient and spouse notified. State they would prefer [facility] anyway. Discussed what needs to be taken to facility and transportation. Verbalize understanding.
--- NOTE | 2023-07-23 14:39 | NUR ---
PT PLACED ON EAR PROBE CPOX. IS WASHING PT'S HAIR WITH SHAMPOO CAP. PT DENIES NEEDS AT THIS TIME. CALL LIGHT IN REACH.
--- NOTE | 2023-07-23 15:11 | NUR ---
Brenna Garnica at [facility] and asked if they had review this pts chart. She states it is with the DNS.
--- NOTE | 2023-07-23 15:16 | NUR ---
PT IS UP IN CHAIR. AT ABOUT 1445 HOURS, WE NOTED THAT THE CATH BAG WAS LEAKING ONTO THE FLOOR FROM A SMALL TEAR IN THE BOTTOM OF THE BAG. URINE ON THE FLOOR WAS CLEANED UP, MARTINEZ BAG EMPTIED AND DISCARDED AFTER A NEW BAG WAS PLACED. AT 1510 HOURS, PT GIVEN HIS 1500 MEDS PER EMAR. QUESTIONS ANSWERED. CALL LIGHT IN REACH. PROVIDED PT WITH A CUP OF COFFEE AND HIS WITH A CUP OF ICED WATER. CALL LIGHT IN REACH.
--- NOTE | 2023-07-23 15:45 | NUR ---
PT WENT TO SURGERY TO CLOSE LOWER EXTREMITY FASCIOTOMY AROUND 0815 THIS MORNING AND RETURNED AROUND 1040 HOURS. PT HAS BEEN A&O X4 THIS SHIFT. LOPRESSOR 5MG IV ADMINISTERED ONE TIME THIS SHIFT FOR AFIB RATE 120-144. PT TELE DC'D AND PT PLACED ON CPOX PER PROTOCOL (24HR AFTER SURGERY). PT HAS BEEN UP IN THE CHAIR FOR MOST OF THE SHIFT AFTER RETURNING FROM SURGERY AND STILL HAS A MARTINEZ THAT IS PUTTING OUT QUANTITY SUFFICIENT, CLEAR DARK YELLOW URINE. PT IS S/L IN THE RAC AND RECEIVED IV FLAGYL. IV SITE IS PATENT, AFTER TROUBLESHOOTING A LEAK AFTER HE RETURNED FROM SURGERY (HUB LOOSE AND IV POSITIONAL), FLUSHES WELL. PT HAS BEEN ADVANCING HIS DIET TOLERATED AND HAS EATEN CRACKERS, BETH CRACKERS, JELLO, AND CHICKEN NOODLE SOUP WITH NO COMPLAINTS OF NAUSEA. HIS PAIN HAS BEEN HOVERING AROUND A 3 OR 4 (4 IS HIS TOLERABLE NUMBER), AND HE WAS GIVEN TYLENOL AROUND 1400 HOURS FOR PAIN 5 OUT OF 10. PT'S HAS BEEN IN HIS ROOM MOST OF THE SHIFT AND HE USES THE CALL LIGHT APPROPRIATELY. HE HAS BEEN IN A PLEASANT MOOD, WITH NO SIGNS OF ALCOHOL WITHDRAWAL.
--- NOTE | 2023-07-23 16:00 | NUR ---
I ASKED PATIENT IF HE WOULD LIKE TO WASH HIS HAIR WITH ONE OF OUR SHAMPOO CAPS AND HE SAID OK. WENT AND GOT ONE PUT IT ON HIS HEAD DID THE REST.
--- NOTE | 2023-07-23 16:27 | NUR ---
REPORT RECIEVED FROM AVIVA MEDINA. ASSUMING CARE OF PT WITH AVIVA GOMEZ. PT UP TO CHAIR VISITING WITH . PT STATES PAIN IS 2/10, DENIES NEED FOR PAIN MEDICATION. IV ASSESSED AND FLUSHED, WNL. PT CONTINUES TO BE FORGETFUL AT TIMES AND REPEATS SELF IN CONVERSATION. PT ALERT AND ORIENTED TO ALL BUT DATE. WEAKNESS IN LEFT LEG LIKELY D/T SURGERY, PT DOING PHYSICAL THERAPY EXCERCISES WHEN THIS RN ENTERS ROOM. PT DENIES ANY NUMBNESS OR TINGLING. CAP REFILL CONTINUES TO BE APPROXIMATELY 3 SECONDS IN ALL EXTREMETIES, NAIL BEDS PAIL, PULSES STRONG, EDEMA REMAINS PRESENT IN LLE. BRUISING REMAINS ON LLE. PT TOLERATING REGULAR DIET WELL. MARTINEZ CATHETER REMOVED PER ORDER, PT DUE TO VOID, EDUCATION ON USING CALL LIGHT TO AMBULATE. NO CHANGE IN SKIN ASSESSMENT SINCE PREVIOUS. MEDIAL LLE DRESSING INTACT, MODERATE AMOUNT OF SHADOWING PRESENT. LATERAL LLE DRESSING INTACT, SMALL AMOUNT OF SHADOWING PRESENT. CPOX IN PLACE, HR 90, O2 SATURATION >94%. PT STATES NO FURTHER NEEDS AT THIS TIME, CALL LIGHT WITHIN REACH, FOOT OF CHAIR RAISED.
--- NOTE | 2023-07-23 17:23 | NUR ---
HOURLY ROUNDING. PT UP TO CHAIR EATING DINNER. PT STATES NO NEEDS AT THIS TIME, CALL LIGHT WITHIN REACH. CPOX IN PLACE O2 SAT >95% AND HR 100.
--- NOTE | 2023-07-23 18:18 | NUR ---
AFTER I DID PATIENT'S VITALS AND I AND O PATIENT WANTED A PILLOW UNDER HIS HEAD. ALSO A PILLOW UNDER HIS LEG WHILE SITTING UP IN THE CHAIR. HE SAID HE WANTED TO STAY UP FOR A WHILE AND WATCH TV.
--- NOTE | 2023-07-23 18:28 | NUR ---
THIS RN TO ROOM TO CHECK ON PT. PT REMAINS UP TO CHAIR. PT CHEERFUL AND WORKING ON PHYSICAL THERAPY EXERCISES. PT REPORTS 3/10 PAIN IN LLE AT THIS TIME AND DENIES NEED FOR PAIN MEDICATION. PT DENIES NAUSEA. PT DENIES ADDITIONAL REQUESTS OR COMPLAINTS, STATES HE WOULD LIKE TO REMAIN UP TO THE CHAIR FOR A WHILE LONGER. CALL LIGHT WITHIN REACH. ICE WATER REFILLED.
--- NOTE | 2023-07-23 19:53 | NUR ---
Report provided by day shift RN. Patient up in recliner, no complaints or noted distress. Requested and given tylenol for mild discomfort, LLE swollen and bruised, dressing to inner and outer lower leb intact, dry. CMS intact. VSS, patient voided without difficulty, Watching TV now, call light within reach.
--- NOTE | 2023-07-23 21:07 | NUR ---
Patient assisted from recliner to bed with one person assist and FWW, tolerated well, Patient with no complaints, lights out and call light within reach.
[2023-07-24] VITALS (20 sets, daily range): BP systolic 94–152; BP diastolic 62–91
--- NOTE | 2023-07-24 00:11 | NUR ---
Patient awake stated that he is sleeping on and off, no complaints, lower leg without change, call light within reach.
--- NOTE | 2023-07-24 02:31 | NUR ---
Patient awake and watching TV, says he is not tired anymore. VSS, emptied urinal and patient voiding QS. Left leg remains bruised and swollen, pedal pulse present. Patient having minimal discomfort. leg is elevated. inner and outer lower leg dressings without change. Patient thinking about options for his discharge and plans on talking with farm planner in am. Call light within reach. no distress noted.
--- NOTE | 2023-07-24 04:28 | NUR ---
Patient awake watching TV, no complaints, lower left leg remains elevated, CMS intact, dressings without change, minimal discomfort, Patients HR up to 145 and Lopressor 5mg IV given with kBP 112/85 (89). [place] through administration HR 150 and BP 114/86 (93). End of administration HR142 and BP 106/66 (75). Have continued monitoring with HR going down in to 120's. Patient asymptomatic, Denies CP or increased SOB and appears comfortable. Will continue to monitor. Patient with light on and call light within reach.
--- NOTE | 2023-07-24 05:05 | NUR ---
Patients HR remaining elevated. hooked up to tele and HR 150-160. MD notified and order given to transfer to CCU given and to start Cardizem drip. Patient remains asymptomatic. Transferred to CCU via bed and report given to CCU - RN.
[2023-07-24 05:39] LABS: BASOPHILS 0.9 % (0-2); HEMATOCRIT 32.4 % (35.0-50.0); HEMOGLOBIN 10.6 g/dL (12.0-18.0); LYMPHOCYTES 13.2 % (24-44); MCH 31.9 (27-36); MCHC 32.9 g/dl (30-36); MCV 97.2 fl (81-99); MONOCYTES 16.4 % (0-12); NEUTROPHILS 67.5 % (39-80); PLATELET COUNT 362 K/uL (140-440); RBC 3.33 M/ul (4.3-5.7); RDW 18.2 (10.5-15.0)
[2023-07-24 05:51] LABS: INR 1.33 (0.80-1.30); PROTIME 15.9 Sec (11.2-14.2)
--- NOTE | 2023-07-24 06:01 | NUR ---
PATIENT ARRIVED TO THE UNIT VIA BED. REPORT RECEIVED FROM MIGUEL CHICAS. PATIENT IS AAOX4. DENIED CHEST PAIN OR SOB. HR 150-160'S; AFIB. CARDIZEM PUSH GIVEN AND DRIP STARTED AT 10 MG/HR. SECONDARY IV SITE ESTABLISHED; LABS SENT. MD IN TO SEE PATIENT. VERBAL ORDER GIVEN FOR EKG. VERIFIED ORDERS AND PLAN OF CARE.
[2023-07-24 06:02] LABS: ALBUMIN 2.3 g/dL (3.4-5.0); ALBUMIN/GLOBULIN RATIO 0.66 (1.1-2.4); ANION GAP 9.6 (7-21); BILIRUBIN, TOTAL 0.8 ng/dL (0.2-1.0); BUN/CREATININE RATIO 10.57 (6.0-28.6); CALCIUM 8.1 mg/dL (8.5-10.1); CREATININE, SERUM 1.04 mg/dL (0.70-1.30); POTASSIUM 3.6 mmol/L (3.5-5.1); PROTEIN, TOTAL 5.8 g/dL (6.4-8.2)
--- NOTE | 2023-07-24 06:37 | NUR ---
DISCUSSED PATIENT'S LAB FINDINGS WITH . ORDERS RECEIVED FOR LOPRESSOR PUSH, IV MAG AND PO K+. HR CONTINUES AT 150-160; A.FIB.
--- NOTE | 2023-07-24 07:29 | NUR ---
5 MG LOPRESSOR GIVEN; PATIENT'S HR IMPROVED BELOW 100 BPM. SECOND DOSE OF 5 MG HELD. MAG INFUSION STARTED PER ORDER; SITE WNL. CARDIZEM CONTINUES AT 20 MG/HR. BP WNL.
--- NOTE | 2023-07-24 07:30 | NUR ---
REPORT RECIEVED FROM ONLINE ADVERTISING ANALYST RN. PATIENT RESTING IN BED. THIS RN IN TO DISCUSS PLAN OF CARE WITH PATIENT.
--- NOTE | 2023-07-24 08:10 | NUR ---
THIS RN HAS BEEN IN WITH PATIENT FOR THE PAST 45 MINUTES. PATIENT IS TALKING OPENLY WITH PATIENT AND WONDERING ABOUT HIS PLAN AND THE POTENTIAL OF NOT DOING REHAB AND GOING HOME. THIS RN CONTINUED TO UPDATE PATIENT THAT I WILL NEED TO SPEAK WITH THE CASE MANAGEMENT STAFF WHO HAVE BEEN ASSISTING IN HIS CARES. PER MD PATIENT TO BE TRANSITIONED TO ORAL CARDIZEM FOUR TIMES A DAY.
--- NOTE | 2023-07-24 09:10 | NUR ---
THIS RN IN TO GIVE ORAL MEDICATIONS AFTER MEETING WITH CASE MANAGMENT. IPDATED PATIENT THAT PER CASE MANAGEMENT PATIENT STATED SHE IS UNABLE TO CARE FOR PATIENT AT HOME. PATIENT AGREEABLE TO THIS. PATIENT AWAITING PLACEMENT AT A FACILITY. CASE MANAGMENT WILL BE IN TO SEE PATIENT. DILTIAZEMN GTT DECREASED PER ORDERS TO TITRATE OFF FROM MD AFTER ORAL MEDICATIONS ADMINISTERED THIS AM.
--- NOTE | 2023-07-24 09:15 | NUR ---
PATIENT WORKING WITH PT/OT.
--- NOTE | 2023-07-24 09:49 | NUR ---
PT REQUESTED TYLENOL FOLLOWING PT. MEDICATED
--- NOTE | 2023-07-24 10:15 | NUR ---
PATIENT CARDIZEM GTT WEANED OFF. PATIENT HR TOLERATING WELL. PATIENT VITALS STABLE. PATIENT DOING STRETCHES IN THE BED DIRECTED BY PT. PATIENTS LEG DRESSING HAS SOME SCANT DRAINAGE NOTED ON LOWER POSTION OF DRESSING. THIS RN ATTEMPTED TO CALL MD GARCIA TWICE TO UPDATE THAT PATIENT WAS TRANSFERED OVER HERE IN THE NIGHT. DID NOT ANSWER.
--- NOTE | 2023-07-24 10:28 | NUR ---
Danika from [facility] states since patient is currently on a diltiazem drip they can not accept at this time and will review updated chart on Thursday when they receive it. Patient and spouse updated. Verbalize understanding. states she would prefer patient go by wheelchair van when he is DC'd to SNF. Questions answered.
--- NOTE | 2023-07-24 12:19 | NUR ---
PATIENT ASSISTED UP TO THE CHAIR. PATIENT USED WALKER FOR STABALIZATION. PATIENT 1-PERSON ASSIST FOR CORD MANAGEMENT. PATIENT TOOK 5 STEPS AND THEN SAT DOWN., EDUCATED PATIENT ON HOW TO SIT DOWN BETTER NEXT TIME FOR SMOOTHER TRANSITION. PATIENT HAS CALL LIGHT IN REACH. NO OTHER NEEDS AT THIS TIME.
--- NOTE | 2023-07-24 14:30 | NUR ---
RN IN TO GIVE MEDICATIONS. PATIENT UP IN THE CHAIR VISITING WITH HIS . DECAF COFFEE AND WATER PROVIDED. NO OTHER NEEDS AT THIS TIME. CALL LIGHT IN REACH. PATIENT CALLS APPROPRIATELY.
--- NOTE | 2023-07-24 16:00 | NUR ---
UPDATED MD ABOUT PATIENTS NOTED RHYTHM CHANGE. PATIENTS HEART RATE NOW 90-150 IN A.FLUTTER. PATIENTS HR IS MOSTLY IN THE LOWER 100'S WITH OCCASIONAL BURST UP TO 150 NON-SUSTAINED. PATIENTS BLOOD PRESSURE IS IN THE 90'S SYSTOLIC. PATIENT IS ASYMPTOMATIC AND DOES NOT FEEL THE DIFFERENCE IN HIS HEART RATE. PATIENT STATES WHEN HE CHECKS HIS HR AT HOME HE IS NORMALLY 115. PER MD GIVE 1 DOSE OF PRN 5MG METOPOLOL THAT IS ON PATIENTS EMAR. IF IMPROVEMENT IS NOTED MD WILL CHANGE METOPROLOL FOR NIGHT TIME DOSE. WILL MONITOR FOR CHANGES.
--- NOTE | 2023-07-24 17:00 | NUR ---
PATIENTS HR NOW 70-80'S WITH BP 90'S SYSTOLIC. PATIENT REMAINS ASYMPTOMATIC WITH HR AND BLOOD PRESSURE. MD JONAS UPDATED. PER MD JONAS PATIENT CAN STILL TRANSFER TO THE MEDICAL UNIT PLANNED. MD WILL ADJUST ORAL MEDICATION.
--- NOTE | 2023-07-24 18:10 | NUR ---
THIS RN IN TO DO VITALS, GIVE EVENING MEDICATIONS, AND ASSIST PATIENT BACK TO BED FROM THE CHAIR. PATIENT ABLE TO STAND- AND TRANSFER WITH 1 PERSON STAND-BY FOR QUEING. PATIENT BACK TO BED AND WARM BLANKET PROVIDED. THIS RN THEN TRANSFERED PATIENT TO NEW ROOM ON MS. PATIENT AND ALL BELONGINGS IN ROOM 111. PLAN OF CARE AND REPORT GIVEN TO CODY CHICAS AT THE BEDSIDE. PATIENT AGREEABLE TO PLAN OF CARE. ALL QUESTIONS ANSWERED. PATIENT PLACED ON TELE 9. PATIENTS HR REMAINS IN A.FIB/FLUTTER BUT IS RATE CONTROLLED 80-110. SURGEON NEVER SAW PATIENT TODAY.
--- NOTE | 2023-07-24 18:35 | NUR ---
Patient arrives to med surg unit via hospital bed from CCU. Report received from Jo CHICAS. Pt A+O, LSC, HR in AFib per tele, baseline at this time. Dressings to fasciotomy wound C/D/I. Skin visualized, grossly intact, large hematoma to L hip noted to be improving from prior outline. VSS. Pt on RA. Oriented to room/call light, all personal belongings in place. No needs at this time, pt takes personal phone call from family.
--- NOTE | 2023-07-24 19:22 | NUR ---
REPORT RECIEVED FROM CODY CHICAS. WOUND ASSESSED. DRESSING CDI. PATIENT C/O PAIN. BOARD UPDATED. CALL LIGHT WITHIN REACH.
--- NOTE | 2023-07-24 19:45 | EKG ---
[facility] [address] [facility] [place] [address] Signed Atrial flutter with variable AV block with premature ventricular or aberrantly conducted complexes Abnormal ECG When compared with ECG of 17-JUL-2023 11:46, Atrial flutter has replaced Atrial fibrillation ST no longer depressed in Lateral leads Confirmed by YOHANA JONAS MD ([id number]) on 07/24/2023 7:45:14 PM Electronically Signed By: YOHANA JONAS 07/24/23 1945 PATIENT NAME: LANDRUMADRIENNE DAVIS Electrocardiogram DATE OF : 45 PHYSICIAN: YOHANA JONAS REPORT #: [id number] REPORT IS CONFIDENTIAL AND NOT TO BE RELEASED WITHOUT AUTHORIZATION
--- NOTE | 2023-07-24 21:10 | NUR ---
pt HEART RATE TRENDING 120-125, UP TO 144 AT TIMES. PHONE PLACED TO MD JONAS. TELEPHONE ORDERS READ BACK TO GIVE PRN 5 MG IV LOPRESSOR NOW, ADMINISTERED, SEE MAR. UPDATED ORDER TO INCREASE CARDIZEM 60MG PO FREQUENCY FROM Q6H TO Q4H. BP WAS 115/68 (78), NO DISTRESS NOTED. RR EVEN AND UNLABORED. pt RESTING IN BED. PER DR. JONAS CURRENT PO METOPROLOL ORDERS TO REMAIN THE SAME.
--- NOTE | 2023-07-24 22:15 | NUR ---
pt HR STAYING STEADY IN THE 100'S. pt RIGHT AC IV DC'D DUE TO LEAKAGE. CATHERTER INTACT. pt REQUESTED A SNACK. ICE CREAM PROVIDED. CALL LIGHT WITHIN REACH. NO OTHER NEEDS AT THIS TIME.
--- NOTE | 2023-07-25 | NUR ---
SCHEDULED CARDIZEM ADMINISTERED, SEE MAR. pt HR UP TO 125. VITAL SIGNS STABLE. APICLE PULSE BETWEEN 98 TO 100. URINAL EMPTIED. pt IS IN NO OBVIOUS DISTRESS. RR EVEN AND UNLABORED. CALL LIGHT WITHIN REACH.
--- NOTE | 2023-07-25 02:41 | NUR ---
PATIENT HAD URINAL EMPTIED. HR IN 90'S. pt DENIES ANY PAIN AT THIS TIME. pt IS IN NO OBVIOUS DISTRESS AT THIS TIME. RR EVEN AND UNLABORED. CALL LIGHT WITHIN REACH. NO OTHER NEEDS AT THIS TIME.
[2023-07-25 04:05] VITALS: BP 113/62
--- NOTE | 2023-07-25 04:05 | NUR ---
ASSESSMEMT AND VITAL SIGNS DONE. SCHEDULED CARDIZEM ADMINISTERED, SEE MAR. APICAL PUSLE AT 84 TO 95. PATIENT DENIES ANY PAIN. RR EVEN AND UNLABORED. CALL LIGHT WITH IN REACH. NO OTHER NEEDS AT THIS TIME.
[2023-07-25 05:34] LABS: BASOPHILS 0.6 % (0-2); EOSINOPHILS 2.7 % (0-6); HEMATOCRIT 31.5 % (35.0-50.0); HEMOGLOBIN 10.6 g/dL (12.0-18.0); LYMPHOCYTES 16.8 % (24-44); MCH 32.6 (27-36); MCHC 33.6 g/dl (30-36); NEUTROPHILS 65.9 % (39-80); PLATELET COUNT 426 K/uL (140-440); RBC 3.24 M/ul (4.3-5.7); RDW 18.4 (10.5-15.0)
[2023-07-25 05:58] LABS: ALBUMIN 2.4 g/dL (3.4-5.0); ALBUMIN/GLOBULIN RATIO 0.65 (1.1-2.4); ANION GAP 10.9 (7-21); BILIRUBIN, TOTAL 0.9 ng/dL (0.2-1.0); BUN/CREATININE RATIO 12.76 (6.0-28.6); CALCIUM 8.3 mg/dL (8.5-10.1); CREATININE, SERUM 0.94 mg/dL (0.70-1.30); POTASSIUM 3.9 mmol/L (3.5-5.1); PROTEIN, TOTAL 6.1 g/dL (6.4-8.2)
--- NOTE | 2023-07-25 06:15 | NUR ---
PATIENT RESTING IN BED. pt REQUESTING CUP OF COFFEE. HR 105. CALL LIGHT IN REACH. NO OTHER NEEDS AT THIS TIME.
--- NOTE | 2023-07-25 06:51 | NUR ---
PATIENT RESTED MOST OF THE NIGHT. pt TACHY THROUGHOUT THE NIGHT. PRN LOPRESSOR WAS ADMINISTERED. pt LLE CMS INTACT. LLE RED AND SLIGHTLY WARMER THAN RLE. pt DRESSING HAS BROWN MODERATE SHADOWING WITH NO CHANGE FROM BEGINNING OF SHIFT. pt HR HAS BEEN 95 TO 105'S. RR EVEN AND UNLABORED. NO OBVIOUS DISTRESS NOTED.
--- NOTE | 2023-07-25 08:07 | NUR ---
Patient sitting up in bed watching tv, alert and oriented x4. Patient reports LLE pain is currently 1/10 and tolerable. Dressings to LLE have shadowing, per report dressing are unchanged from yesterday. Patient reports he would like to take a walk once his gets here with his slipper shoes. Patient denies needs at this time. Call light within reach.
--- NOTE | 2023-07-25 08:37 | NUR ---
TELEMETRY MONITORING SHOWS HEART RATE 130-150'S. DR JONAS AT BEDSIDE. PT DENIES ANY FEELINGS OF LIGHTHEADEDNESS, CHEST PAIN, FLUTTERING IN CHEST OR OTHER SIGNES OF AFIB RVR. PT STATES "I FEEL NOTHING, I DON'T THINK ANYTHING IS WRONG." PT STATES "MY HEART COULD STOP ANYTIME AT THAT'S JUST HOW IT IS." PT CONTINUES TO REITERATE THAT HE WOULD LIKE TO BE A FULL CODE. MD STATES TO GIVEN IV LOPRESSER, GIVEN. EDUCATION DONE WITH PT. PT EATING BREAKFAST IN BED, DECLINES TIME UP TO CHAIR. NO ADDITIONAL REQUESTS OR COMPLAINTS. CALL LIGHT WITHIN REACH. BED RAILS UP.
[2023-07-25 09:15] VITALS: BP 112/56
--- NOTE | 2023-07-25 11:59 | NUR ---
Patient assisted back to bed. Patient's heart rate increased to 144bpm per tele with ambulation from chair to bed. Heart rate decreased to 100bpm after patient layed down in bed. Schedule cardizem admin at this time. Patient denies needs at this time.
[2023-07-25 13:45] VITALS: BP 111/58
--- NOTE | 2023-07-25 15:30 | NUR ---
WHILE PATIENT AND I WERE WALKING NURSE CODY WAS FOLLOWING BEHIND WITH WHEELCHAIR. PATIENT HAD HIS GAIT BELT ON AND ALSO USED HIS WALKER. WE WALKED ALL THE WAY DOWN TO THE FRONT OF THE HOPITAL WHERE THE FIREPLACE IS. WE SET DOWN THERE FOR 10 OR 15 MIN. THAN WALKED BACK TO HIS ROOM. WE WERE WATCHING HIS HEART RATE. PATIENT HAD A TELE ON. PATIENT WORE HIS OWN SHOES. PATIENT WAS REALY HAPPY THAT WE TOOK THE TIME TO BE ABLE TO TAKE HIM FOR A WALK.
--- NOTE | 2023-07-25 15:41 | NUR ---
Patient walked to lobby with RN and DISK SHARPENER SBA. Patient tolerated ambulation well. Tylenol 650mg po admin at this time for reports of 3/10 lle pain.
--- NOTE | 2023-07-25 16:27 | NUR ---
Serous drainage leaking through small portion of distal dressing to LLE. Attempted to reach out to Dr. Rjoo, no answer. Dressing remains adhered over wound site. Will continue to monitor and reinforce dressing if indicated. LLE remains elevated, cms intact.
[2023-07-25 17:50] VITALS: BP 121/57
--- NOTE | 2023-07-25 19:05 | NUR ---
REPORT RECIEVED FROM DC CHICAS. BOARD UPDATED. WARM BLANKET GIVEN. PATIENT RESTING IN BED. CALL LIGHT WITHIN REACH. NO OTHER NEEDS AT THIS TIME.
[2023-07-25 20:00] VITALS: BP 109/69
--- NOTE | 2023-07-25 20:00 | NUR ---
ASSESSMENT AND VITAL SIGNS DONE. URINAL EMPTIED. IV ASSESSED, WNL. LLE LARGE AMMOUNT OF SHADOWING ON ACTECOTE. DRESSING STILL INTACT. WILL REINFORCE IF NEEDED. WATER REFRESHED. SCHEDULED MEDICATION ADMINISTERED. RR EVEN AND UNLABORED. NO DISTRESS NOTED. pt DOES NOT C/O PAIN AT THIS TIME. LLE CMS INTACT, MINIMAL SWELLING AND BRUISING. CALL LIGHT WITHIN REACH. NO OTHER NEEDS AT THIS TIME.
[2023-07-26 00:14] VITALS: BP 110/57
--- NOTE | 2023-07-26 00:23 | NUR ---
ASSESSMENT AND VITAL SIGNS DONE. pt RESTING IN BED. APICAL PULSE AT 100. LARGE AMMOUNT OF SHADOWING ON BANADAGE ON LLE. NO NEW DRAINAGE AT THIS TIME. CALL LIGHT WITHIN REACH. NO OTHER NEEDS AT THIS TIME. SCHEDULED MEDICATION ADMINISTERED
--- NOTE | 2023-07-26 01:00 | NUR ---
pt HR INCRASED TO 146 AND STAYED BETWEEN 125-137. pt HAD NO OBVIOUS SIGNS OF DISTRESS. PRN LOPRESSOR ADMINISTER FOR HR >120. RR EVEN AND UNLABORED. CALL LIGHT WITHIN REACH. NO OTHER NEEDS AT THIS TIME. HR NOW AT 95.
[2023-07-26 04:02] VITALS: BP 100/62
--- NOTE | 2023-07-26 04:08 | NUR ---
SCHEDULED MEDICATION ADMINISTERED. LLE LARGE AMMOUNT OF SHADOWING ON DRESSING. NO CHANGE FROM BEGINNING OF SHIFT. VITAL SIGNS DONE. CALL LIGHT WITHIN REACH.
--- NOTE | 2023-07-26 06:05 | NUR ---
PATIENT RESTING IN BED WATCHING TV. RR EVEN AND UNLABORED. CALL LIGHT WITHIN REACH. NO OTHER NEEDS AT THIS TIME.
--- NOTE | 2023-07-26 06:21 | NUR ---
PATIENT HR 137. pt IS MOVING AROUND, BENDING AT THE WASTE. AFTER pt RESTED HR CAME DOWN TO 106 AT THAT BETWEEN 105 TO 115. pt IS IN NO OBVIOUS DISTRESS. RR EVEN AND UNLABORED.
--- NOTE | 2023-07-26 08:13 | NUR ---
recieved shift report from nurse this morning. pt is currently awake. after assessing vitals pt heart rate is showing an tachy irregular rhythm. pt given hr meds. pt is now eating breakfast and call light within reach
--- NOTE | 2023-07-26 09:26 | NUR ---
PT IS CURRENTLY SITTING UP IN CHAIR. ASSESSMENT COMPLETE. NO ABNORMAL FINDINGS OUTSIDE OF LAST ASSESSMENT. LEGS ELEVATED. NO OTHER CARES NEEDED OR REQUESTED AT THIS TIME. CALL LIGHT WITHIN REACH
[2023-07-26 09:44] VITALS: BP 90/52
--- NOTE | 2023-07-26 09:50 | NUR ---
PATIENT IN CHAIR AFTER BREAKFAST. VITALS AND I/O'S COMPLETED. CALL LIGHT WITHIN REACH.
--- NOTE | 2023-07-26 10:46 | NUR ---
PT DRESSING TO LLE SATURATED AND DRAINING OUT OF DRESSING. DR GARCIA CONTACTED HE STATES THE DRESSING SHOULD BE CHANGED FOR A FRESH SURGICAL DRESSING IF AVAILABLE OR DRY GAUZE. DRESSING CHANGED. IS PRESENT IN THE ROOM. PT CONTINUES TO DENY PAIN OR NEEDS OF.
--- NOTE | 2023-07-26 11:06 | NUR ---
PT IS CURRENTLY WALKING THE HALLS WITH PHYSICAL THERAPY AND IS PRESENT.
--- NOTE | 2023-07-26 11:35 | NUR ---
PT UP WORKING WITH P/T HR IS ELEVATED. NOTIFIED BY CCU SUSTAINED HR OVER 120. PT BACK TO THE CHAIR HR BEGINS TO DECLINE SLOWLY. MONITORING TELE AT THIS TIME TO SEE IF LOPRESSOR IS INDICATED. PT DENIES ANY S/S CONTINUES RESTING IN RECLINER
--- NOTE | 2023-07-26 11:53 | NUR ---
HR CONTINUES TO BE TACHY 114-140'S LOPRESSOR ADMINISTERED. PT IS UP IN THE CHAIR WATCHING TV, VISITING WITH HIS . CALL LIGHT AND NEEDED ITEMS IN REACH.
--- NOTE | 2023-07-26 12:11 | NUR ---
pt is sitting up in chair eating lunch. in room present. no other cares needed or requested at this time. needed items are within reach
--- NOTE | 2023-07-26 13:32 | NUR ---
pt is currently sitting up in hic chair working on his computer. no other cares needed at this time. call light within reach
[2023-07-26 13:46] VITALS: BP 101/52
--- NOTE | 2023-07-26 15:28 | NUR ---
pt is requesing to go for a walk. will give medication diltiazem. then go for walk.
--- NOTE | 2023-07-26 16:08 | NUR ---
PT UP AMBULATING THE ROMERO WITH STAFF SBA. HR DOES NOT INCREASE BY MUCH, AMBULATION WELL TOLERATED.
[2023-07-26 17:57] VITALS: BP 126/83
--- NOTE | 2023-07-26 19:45 | NUR ---
REPORT RECEIVED FROM AVIVA KONG AND AVIVA MERIDA. pt RESTING IN BED AWAKE. DENIES NEED FOR PRN PAIN MEDICATION. LEFT LEG ELEVATED ON PILLOW, SS DRAINAGE ON NOTED ON LOWER HALF OF DRESSING.
[2023-07-26 21:10] VITALS: BP 110/69
--- NOTE | 2023-07-26 21:35 | NUR ---
CCU PHONED, pt HEART RATE ELEVATED 130S ON TELE 9, IRREGULAR RHYTHM. PRN LOPRESSOR ADMINISTERED, SCHEDULED MEDICATIONS ADMINISTERED. ASSESSMENT COMPLETE. pt COMPLAINS OF SOME DISCOMFORT IN LLE. DOES NOT RATE PAIN, STATES THROBBING. PEDAL PULSE PALPATED, SENSATION INTACT. PRN TYLENOL ADMINISTERED. ICE CREAM CUP PROVIDED. CALL LIGHT IN REACH.
--- NOTE | 2023-07-26 23:30 | NUR ---
CHECKED ON pt. RESTING IN BED ON BACK WITH EYES CLOSED. BREATHING UNLABORED. HR 109-110 ON TELE 9.
[2023-07-27 02:24] VITALS: BP 103/57
--- NOTE | 2023-07-27 02:25 | NUR ---
pt AWAKE RESTING IN BED, STATES "I SLEPT GREAT". VSS. LLE SENSATION INTACT, STRONG PEDAL PULSE. COFFEE PROVIDED. CALL LIGHT IN REACH.
[2023-07-27 05:23] VITALS: BP 121/60
--- NOTE | 2023-07-27 05:36 | NUR ---
PHONE CALL FROM CCU, pt'S HR NOTED 120S-140 ON TELE. PRN LOPRESSOR ADMINISTERED IV WNL. VS COMPLETE. CALL LIGHT IN REACH.
--- NOTE | 2023-07-27 07:02 | NUR ---
CALL LIGHT ANSWERED. pt REQUESTING TO GET UP TO CHAIR. HR NOTED UP TO 140S GETTING TO SIDE OF BED. pt ENCOURAGED TO STAY IN BED, HR BACK DOWN TO 110-112 AT REST. UP CHAIR PER pt REQUEST. HR 105-110 AT REST. PERSONAL SUPPLIES IN REACH. pt FRUSTRATED WITH HIGH HEART RATES. CALL LIGHT WITHIN REACH.
--- NOTE | 2023-07-27 07:38 | NUR ---
RECIEVED REPORT FROM NURSE. PT IS CURRENTLY SITTING UP IN CHAIR WITH LEGS ELEVATED. NO OTHER CARES NEEDED AT THIS TIME CALL LIGHT WITHIN REACH
--- NOTE | 2023-07-27 08:30 | NUR ---
Update from Dr. Cavazos and then again at 0830 meeting. Plan for now is for pt to be evaluated after lunch t determine dc plan.
--- NOTE | 2023-07-27 09:54 | NUR ---
pt is currently sitting up in chair. assessment complete. dressing on wound is having serous drainage. bandage will be changed this afternoon before lunch. in room present. dr garcia is talking to pt about care and possible discharge if assessment medication regimen works. no abnormal findings no other cares needed or requested at this time. call light within reach
[2023-07-27 10:38] VITALS: BP 105/52
--- NOTE | 2023-07-27 10:50 | NUR ---
Spoke with the in the [facility]. She has questions regarding dc and if pt will need dressing changes, PT/OT, and alcohol counseling. Let her know I will have answers closer to dc. Pt is wanting OP therapy. I will speak with the for her concerns and questions.
--- NOTE | 2023-07-27 11:16 | NUR ---
pt had dresing change on left leg. 2 abd pads wrapped with gauze per DR GARCIA'S ORDER FROM YESTERDAYS PHONECALL.
--- NOTE | 2023-07-27 11:43 | NUR ---
EDUCATION PROVIDED ON WOUND CARE, AND DRESSING CHANGE DEMONSTRATED FOR PT. HE ASKS APPROPRIATE QUESTIONS AND VERBALIZES CLEAR UNDERSTANDING.
[2023-07-27] MEDS ORDERED: ELIQUIS5 MG PO (11:50)
[2023-07-27] MEDS ORDERED: METOPROLOL SUCC50 MG PO (11:50)
[2023-07-27] MEDS ORDERED: DILTIAZEM 24HR300 M1 PO (11:51)
--- NOTE | 2023-07-27 12:40 | NUR ---
pt is curRENTLY SITTING UP IN HIS CHAIR RESTING WITH EYES CLOTHES AND LEGS ELEVATED. BREATHING NOTICED AND UNLABORED. NO CARES NEEDED AT THIS TIME CALL LIGHT WITHIN REACH
--- NOTE | 2023-07-27 13:45 | NUR ---
Spoke with pt and Dr. Cavazos in the room. has asked the to return for instructions on wound care. Pt has been scheduled with fu appts and with cardiology. I discussed with pt if he would like to speak with JESUS about his alcohol addiction. He states he is aware he went through DTs, but really isn't interested in working with anyone. will return for instructions from RN. Pt to dc to home today. Has a walker and wc at home if needed.
--- NOTE | 2023-07-27 14:14 | NUR ---
pt is in room sitting up in his chair. just talked to dr and discharge is in the works.
[2023-07-27 14:30] VITALS: BP 103/71
== END 2023-07-27 16:10 | disposition home or self-care (01) | DRG 907 ==
LOC: ED 22:38 → CCU 22:40 → MS 07-15 07:25 → CCU 07-15 07:26 → MS 07-22 11:30 → CCU 07-24 05:05 → MS 07-24 05:05 → CCU 07-24 18:10 → MS 07-25 11:00
PROVIDERS: Emergency Medicine; Family Medicine; Internal Medicine; Surgery; ADMIT Family Medicine; ATTEND Family Medicine
PROC: 0KNT0ZZ Release Left Lower Leg Muscle, Open Approach (ICD-10-PCS; 2023-07-15)
PROC: 0KNT0ZZ Release Left Lower Leg Muscle, Open Approach (ICD-10-PCS; 2023-07-15)
PROC: 0KNT0ZZ Release Left Lower Leg Muscle, Open Approach (ICD-10-PCS; 2023-07-15)
PROC: 0KCT0ZZ Extirpation of Matter from Left Lower Leg Muscle, Open Approach (ICD-10-PCS; 2023-07-15)
PROC: 4A0F3BE Measurement of Musculoskeletal Pressure, Compartment, Percutaneous Approach (ICD-10-PCS; 2023-07-15)
PROC: 30233N1 Transfusion of Nonautologous Red Blood Cells into Peripheral Vein, Percutaneous Approach (ICD-10-PCS; 2023-07-15)
PROC: HZ2ZZZZ Detoxification Services for Substance Abuse Treatment (ICD-10-PCS; 2023-07-15)
PROC: 0KNT0ZZ Release Left Lower Leg Muscle, Open Approach (ICD-10-PCS; principal; 2023-07-15 11:00)
PROC: 0DB68ZX Excision of Stomach, Via Natural or Artificial Opening Endoscopic, Diagnostic (ICD-10-PCS; 2023-07-20)
PROC: 0DJD8ZZ Inspection of Lower Intestinal Tract, Via Natural or Artificial Opening Endoscopic (ICD-10-PCS; 2023-07-20)
PROC: 0JQP0ZZ Repair Left Lower Leg Subcutaneous Tissue and Fascia, Open Approach (ICD-10-PCS; 2023-07-23)
DX: T79.A22A Traumatic compartment syndrome of left lower extremity, initial encounter (principal); J18.9 Pneumonia, unspecified organism; K57.31 Diverticulosis of large intestine without perforation or abscess with bleeding; I48.20 Chronic atrial fibrillation, unspecified; I82.432 Acute embolism and thrombosis of left popliteal vein; N39.0 Urinary tract infection, site not specified; F10.232 Alcohol dependence with withdrawal with perceptual disturbance; S80.12XA Contusion of left lower leg, initial encounter; W18.39XA Other fall on same level, initial encounter; R79.1 Abnormal coagulation profile; S00.03XA Contusion of scalp, initial encounter; K21.9 Gastro-esophageal reflux disease without esophagitis; E83.39 Other disorders of phosphorus metabolism; E87.6 Hypokalemia; Y92.002 Bathroom of unspecified non-institutional (private) residence as the place of occurrence of the external cause; E53.8 Deficiency of other specified B group vitamins; Y90.8 Blood alcohol level of 240 mg/100 ml or more; Z71.41 Alcohol abuse counseling and surveillance of alcoholic; Z79.01 Long term (current) use of anticoagulants
CPT/HCPCS: 00731; 00811; 01470; 36415; 36430; 36600; 70450; 70551; 71045; 72125; 76881; 80048; 80053; 80076; 81001; 82803; 83735; 84100; 84484; 85025; 85060; 85610; 86850; 86900; 86901; 86922; 87040; 87088; 88304; 88305; 93005; 93010; 93971; 96374; 96375; 96376; 97110; 97116; 97162; 97164; 97165; 97166; 97530; 97535; 99285-25; A9270; A9270-GY; C9113; G0378; G0480; J0131; J0690; J0696; J0780; J1170; J2001; J2060; J2270; J2405; J2560; J2704; J3010; J3411; J3430; J3475; J3490; J7030; J7060; J7121; P9016